=== PATIENT | female | born 1950 | race Caucasian/White ===

== ENCOUNTER → 2018-05-29 | Outpatient (CLI) | payer OTHER | LOC: M PAIN 10:00 | DX: M53.3 Sacrococcygeal disorders, not elsewhere classified (principal); M43.17 Spondylolisthesis, lumbosacral region; H40.9 Unspecified glaucoma; E78.5 Hyperlipidemia, unspecified; G25.81 Restless legs syndrome; Z79.82 Long term (current) use of aspirin; Z79.891 Long term (current) use of opiate analgesic; Z79.899 Other long term (current) drug therapy; Z88.0 Allergy status to penicillin; Z85.3 Personal history of malignant neoplasm of breast; Z90.49 Acquired absence of other specified parts of digestive tract | CPT/HCPCS: G0463 ==

== ENCOUNTER → 2018-06-18 | Outpatient (CLI) | payer OTHER ==
[~2018-06-18] MED LIST: BUPIVACAINE HCL 0.25% 30 ML VIAL As Ordered; ISOVUE-M 300 61% 15ML VIAL (Q9967) As Ordered; LIDOCAINE 1% SDV INJ 30 ML VIAL As Ordered; TRIAMCINOLONE ACETONIDE SUSP 40 MG/ML VIAL (J3301) As Ordered; diazePAM 5 MG TAB As Ordered
== END ==
LOC: M PAIN 08:30
DX: G89.29 Other chronic pain (principal); M46.1 Sacroiliitis, not elsewhere classified; M53.88 Other specified dorsopathies, sacral and sacrococcygeal region; E78.5 Hyperlipidemia, unspecified; G25.81 Restless legs syndrome; J30.9 Allergic rhinitis, unspecified; M85.80 Other specified disorders of bone density and structure, unspecified site; Z79.82 Long term (current) use of aspirin; Z79.899 Other long term (current) drug therapy; Z88.0 Allergy status to penicillin; Z85.3 Personal history of malignant neoplasm of breast; Z96.652 Presence of left artificial knee joint; Z90.13 Acquired absence of bilateral breasts and nipples; Z87.891 Personal history of nicotine dependence
CPT/HCPCS: J3301

== ENCOUNTER → 2018-07-02 | Outpatient (CLI) | payer OTHER | LOC: M PAIN 09:45 | DX: M53.3 Sacrococcygeal disorders, not elsewhere classified (principal); M43.17 Spondylolisthesis, lumbosacral region; H40.9 Unspecified glaucoma; J30.9 Allergic rhinitis, unspecified; E78.5 Hyperlipidemia, unspecified; M85.80 Other specified disorders of bone density and structure, unspecified site; K64.8 Other hemorrhoids; G25.81 Restless legs syndrome; Z85.3 Personal history of malignant neoplasm of breast; Z79.82 Long term (current) use of aspirin; Z79.899 Other long term (current) drug therapy; Z96.652 Presence of left artificial knee joint; Z90.13 Acquired absence of bilateral breasts and nipples; Z90.49 Acquired absence of other specified parts of digestive tract; Z87.891 Personal history of nicotine dependence; Z88.0 Allergy status to penicillin | CPT/HCPCS: G0463 ==

== ENCOUNTER → 2018-08-22 | Outpatient (CLI) | payer OTHER | LOC: M PAIN 09:30 | DX: M53.3 Sacrococcygeal disorders, not elsewhere classified (principal); M43.17 Spondylolisthesis, lumbosacral region; G89.29 Other chronic pain; E78.5 Hyperlipidemia, unspecified; M85.80 Other specified disorders of bone density and structure, unspecified site; G25.81 Restless legs syndrome; Z79.82 Long term (current) use of aspirin; Z79.899 Other long term (current) drug therapy; Z88.0 Allergy status to penicillin; Z85.3 Personal history of malignant neoplasm of breast | CPT/HCPCS: G0463 ==

== ENCOUNTER → 2018-09-19 | Outpatient (CLI) | payer OTHER | LOC: M PAIN 14:30 | DX: M46.1 Sacroiliitis, not elsewhere classified (principal); M53.88 Other specified dorsopathies, sacral and sacrococcygeal region; G89.29 Other chronic pain; J30.9 Allergic rhinitis, unspecified; E78.5 Hyperlipidemia, unspecified; M85.80 Other specified disorders of bone density and structure, unspecified site; G25.81 Restless legs syndrome; L40.9 Psoriasis, unspecified; Z79.82 Long term (current) use of aspirin; Z79.899 Other long term (current) drug therapy; Z88.0 Allergy status to penicillin; Z85.3 Personal history of malignant neoplasm of breast; Z87.891 Personal history of nicotine dependence; Z90.13 Acquired absence of bilateral breasts and nipples; Z96.652 Presence of left artificial knee joint | CPT/HCPCS: J3301 ==

== ENCOUNTER → 2018-10-14 | Outpatient (CLI) | payer OTHER | LOC: M PAIN 11:45 | DX: M53.3 Sacrococcygeal disorders, not elsewhere classified (principal); M43.17 Spondylolisthesis, lumbosacral region; J30.9 Allergic rhinitis, unspecified; E78.5 Hyperlipidemia, unspecified; G25.81 Restless legs syndrome; M85.80 Other specified disorders of bone density and structure, unspecified site; Z79.82 Long term (current) use of aspirin; Z79.899 Other long term (current) drug therapy; Z88.0 Allergy status to penicillin; Z85.3 Personal history of malignant neoplasm of breast; Z87.891 Personal history of nicotine dependence; Z96.652 Presence of left artificial knee joint; Z90.13 Acquired absence of bilateral breasts and nipples | CPT/HCPCS: G0463 ==

== ENCOUNTER → 2019-01-14 | Outpatient (CLI) | payer OTHER ==
--- NOTE | 2019-01-28 02:45 | ECWPNPC ---
PATIENT NAME: CYNTHIA LAROSE : 1950 GENDER: FEMALE VISIT DATE: 01/14/2019 DISCHARGE DATE: 01/14/19 1123 VISIT LOCKED DATE TIME: PHYSICIAN: SAHSHI NGUYEN RESOURCE: SHASHI NGUYEN DISCLAIMER : THIS IS A VISIT SUMMARY EXTRACTED FROM THE [facility] CHART. IT IS NOT A COPY OF THE [employer] [employer] PROGRESS NOTE. MTDD
== END ==
LOC: M PAIN 10:00
PROVIDERS: ATTEND Nurse Practitioner Family
DX: M53.3 Sacrococcygeal disorders, not elsewhere classified (principal); M43.17 Spondylolisthesis, lumbosacral region; G89.29 Other chronic pain; J30.9 Allergic rhinitis, unspecified; E78.5 Hyperlipidemia, unspecified; M85.80 Other specified disorders of bone density and structure, unspecified site; G25.81 Restless legs syndrome; Z79.82 Long term (current) use of aspirin; Z79.899 Other long term (current) drug therapy; Z88.0 Allergy status to penicillin; Z96.652 Presence of left artificial knee joint; Z87.891 Personal history of nicotine dependence; Z85.3 Personal history of malignant neoplasm of breast

== ENCOUNTER → 2019-01-23 | Outpatient (CLI) | payer OTHER ==
[~2019-01-23] MED LIST changes: -BUPIVACAINE HCL 0.25% 30 ML VIAL As Ordered; +BUPIVACAINE HCL 0.25% 30 ML VIAL As Ordered ONE; -ISOVUE-M 300 61% 15ML VIAL (Q9967) As Ordered; +ISOVUE-M 300 61% 15ML VIAL (Q9967) As Ordered ONE; -LIDOCAINE 1% SDV INJ 30 ML VIAL As Ordered; +LIDOCAINE 1% SDV INJ 30 ML VIAL As Ordered ONE; -TRIAMCINOLONE ACETONIDE SUSP 40 MG/ML VIAL (J3301) As Ordered; +TRIAMCINOLONE ACETONIDE SUSP 40 MG/ML VIAL (J3301) As Ordered ONE; -diazePAM 5 MG TAB As Ordered; +diazePAM 5 MG TAB As Ordered ONE
--- NOTE | 2019-01-23 13:40 | REP ---
Partial SI joint series: Bilateral seven views. History: SI joint injection procedure for pain. 18 seconds of fluoroscopy time is reported. Findings: A sequence of seven last image hold fluoroscopically obtained spot radiographs of the SI joints document various needle positions associated with bilateral SI joint injection procedure. Electronically Signed by Jasmeet Johnson MD 01/23/2019 01:46 P
--- NOTE | 2019-02-09 23:27 | ECWPNPC ---
PATIENT NAME: CYNTHIA LAROSE : 1950 GENDER: FEMALE VISIT DATE: 01/23/2019 DISCHARGE DATE: 01/23/19 1313 VISIT LOCKED DATE TIME: PHYSICIAN: DIANA BOOKER MD RESOURCE: DIANA BOOKER MD REASON FOR APPOINTMENT 1. BILAT. SIJ HISTORY OF PRESENT ILLNESS HISTORY OF PRESENT ILLNESS: PAIN THE PATIENT DESCRIBES THE PAIN... FALL RISK SCREENING: SCREENING : NO FALLS IN THE PAST YEAR. CURRENT MEDICATIONS TAKING LATANOPROST 0.005 % SOLUTION 1 DROP INTO AFFECTED EYE IN THE EVENING OPHTHALMIC ONCE A DAY, NOTES: 01/22/19 2100 TAKING CYCLOSPORINE 0.1 % EMULSION OPHTHALMIC , NOTES: 01/22/19 2100 TAKING TIMOLOL MALEATE 0.25 % SOLUTION 1 DROP INTO AFFECTED EYE OPHTHALMIC ONCE A DAY, NOTES: 01/23/19 0800 TAKING ROPINIROLE HCL 0.5 MG TABLET 1 TABLET 1 TO 3 HOURS BEFORE BEDTIME ORALLY ONCE A DAY, NOTES: 01/22/19 2100 TAKING TRAMADOL HCL 50 MG TABLET 1 TABLET NEEDED ORALLY EVERY 6 HRS, NOTES: 01/22/19 1400 TAKING OMEPRAZOLE 20 MG CAPSULE DELAYED RELEASE 1 CAPSULE ORALLY ONCE A DAY, NOTES: 01/23/19 0800 TAKING ATORVASTATIN CALCIUM 10 MG TABLET 1 TABLET ORALLY ONCE A DAY, NOTES: 01/23/19 2100 TAKING ASPIRIN 81 MG TABLET CHEWABLE 1 TABLET ORALLY ONCE A DAY, NOTES: 01/23/19 0800 TAKING MAY HAVE CBD OIL ORALLY BID, NOTES: 01/23/19 0800 NOT-TAKING CALTRATE 600+D 600-800 MG-UNIT TABLET 1 TABLET WITH A MEAL ORALLY ONCE A DAY MEDICATION LIST REVIEWED AND RECONCILED WITH THE PATIENT PAST MEDICAL HISTORY GLAUCOMA LOW BACK PAIN ALLERGIC RHINITIS HYPERLIPIDEMIA DYSPEPSIA, DYSPHAGIA OSTEOPENIA CHOLELITHIASIS HEMORRHOIDS RECTAL MASS RESTLESS LEGS BREAST CANCER ALLERGIES PENICILLIN (FOR ALLERGIES USE ONLY): JOINT PAIN SURGICAL HISTORY LEFT KNEE REPLACEMENT TONSILLECTOMY BILAT MASTECTOMY RIGHT SUBCLAVIAN PORT PLACED AND REMOVED CHOLECYSTECTOMY FAMILY HISTORY FATHER: MOTHER: 89 YRS 2 BROTHER(S) , 1 SISTER(S) - HEALTHY. FATHER-ALZHEIMERS AND PSYCHIATRICE PROBLEMS. SOCIAL HISTORY GENERAL: TOBACCO USE ARE YOU A:FORMER SMOKER LATEX QUESTIONNAIRE LATEX ALLERGY : HAVE YOU EVER DEVELOPED ANY TYPE OF REACTION AFTER HANDLING LATEX PRODUCTS SUCH RUBBER GLOVES, CONDOMS, DIAPHRAGMS, BALLOONS, SOCKS, OR UNDERWEAR?NO LATEX ALLERGY : HAVE YOU EVER DEVELOPED ANY TYPE OF REACTION DURING OR AFTER DENTAL APPOINTMENT, VAGINAL/RECTAL EXAMINATION, SURGICAL PROCEDURE, OR ANY OTHER EXPOSURE?NO LATEX RISK : HAVE YOU EVER HAD ANY DIFFICULTY BREATHING OR HIVES AFTER EATING OR HANDLING ANY FRUITS, OR VEGETABLES; SUCH KIWI, BANANAS, STONE FRUITS, OR CHESTNUTSNO LATEX RISK : DO YOU HAVE A PREVIOUS PERSONAL HISTORY OF MORE THAN NINE SURGERIES, SPINA BIFIDA, OR REPEATED CATHERTIZATIONS? NO LATEX RISK : ARE YOU FREQUENTLY EXPOSED TO LATEX PRODUCTS IN YOUR OCCUPATION?NO DATE ASKED : 01/23/2019 RESTORATION [id number] OTHER LANGUAGE LANGUAGES SPOKEN:QATARI EDUCATION LEVEL OF EDUCATION:FINISHED [employer] DEGREE LEARNING BARRIERS / SPECIAL NEEDS BARRIERS TO LEARNING?NO HEARING IMPAIRED?NO VISION IMPAIRED?YES :CORRECTIVE LENSES COGNITIVELY IMPAIRED?NO READINESS TO LEARN?YES LEARNING PREFERENCES?NO EMOTIONAL BARRIERS?NO SPECIAL DEVICES?YES :CANE OCCUPATION: RETIRED FROM [employer] WORKING WITH MENTALLY DISABLED. DIET: REGULAR. EXERCISE: NONE. MARITAL STATUS: SINGLE. OTHERS AT HOME: OTHER NON-RELATIVE. PAIN CLINIC PFS, CLERGY, PUBLIC HEALTH REFERRALS HAS THE PATIENT BEEN EDUCATED REGARDING HIS/HER PLAN OF CARE?YES HAS THE PATIENT BEEN EDUCATED REGARDING PAIN, THE RISK FOR PAIN, THE IMPORTANCE OF EFFECTIVE PAIN MANAGEMENT, AND THE PAIN ASSESSMENT PROCESS?YES ADVANCE DIRECTIVE ADVANCE DIRECTIVE DISCUSSED WITH PATIENT:YES ON FILE @[facility] NavneetDarryn MELENDEZ BRENDA [phone] HCP REVIEWED NL 10/14/18REVIEWED WITH PT 01/23/19 1115 LAS. HOSPITALIZATION/MAJOR DIAGNOSTIC PROCEDURE SURGERIES REVIEW OF SYSTEMS REVIEWED BY: PROVIDER: . CONSTITUTIONAL: ANY CHANGE IN YOUR MEDICAL CONDITION? NO . CHILLS NO . FEVER NO . INFECTION: DO YOU HAVE NEW INFECTIONS? NO . DO YOU HAVE HISTORY OF MRSA? NO . MUSCULOSKELETAL: ANY NEW PATTERNS OF PAIN OR NUMBNESS? NO . GASTROENTEROLOGY: ANY NEW CHANGE IN BOWEL CONTROL? NO . GENITOURINARY: ANY NEW CHANGE IN BLADDER CONTROL? NO . IS THERE A CHANCE YOU COULD BE ? NO . HEMATOLOGY/LYMPH: DO YOU TAKE ANY BLOOD THINNERS? (FOR EXAMPLE- COUMADIN, PLAVIX, AGGRENOX, PLATEL, PRADAXA, OR XARELTO) NO . WHEN WAS YOUR LAST DOSE? DATE: TIME: . NEUROLOGY: HAVE YOU FALLEN IN THE PAST 12 MONTHS? NO . ANY NEW EXTREMITY NUMBNESS OR WEAKNESS? NO . CARDIOLOGY: DO YOU HAVE A PACEMAKER OR DEFIBRILLATOR? NO . RESPIRATORY: HAVE YOU BEEN SICK IN THE PAST WEEK? NO . FEVER NO . FLU LIKE SYMPTOMS? NO . COUGH NO . INTEGUMENTARY: DO YOU HAVE ANY RASHES OR OPEN SORES? NO . ALLERGIC/IMMUNO: ARE YOU ALLERGIC TO IV DYE? NO . ANY NEW ALLERGIES? NO . PSYCHIATRIC: DO YOU HAVE THOUGHTS OF HURTING YOURSELF OR SOMEONE ELSE? NO . ARE YOU ABUSED, NEGLECTED, OR IN AN UNSAFE ENVIRONMENT? NO . ENDOCRINOLOGY: ARE YOU DIABETIC? NO . OTHER: DO YOU NEED ANY PRESCRIPTIONS? NO . IF YES, PLEASE LIST: ____ . ANY NEW PROBLEMS WITH YOUR MEDICATIONS? NO . WHEN DID YOU LAST EAT? ____01/22/191899 . WHEN DID YOU LAST DRINK? ____01/22/192114 . WHAT DID YOU LAST DRINK? ____TEA . NAME OF PERSON DRIVING YOU HOME? ____CHRIS . DO YOU HAVE ANY OTHER QUESTIONS OR CONCERNS NO . VITAL SIGNS WT 226.2 LBS, HT 69 IN, BMI 33.40 INDEX, BP 118/78 MM HG, HR 84 /MIN, RR 16 /MIN, TEMP 98.0 F, OXYGEN SAT % 95%, SAFE IN ENV? (Y/N) YES, NA INITIALS AR 11:03, REVIEWED BY: ASSESSMENTS SACROILIITIS, NOT ELSEWHERE CLASSIFIED - M46.1 (PRIMARY) PROCEDURES PN SI PRE PROCEDURE DIAGNOSIS SACROILIITIS, SACROILIAC JOINT DYSFUNCTION POST PROCEDURE DIAGNOSIS SACROILIITIS, SACROILIAC JOINT DYSFUNCTION PROCEDURE BILATERAL SACROILIAC JOINT BLOCK SURGEON DR. DIANA BOOKER JEWELRY ENGRAVER NONE ANESTHESIA LOCAL PRE PROCEDURE NOTE PATIENT WITH HISTORY OF CHRONIC LOW BACK PAIN. I EVALUATED THE PATIENT AND REVIEWED THE CHART. I WENT OVER THE RISKS, ALTERNATIVES, AND BENEFITS ASSOCIATED WITH THIS PROCEDURE. THE PATIENT WOULD LIKE TO PROCEED AND GAVE CONSENT TO PERFORM THE PROCEDURE. THE PATIENT DENIES UNEXPLAINABLE WEIGHT LOSS, FEVER, CHILLS, OR NEW CHANGES IN URINARY OR BOWEL CONTROL DESCRIPTION OF PROCEDURE THE PATIENT WAS BROUGHT TO THE PROCEDURE ROOM AND PLACED IN THE PRONE POSITION. THE LUMBOSACRAL AREA WAS CLEANED WITH CHLORAPREP SOLUTION AND DRAPED ASEPTICALLY. THE PROCEDURE WAS DONE UNDER STERILE CONDITIONS. I CHECKED LATERALITY AND THE LEVEL WHERE THE PROCEDURE WAS GOING TO BE PERFORMED WITH THE PATIENT AND THE SUPPORTING STAFF AT THE MOMENT OF THE TIME OUT IN THE PROCEDURE ROOM. UNDER FLUOROSCOPIC GUIDANCE, TARGET POINT WAS SELECTED AT THE LOWER BORDER OF THE RIGHT AND LEFT SACROILIAC JOINT. TARGET POINT WAS SELECTED AFTER MEDIAL ROTATION AND TILT OF THE MAGNIFIER OF THE C-ARM. LIDOCAINE WAS USED TO NUMB THE SKIN AND SUBCUTANEOUS TISSUE BELOW IT. A SPINAL NEEDLE, 22-GAUGE, WAS ADVANCED UNDER FLUOROSCOPIC GUIDANCE AND FOLLOWING PATIENT FEEDBACK UNTIL THE TARGET AREA WAS TOUCHED. THE POSITION OF THE NEEDLE WAS VERIFIED WITH AP AND LATERAL VIEWS. AFTER PROPER POSITION OF THE NEEDLE WAS ACHIEVED, ISOVUE M DYE 30%, 0.25 ML, WAS INJECTED SHOWING SPREAD OF THE DYE. THEN, A SOLUTION OF 20 MG OF KENALOG WAS INJECTED IN RIGHT AND LEFT JOINT WITH 3 ML OF BUPIVACAINE 0.125%. THERE WAS NO EVIDENCE OF BLOOD, PARESTHESIA OR CEREBROSPINAL FLUID DURING THE PROCEDURE. THE PATIENT WAS SENT TO THE RECOVERY ROOM. THE PATIENT WAS MOVING THE EXTREMITIES AND DOING WELL. THERE WAS NO COMPLICATION DURING THE PROCEDURE. FLUOROSCOPY TIME WAS 18 SECONDS POST PROCEDURE NOTE THE PATIENT WILL BE SEEN IN A FOLLOW UP IN THE NEXT FEW WEEKS. INSTRUCTIONS WERE GIVEN, QUESTIONS WERE ANSWERED, AND THE PATIENT EXPRESSED UNDERSTANDING AND AGREED WITH THE PLAN. I, KELLEY RAMOS, DOCUMENTED THE ABOVE INFORMATION ACTING A SCRIBE FOR DR. BOOKER. I HAVE REVIEWED THE ABOVE DOCUMENT, WRITTEN BY KELLEY KERNS AND I VERIFY THAT IT IS ACCURATE. DIAGNOSTIC IM[facility] FLUORO GUIDANCE (PAIN)[id number] PROCEDURE CODES 6045F RADXPS IN END [id number] PXD [id number] INJECT SACROILIAC JOINT, MODIFIERS: 50 DISPOSITION & COMMUNICATION FOLLOW UP 3 WEEKS ELECTRONICALLY SIGNED BY DIANA BOOKER MD, MD ON 02/09/2019 AT 07:38 PM EDT DISCLAIMER : THIS IS A VISIT SUMMARY EXTRACTED FROM THE [employer] CHART. IT IS NOT A COPY OF THE [employer] PROGRESS NOTE. MTDD
== END ==
LOC: M PAIN 11:00
PROVIDERS: ATTEND Anesthesiology
DX: G89.29 Other chronic pain (principal); M46.1 Sacroiliitis, not elsewhere classified; M53.88 Other specified dorsopathies, sacral and sacrococcygeal region; E78.5 Hyperlipidemia, unspecified; M85.00 Fibrous dysplasia (monostotic), unspecified site; G25.81 Restless legs syndrome; Z79.82 Long term (current) use of aspirin; Z79.899 Other long term (current) drug therapy; Z88.0 Allergy status to penicillin; Z90.13 Acquired absence of bilateral breasts and nipples; Z96.652 Presence of left artificial knee joint; Z85.3 Personal history of malignant neoplasm of breast
CPT/HCPCS: G0260; J3301; Q9967

== ENCOUNTER → 2019-03-05 | Outpatient (CLI) | payer OTHER ==
--- NOTE | 2019-03-21 01:51 | ECWPNPC ---
PATIENT NAME: CYNTHIA LAROSE : 1950 GENDER: FEMALE VISIT DATE: 03/05/2019 DISCHARGE DATE: 03/05/19 1225 VISIT LOCKED DATE TIME: PHYSICIAN: SHASHI NGUYEN RESOURCE: SHASHI NGUYEN REASON FOR APPOINTMENT 1. POST SIJ HISTORY OF PRESENT ILLNESS HISTORY OF PRESENT ILLNESS: HERE FOR POST PROCEDURE F/U.HAD BILATERAL SIJ ON 01-23-19.REPORTING >50% IMPROVEMENT IN PAIN THAT CONTINUES TODAY.REPORTING LESS NEED TO TAKE TRAMADOL.REPORTING IMPROVED ACTIVITY TOLERANCE. PAIN THE PATIENT DESCRIBES THE PAIN... THE PATIENT DESCRIBES THE PAIN... THE PATIENT DESCRIBES THE PAIN... FALL RISK SCREENING: SCREENING :NO FALLS REPORTED IN THE LAST YEAR CURRENT MEDICATIONS TAKING LATANOPROST 0.005 % SOLUTION 1 DROP INTO AFFECTED EYE IN THE EVENING OPHTHALMIC ONCE A DAY TAKING CYCLOSPORINE 0.1 % EMULSION 1 DROP INTO AFFECTED EYE OPHTHALMIC BEFORE BEDTIME TAKING TIMOLOL MALEATE 0.25 % SOLUTION 1 DROP INTO AFFECTED EYE OPHTHALMIC ONCE A DAY TAKING ROPINIROLE HCL 0.5 MG TABLET 1 TABLET 1 TO 3 HOURS BEFORE BEDTIME ORALLY ONCE A DAY TAKING TRAMADOL HCL 50 MG TABLET 1 TABLET NEEDED ORALLY EVERY 6 HRS TAKING OMEPRAZOLE 20 MG CAPSULE DELAYED RELEASE 1 CAPSULE ORALLY ONCE A DAY TAKING ATORVASTATIN CALCIUM 10 MG TABLET 1 TABLET ORALLY ONCE A DAY TAKING MAY HAVE CBD OIL ORALLY BID NOT-TAKING ASPIRIN 81 MG TABLET CHEWABLE 1 TABLET ORALLY ONCE A DAY NOT-TAKING CALTRATE 600+D 600-800 MG-UNIT TABLET 1 TABLET WITH A MEAL ORALLY ONCE A DAY MEDICATION LIST REVIEWED AND RECONCILED WITH THE PATIENT PAST MEDICAL HISTORY GLAUCOMA LOW BACK PAIN ALLERGIC RHINITIS HYPERLIPIDEMIA DYSPEPSIA, DYSPHAGIA OSTEOPENIA CHOLELITHIASIS HEMORRHOIDS RECTAL MASS RESTLESS LEGS BREAST CANCER ALLERGIES PENICILLIN (FOR ALLERGIES USE ONLY): JOINT PAIN - SIDE EFFECTS SURGICAL HISTORY LEFT KNEE REPLACEMENT TONSILLECTOMY BILAT MASTECTOMY RIGHT SUBCLAVIAN PORT PLACED AND REMOVED CHOLECYSTECTOMY FAMILY HISTORY FATHER: , NON KNOWN HISTORY MOTHER: 89 YRS 2 BROTHER(S) , 1 SISTER(S) - HEALTHY. MOTHER-ALZHEIMERS. SOCIAL HISTORY GENERAL: TOBACCO USE ARE YOU A:FORMER SMOKER LATEX QUESTIONNAIRE LATEX ALLERGY : HAVE YOU EVER DEVELOPED ANY TYPE OF REACTION AFTER HANDLING LATEX PRODUCTS SUCH RUBBER GLOVES, CONDOMS, DIAPHRAGMS, BALLOONS, SOCKS, OR UNDERWEAR?NO LATEX ALLERGY : HAVE YOU EVER DEVELOPED ANY TYPE OF REACTION DURING OR AFTER DENTAL APPOINTMENT, VAGINAL/RECTAL EXAMINATION, SURGICAL PROCEDURE, OR ANY OTHER EXPOSURE?NO LATEX RISK : HAVE YOU EVER HAD ANY DIFFICULTY BREATHING OR HIVES AFTER EATING OR HANDLING ANY FRUITS, OR VEGETABLES; SUCH KIWI, BANANAS, STONE FRUITS, OR CHESTNUTSNO LATEX RISK : DO YOU HAVE A PREVIOUS PERSONAL HISTORY OF MORE THAN NINE SURGERIES, SPINA BIFIDA, OR REPEATED CATHERTIZATIONS? NO LATEX RISK : ARE YOU FREQUENTLY EXPOSED TO LATEX PRODUCTS IN YOUR OCCUPATION?NO DATE ASKED : 03/05/2019 ALCOHOL SCREENING DID YOU HAVE A DRINK CONTAINING ALCOHOL IN THE PAST YEAR?NO POINTS0 INTERPRETATIONNEGATIVE RECREATIONAL DRUG USE DRUG USE?NO MU-ISM [id number] OTHER LANGUAGE LANGUAGES SPOKEN:PORTUGUESE EDUCATION LEVEL OF EDUCATION:FINISHED [employer] DEGREE LEARNING BARRIERS / SPECIAL NEEDS BARRIERS TO LEARNING?NO HEARING IMPAIRED?NO VISION IMPAIRED?YES :CORRECTIVE LENSES COGNITIVELY IMPAIRED?NO READINESS TO LEARN?YES LEARNING PREFERENCES?NO LEARNING CAPABILITIES PRESENT?YES EMOTIONAL BARRIERS?NO SPECIAL DEVICES?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 DIET: REGULAR. EXERCISE: NONE. MARITAL STATUS: SINGLE. OTHERS AT HOME: OTHER NON-RELATIVE. PAIN CLINIC PFS, CLERGY, PUBLIC HEALTH REFERRALS HAS THE PATIENT BEEN EDUCATED REGARDING HIS/HER PLAN OF CARE?YES HAS THE PATIENT BEEN EDUCATED REGARDING PAIN, THE RISK FOR PAIN, THE IMPORTANCE OF EFFECTIVE PAIN MANAGEMENT, AND THE PAIN ASSESSMENT PROCESS?YES ADVANCE DIRECTIVE ADVANCE DIRECTIVE DISCUSSED WITH PATIENT:YES ON FILE @[facility] Celeste GUTIERREZ [phone] HCP REVIEWED 10/14/18REVIEWED WITH PT 01/23/19 1115 [id number] REVIEWED WITH PT. AD. HOSPITALIZATION/MAJOR DIAGNOSTIC PROCEDURE SURGERIES REVIEW OF SYSTEMS REVIEWED BY: PROVIDER: SHASHI ALEJANDRA . CONSTITUTIONAL: ANY CHANGE IN YOUR MEDICAL CONDITION? NO . CHILLS NO . FEVER NO . INFECTION: DO YOU HAVE NEW INFECTIONS? NO . DO YOU HAVE HISTORY OF MRSA? NO . MUSCULOSKELETAL: ANY NEW PATTERNS OF PAIN OR NUMBNESS? NO . GASTROENTEROLOGY: ANY NEW CHANGE IN BOWEL CONTROL? NO . GENITOURINARY: ANY NEW CHANGE IN BLADDER CONTROL? NO . IS THERE A CHANCE YOU COULD BE ? NO . HEMATOLOGY/LYMPH: DO YOU TAKE ANY BLOOD THINNERS? (FOR EXAMPLE- COUMADIN, PLAVIX, AGGRENOX, PLATEL, PRADAXA, OR XARELTO) NO . WHEN WAS YOUR LAST DOSE? DATE: TIME: . NEUROLOGY: HAVE YOU FALLEN IN THE PAST 12 MONTHS? NO . ANY NEW EXTREMITY NUMBNESS OR WEAKNESS? NO . CARDIOLOGY: DO YOU HAVE A PACEMAKER OR DEFIBRILLATOR? NO . RESPIRATORY: HAVE YOU BEEN SICK IN THE PAST WEEK? NO . FEVER NO . FLU LIKE SYMPTOMS? NO . COUGH NO . INTEGUMENTARY: DO YOU HAVE ANY RASHES OR OPEN SORES? NO . ALLERGIC/IMMUNO: ARE YOU ALLERGIC TO IV DYE? NO . ANY NEW ALLERGIES? NO . PSYCHIATRIC: DO YOU HAVE THOUGHTS OF HURTING YOURSELF OR SOMEONE ELSE? NO . ARE YOU ABUSED, NEGLECTED, OR IN AN UNSAFE ENVIRONMENT? NO . ENDOCRINOLOGY: ARE YOU DIABETIC? NO . OTHER: DO YOU NEED ANY PRESCRIPTIONS? NO . IF YES, PLEASE LIST: ____ . ANY NEW PROBLEMS WITH YOUR MEDICATIONS? NO . WHEN DID YOU LAST EAT? ____ . WHEN DID YOU LAST DRINK? ____ . WHAT DID YOU LAST DRINK? ____ . NAME OF PERSON DRIVING YOU HOME? ____ . DO YOU HAVE ANY OTHER QUESTIONS OR CONCERNS NO . VITAL SIGNS WT 226.2 LBS, HT 69 IN, BMI 33.40 INDEX, BP 126/80 MM HG, HR 77 /MIN, RR 16 /MIN, TEMP 97.1 F, OXYGEN SAT % 92%, SAFE IN ENV? (Y/N) Y, NA INITIALS MD 11:50, REVIEWED BY: CEDRIC. EXAMINATION GENERAL EXAMINATION: GENERAL APPEARANCE:AWAKE,ALERT ,PLEAASANT . PSYCHAFFECT NORMAL . LUNGS:LUNG NAIR ARE CLEAR TO AUSCULTATION BILATERALLY. GOOD MOVEMENT OF AIR . HEART:S1, S2 IN A REGULAR RATE AND RHYTHM. NO SIGNIFICANT MURMURS, RUBS OR GALLOPS NOTED . ASSESSMENTS SACROILIITIS, NOT ELSEWHERE CLASSIFIED - M46.1 (PRIMARY) TREATMENT SACROILIITIS, NOT ELSEWHERE CLASSIFIED NOTES: CONTINUE HOME EXCERSISE. PROCEDURE CODES FA211 ESTABILISHED PATIENT [facility] CHARGE DISPOSITION & COMMUNICATION FOLLOW UP 2 MONTHS ELECTRONICALLY SIGNED BY JUSTYN BOTELLO ON 03/20/2019 AT 04:21 PM EDT DISCLAIMER : THIS IS A VISIT SUMMARY EXTRACTED FROM THE [employer] CHART. IT IS NOT A COPY OF THE [employer] PROGRESS NOTE. MTDD
== END ==
LOC: M PAIN 10:30
PROVIDERS: ATTEND Nurse Practitioner Family
DX: M46.1 Sacroiliitis, not elsewhere classified (principal); E78.5 Hyperlipidemia, unspecified; M85.88 Other specified disorders of bone density and structure, other site; G25.81 Restless legs syndrome; Z85.3 Personal history of malignant neoplasm of breast; Z90.13 Acquired absence of bilateral breasts and nipples; Z87.891 Personal history of nicotine dependence; Z88.0 Allergy status to penicillin; Z79.899 Other long term (current) drug therapy

== ENCOUNTER → 2019-05-06 | Outpatient (CLI) | payer OTHER ==
--- NOTE | 2019-05-15 01:11 | ECWPNPC ---
PATIENT NAME: CYNTHIA LAROSE : 1950 GENDER: FEMALE VISIT DATE: 05/06/2019 DISCHARGE DATE: 05/06/19 1157 VISIT LOCKED DATE TIME: PHYSICIAN: SHASHI NGUYEN RESOURCE: SHASHI NGUYEN REASON FOR APPOINTMENT 1. BACK HISTORY OF PRESENT ILLNESS HISTORY OF PRESENT ILLNESS: HERE FOR F/U OF CHRONIC LBP.PAIN HAS ESCALATED OVER THE PAST MONTH.HAS RESPONDED WELL TO BILAT. SIJ IN PAST.RATING PAIN VAS 3/10. PAIN THE PATIENT DESCRIBES THE PAIN... FALL RISK SCREENING: SCREENING :NO FALLS REPORTED IN THE LAST YEAR CURRENT MEDICATIONS TAKING LATANOPROST 0.005 % SOLUTION 1 DROP INTO AFFECTED EYE IN THE EVENING OPHTHALMIC ONCE A DAY TAKING CYCLOSPORINE 0.1 % EMULSION 1 DROP INTO AFFECTED EYE OPHTHALMIC BEFORE BEDTIME TAKING TIMOLOL MALEATE 0.25 % SOLUTION 1 DROP INTO AFFECTED EYE OPHTHALMIC ONCE A DAY TAKING ROPINIROLE HCL 0.5 MG TABLET 1 TABLET 1 TO 3 HOURS BEFORE BEDTIME ORALLY ONCE A DAY TAKING TRAMADOL HCL 50 MG TABLET 1 TABLET NEEDED ORALLY EVERY 6 HRS TAKING OMEPRAZOLE 20 MG CAPSULE DELAYED RELEASE 1 CAPSULE ORALLY ONCE A DAY TAKING MAY HAVE CBD OIL ORALLY BID TAKING ALBUTEROL SULFATE HFA 108 (90 BASE) MCG/ACT AEROSOL SOLUTION 2 PUFFS NEEDED INHALATION EVERY 6 HRS NOT-TAKING ATORVASTATIN CALCIUM 10 MG TABLET 1 TABLET ORALLY ONCE A DAY NOT-TAKING ASPIRIN 81 MG TABLET CHEWABLE 1 TABLET ORALLY ONCE A DAY NOT-TAKING CALTRATE 600+D 600-800 MG-UNIT TABLET 1 TABLET WITH A MEAL ORALLY ONCE A DAY MEDICATION LIST REVIEWED AND RECONCILED WITH THE PATIENT PAST MEDICAL HISTORY GLAUCOMA LOW BACK PAIN ALLERGIC RHINITIS HYPERLIPIDEMIA DYSPEPSIA, DYSPHAGIA OSTEOPENIA CHOLELITHIASIS HEMORRHOIDS RECTAL MASS RESTLESS LEGS BREAST CANCER ALLERGIES PENICILLIN (FOR ALLERGIES USE ONLY): JOINT PAIN - SIDE EFFECTS SURGICAL HISTORY LEFT KNEE REPLACEMENT TONSILLECTOMY BILAT MASTECTOMY RIGHT SUBCLAVIAN PORT PLACED AND REMOVED CHOLECYSTECTOMY FAMILY HISTORY FATHER: , NON KNOWN HISTORY MOTHER: 89 YRS 2 BROTHER(S) , 1 SISTER(S) - HEALTHY. MOTHER-ALZHEIMERS. SOCIAL HISTORY GENERAL: TOBACCO USE ARE YOU A:FORMER SMOKER OTHERS AT HOME: OTHER NON-RELATIVE. EDUCATION LEVEL OF EDUCATION:FINISHED [employer] DEGREE DIET: REGULAR. LANGUAGE LANGUAGES SPOKEN:MONEGASQUE DOMESTIC VIOLENCE DO YOU FEEL SAFE IN YOUR ENVIRONMENT?YES RECREATIONAL DRUG USE DRUG USE?NO EXERCISE: NONE. 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 NEEDED?NO PAIN CLINIC PFS, CLERGY, PUBLIC HEALTH REFERRALS HAS THE PATIENT BEEN EDUCATED REGARDING HIS/HER PLAN OF CARE?YES HAS THE PATIENT BEEN EDUCATED REGARDING PAIN, THE RISK FOR PAIN, THE IMPORTANCE OF EFFECTIVE PAIN MANAGEMENT, AND THE PAIN ASSESSMENT PROCESS?YES LATEX QUESTIONNAIRE LATEX ALLERGY : HAVE YOU EVER DEVELOPED ANY TYPE OF REACTION AFTER HANDLING LATEX PRODUCTS SUCH RUBBER GLOVES, CONDOMS, DIAPHRAGMS, BALLOONS, SOCKS, OR UNDERWEAR?NO LATEX ALLERGY : HAVE YOU EVER DEVELOPED ANY TYPE OF REACTION DURING OR AFTER DENTAL APPOINTMENT, VAGINAL/RECTAL EXAMINATION, SURGICAL PROCEDURE, OR ANY OTHER EXPOSURE?NO LATEX RISK : HAVE YOU EVER HAD ANY DIFFICULTY BREATHING OR HIVES AFTER EATING OR HANDLING ANY FRUITS, OR VEGETABLES; SUCH KIWI, BANANAS, STONE FRUITS, OR CHESTNUTSNO LATEX RISK : DO YOU HAVE A PREVIOUS PERSONAL HISTORY OF MORE THAN NINE SURGERIES, SPINA BIFIDA, OR REPEATED CATHERTIZATIONS? NO LATEX RISK : ARE YOU FREQUENTLY EXPOSED TO LATEX PRODUCTS IN YOUR OCCUPATION?NO DATE ASKED : 03/05/2019 ADVANCE DIRECTIVE ADVANCE DIRECTIVE DISCUSSED WITH PATIENT:YES HCP ON FILE [facility] GUTIERRE[facility] [phone] & ELBA LAROSE (SISTER) [phone] (HOME), (CELL) SIKH [id number] OTHER MARITAL STATUS: SINGLE. ALCOHOL SCREENING DID YOU HAVE A DRINK CONTAINING ALCOHOL IN THE PAST YEAR?NO POINTS0 INTERPRETATIONNEGATIVE OCCUPATION: RETIRED FROM [employer] WORKING WITH MENTALLY DISABLED. REVIEWED NL 10/14/18REVIEWED WITH PT 01/23/19 1115 [id number] REVIEWED WITH PT. ADREVIEWED WITH PATIENT 05/06/19 1128 JS. HOSPITALIZATION/MAJOR DIAGNOSTIC PROCEDURE SURGERIES REVIEW OF SYSTEMS REVIEWED BY: PROVIDER: SHASHI ALEJANDRA . CONSTITUTIONAL: ANY CHANGE IN YOUR MEDICAL CONDITION? NO . CHILLS NO . FEVER NO . INFECTION: DO YOU HAVE NEW INFECTIONS? NO . DO YOU HAVE HISTORY OF MRSA? NO . MUSCULOSKELETAL: ANY NEW PATTERNS OF PAIN OR NUMBNESS? NO . GASTROENTEROLOGY: ANY NEW CHANGE IN BOWEL CONTROL? NO . GENITOURINARY: ANY NEW CHANGE IN BLADDER CONTROL? NO . IS THERE A CHANCE YOU COULD BE ? NO . HEMATOLOGY/LYMPH: DO YOU TAKE ANY BLOOD THINNERS? (FOR EXAMPLE- COUMADIN, PLAVIX, AGGRENOX, PLATEL, PRADAXA, OR XARELTO) NO . WHEN WAS YOUR LAST DOSE? DATE: TIME: . NEUROLOGY: HAVE YOU FALLEN IN THE PAST 12 MONTHS? NO . ANY NEW EXTREMITY NUMBNESS OR WEAKNESS? NO . CARDIOLOGY: DO YOU HAVE A PACEMAKER OR DEFIBRILLATOR? NO . RESPIRATORY: HAVE YOU BEEN SICK IN THE PAST WEEK? NO . FEVER NO . FLU LIKE SYMPTOMS? NO . COUGH NO . INTEGUMENTARY: DO YOU HAVE ANY RASHES OR OPEN SORES? NO . ALLERGIC/IMMUNO: ARE YOU ALLERGIC TO IV DYE? NO . ANY NEW ALLERGIES? NO . PSYCHIATRIC: DO YOU HAVE THOUGHTS OF HURTING YOURSELF OR SOMEONE ELSE? NO . ARE YOU ABUSED, NEGLECTED, OR IN AN UNSAFE ENVIRONMENT? NO . ENDOCRINOLOGY: ARE YOU DIABETIC? NO . OTHER: DO YOU NEED ANY PRESCRIPTIONS? NO . IF YES, PLEASE LIST: ____ . ANY NEW PROBLEMS WITH YOUR MEDICATIONS? NO . WHEN DID YOU LAST EAT? ____ . WHEN DID YOU LAST DRINK? ____ . WHAT DID YOU LAST DRINK? ____ . NAME OF PERSON DRIVING YOU HOME? ____ . DO YOU HAVE ANY OTHER QUESTIONS OR CONCERNS NO . VITAL SIGNS WT 227.4 LBS, HT 69 IN, BMI 33.58 INDEX, BP 139/76 MM HG, HR 93 /MIN, RR 16 /MIN, TEMP 97.2 F, OXYGEN SAT % 92%, SAFE IN ENV? (Y/N) YES, NA INITIALS WV 11:04, REVIEWED BY: DARVIN. EXAMINATION GENERAL EXAMINATION: GENERAL APPEARANCE: AWAKE,ALERT ,PLEAASANT . PSYCH AFFECT NORMAL . NECK:TRACHEA MIDLINE. NO CERVICAL OR SUPRACLAVICULAR LYMPHADENOPATHY NOTED. LUNGS: LUNG NAIR ARE CLEAR TO AUSCULTATION BILATERALLY. GOOD MOVEMENT OF AIR . HEART: S1, S2 IN A REGULAR RATE AND RHYTHM. NO SIGNIFICANT MURMURS, RUBS OR GALLOPS NOTED . MUSCULOSKELETAL:MUSCLE STRENGTH TESTING 5/5 BILATERAL LOWER EXTREMITIES , PALPATION: POSITIVE FOR PAIN OVER L/S SPINE. POSITIVE FOR PAIN OVER L/S PARSPINALS SPECIFIC POINT TENDERNESS OVER BILATERAL SIJ. NEUROLOGIC EXAM:NORMAL SENSATION TO LIGHT TOUCH LOWER EXTREMITIES. DIAGNOSTIC:MRI L/S 02-28-18-REVIEWED. ASSESSMENTS SACROILIITIS, NOT ELSEWHERE CLASSIFIED - M46.1 (PRIMARY) TREATMENT SACROILIITIS, NOT ELSEWHERE CLASSIFIED NOTES: BILABHISHEK. SIJ. PREVENTIVE MEDICINE PAIN CLINIC TEACHING: PROCEDURE TEACHING REVIEWED INFORMATION ON SACROILIAC JOINT INJECTION WITH PATIENT. ALSO REVIEWED PRE-PROCEDURE INSTRUCTIONS. PATIENT VERBALIZED AN UNDERSTANDING.. PROCEDURE CODES FA211 ESTABILISHED PATIENT [facility] CHARGE DISPOSITION & COMMUNICATION FOLLOW UP POST (REASON: BILAT. SIJ) ELECTRONICALLY SIGNED BY JUSTYN BOTELLO ON 05/14/2019 AT 10:28 AM EDT DISCLAIMER : THIS IS A VISIT SUMMARY EXTRACTED FROM THE [employer] CHART. IT IS NOT A COPY OF THE [employer] PROGRESS NOTE. JORDYN
== END ==
LOC: M PAIN 10:45
PROVIDERS: ATTEND Nurse Practitioner Family
DX: M46.1 Sacroiliitis, not elsewhere classified (principal); G89.29 Other chronic pain; E78.5 Hyperlipidemia, unspecified; M85.88 Other specified disorders of bone density and structure, other site; G25.81 Restless legs syndrome; Z96.652 Presence of left artificial knee joint; Z87.891 Personal history of nicotine dependence; Z88.0 Allergy status to penicillin; Z79.899 Other long term (current) drug therapy

== ENCOUNTER → 2019-06-11 | Outpatient (CLI) | payer OTHER | LOC: M PAIN 11:45 | PROVIDERS: ATTEND Anesthesiology | DX: M46.1 Sacroiliitis, not elsewhere classified (principal); Z53.8 Procedure and treatment not carried out for other reasons ==

== ENCOUNTER → 2019-06-26 | Outpatient (CLI) | payer OTHER ==
[~2019-06-26] MED LIST changes: +ISOVUE-M 200 41% 20ML VIAL (Q9966) As Ordered ONE; -ISOVUE-M 300 61% 15ML VIAL (Q9967) As Ordered ONE
--- NOTE | 2019-06-26 21:40 | REP ---
C-ARM VIEWS SACROILIAC JOINTS: Clinical history: Pain. Three C-Arm views sacroiliac joints performed during sacroiliac joint injection performed by Dr. Dash. A needle is seen along each sacroiliac joint. 14 seconds fluoroscopy time utilized. Electronically Signed by Roby Isbell MD 06/27/2019 10:06 A
--- NOTE | 2019-07-09 00:14 | ECWPNPC ---
PATIENT NAME: CYNTHIA LAROSE : 1950 GENDER: FEMALE VISIT DATE: 06/26/2019 DISCHARGE DATE: 06/26/19 1358 VISIT LOCKED DATE TIME: PHYSICIAN: DIANA BOOKER MD RESOURCE: DIANA BOOKER MD REASON FOR APPOINTMENT 1. BILABHISHEK. CAPO PER DR Thorpe HISTORY OF PRESENT ILLNESS HISTORY OF PRESENT ILLNESS: PAIN THE PATIENT DESCRIBES THE PAIN... FALL RISK SCREENING: SCREENING :NO FALLS REPORTED IN THE LAST YEAR CURRENT MEDICATIONS TAKING LATANOPROST 0.005 % SOLUTION 1 DROP INTO AFFECTED EYE IN THE EVENING OPHTHALMIC ONCE A DAY, NOTES: 06/25 2130 TAKING CYCLOSPORINE 0.1 % EMULSION 1 DROP INTO AFFECTED EYE OPHTHALMIC BEFORE BEDTIME, NOTES: 06/25 1500 TAKING TIMOLOL MALEATE 0.25 % SOLUTION 1 DROP INTO AFFECTED EYE OPHTHALMIC ONCE A DAY, NOTES: 06/26 700 TAKING ROPINIROLE HCL 0.5 MG TABLET 1 TABLET 1 TO 3 HOURS BEFORE BEDTIME ORALLY ONCE A DAY, NOTES: 06/25 2130 TAKING TRAMADOL HCL 50 MG TABLET 1 TABLET NEEDED ORALLY EVERY 6 HRS, NOTES: 06/25 2130 TAKING OMEPRAZOLE 20 MG CAPSULE DELAYED RELEASE 1 CAPSULE ORALLY ONCE A DAY, NOTES: 06/26 700 TAKING MAY HAVE CBD OIL ORALLY BID, NOTES: 06/26 700 TAKING OLODATEROL HCL 2.5 MCG/ACT AEROSOL SOLUTION 2 PUFFS INHALATION ONCE A DAY, NOTES: 06/25 1600 TAKING EZETIMIBE 10 MG TABLET 1 TABLET ORALLY ONCE A DAY, NOTES: 06/25 2130 NOT-TAKING ALBUTEROL SULFATE HFA 108 (90 BASE) MCG/ACT AEROSOL SOLUTION 2 PUFFS NEEDED INHALATION EVERY 6 HRS NOT-TAKING ATORVASTATIN CALCIUM 10 MG TABLET 1 TABLET ORALLY ONCE A DAY NOT-TAKING ASPIRIN 81 MG TABLET CHEWABLE 1 TABLET ORALLY ONCE A DAY NOT-TAKING CALTRATE 600+D 600-800 MG-UNIT TABLET 1 TABLET WITH A MEAL ORALLY ONCE A DAY MEDICATION LIST REVIEWED AND RECONCILED WITH THE PATIENT PAST MEDICAL HISTORY GLAUCOMA LOW BACK PAIN ALLERGIC RHINITIS HYPERLIPIDEMIA DYSPEPSIA, DYSPHAGIA OSTEOPENIA CHOLELITHIASIS HEMORRHOIDS RECTAL MASS RESTLESS LEGS BREAST CANCER COPD ALLERGIES PENICILLIN (FOR ALLERGIES USE ONLY): JOINT PAIN - SIDE EFFECTS SURGICAL HISTORY LEFT KNEE REPLACEMENT TONSILLECTOMY BILAT MASTECTOMY RIGHT SUBCLAVIAN PORT PLACED AND REMOVED CHOLECYSTECTOMY FAMILY HISTORY FATHER: , NON KNOWN HISTORY MOTHER: 89 YRS 2 BROTHER(S) , 1 SISTER(S) - HEALTHY. MOTHER-ALZHEIMERS. SOCIAL HISTORY GENERAL: TOBACCO USE ARE YOU A:FORMER SMOKER OTHERS AT HOME: OTHER NON-RELATIVE. EDUCATION LEVEL OF EDUCATION:FINISHED [employer] DEGREE DIET: REGULAR. LANGUAGE LANGUAGES SPOKEN:WELSH DOMESTIC VIOLENCE DO YOU FEEL SAFE IN YOUR ENVIRONMENT?YES RECREATIONAL DRUG USE DRUG USE?NO EXERCISE: NONE. 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 CLINIC PFS, CLERGY, PUBLIC HEALTH REFERRALS HAS THE PATIENT BEEN EDUCATED REGARDING HIS/HER PLAN OF CARE?YES HAS THE PATIENT BEEN EDUCATED REGARDING PAIN, THE RISK FOR PAIN, THE IMPORTANCE OF EFFECTIVE PAIN MANAGEMENT, AND THE PAIN ASSESSMENT PROCESS?YES LATEX QUESTIONNAIRE LATEX ALLERGY : HAVE YOU EVER DEVELOPED ANY TYPE OF REACTION AFTER HANDLING LATEX PRODUCTS SUCH RUBBER GLOVES, CONDOMS, DIAPHRAGMS, BALLOONS, SOCKS, OR UNDERWEAR?NO LATEX ALLERGY : HAVE YOU EVER DEVELOPED ANY TYPE OF REACTION DURING OR AFTER DENTAL APPOINTMENT, VAGINAL/RECTAL EXAMINATION, SURGICAL PROCEDURE, OR ANY OTHER EXPOSURE?NO LATEX RISK : HAVE YOU EVER HAD ANY DIFFICULTY BREATHING OR HIVES AFTER EATING OR HANDLING ANY FRUITS, OR VEGETABLES; SUCH KIWI, BANANAS, STONE FRUITS, OR CHESTNUTSNO LATEX RISK : DO YOU HAVE A PREVIOUS PERSONAL HISTORY OF MORE THAN NINE SURGERIES, SPINA BIFIDA, OR REPEATED CATHERIZATIONS? NO LATEX RISK : ARE YOU FREQUENTLY EXPOSED TO LATEX PRODUCTS IN YOUR OCCUPATION?NO DATE ASKED : 06/26/2019 ADVANCE DIRECTIVE ADVANCE DIRECTIVE DISCUSSED WITH PATIENT:YES HCP ON FILE @[facility] Celeste GUTIERREZ [phone] & ELBA LAROSE (SISTER) [phone] (HOME), (CELL) LATTER DAY [id number] OTHER MARITAL STATUS: SINGLE. ALCOHOL SCREENING DID YOU HAVE A DRINK CONTAINING ALCOHOL IN THE PAST YEAR?NO POINTS0 INTERPRETATIONNEGATIVE OCCUPATION: RETIRED FROM [employer] WORKING WITH MENTALLY DISABLED. REVIEWED NL 10/14/18REVIEWED WITH PT 01/23/19 1115 [id number] REVIEWED WITH PT. ADREVIEWED WITH PATIENT 05/06/19 1128 JS06/26/19 REVIEWED WITH PT. AD. HOSPITALIZATION/MAJOR DIAGNOSTIC PROCEDURE SURGERIES REVIEW OF SYSTEMS REVIEWED BY: PROVIDER: . CONSTITUTIONAL: ANY CHANGE IN YOUR MEDICAL CONDITION? YES, ANAL FISSURE . CHILLS NO . FEVER NO . INFECTION: DO YOU HAVE NEW INFECTIONS? YES, OPEN SORE LEFT BUTTOCKS THAT IS STILL DRAINING CLEAR LIQ. HAS BEEN OFF ANTIBIOTIC FOR APPROX. [address] BOOKER AWARE . DO YOU HAVE HISTORY OF MRSA? NO . MUSCULOSKELETAL: ANY NEW PATTERNS OF PAIN OR NUMBNESS? NO . GASTROENTEROLOGY: ANY NEW CHANGE IN BOWEL CONTROL? NO . GENITOURINARY: ANY NEW CHANGE IN BLADDER CONTROL? NO . IS THERE A CHANCE YOU COULD BE ? NO . HEMATOLOGY/LYMPH: DO YOU TAKE ANY BLOOD THINNERS? (FOR EXAMPLE- COUMADIN, PLAVIX, AGGRENOX, PLATEL, PRADAXA, OR XARELTO) NO . WHEN WAS YOUR LAST DOSE? DATE: TIME: . NEUROLOGY: HAVE YOU FALLEN IN THE PAST 12 MONTHS? NO . ANY NEW EXTREMITY NUMBNESS OR WEAKNESS? NO . CARDIOLOGY: DO YOU HAVE A PACEMAKER OR DEFIBRILLATOR? NO . RESPIRATORY: HAVE YOU BEEN SICK IN THE PAST WEEK? NO . FEVER NO . FLU LIKE SYMPTOMS? NO . COUGH NO . INTEGUMENTARY: DO YOU HAVE ANY RASHES OR OPEN SORES? YES, LEFT BUTTOCKS-SEE ABOVE . ALLERGIC/IMMUNO: ARE YOU ALLERGIC TO IV DYE? NO . ANY NEW ALLERGIES? NO . PSYCHIATRIC: DO YOU HAVE THOUGHTS OF HURTING YOURSELF OR SOMEONE ELSE? NO . ARE YOU ABUSED, NEGLECTED, OR IN AN UNSAFE ENVIRONMENT? NO . ENDOCRINOLOGY: ARE YOU DIABETIC? NO . OTHER: DO YOU NEED ANY PRESCRIPTIONS? NO . IF YES, PLEASE LIST: ____ . ANY NEW PROBLEMS WITH YOUR MEDICATIONS? NO . WHEN DID YOU LAST EAT? 06/25 1800 . WHEN DID YOU LAST DRINK? 06/26 0700 . WHAT DID YOU LAST DRINK? BLACK COFFEE . NAME OF PERSON DRIVING YOU HOME? ABRAHAN GUTIERREZ . DO YOU HAVE ANY OTHER QUESTIONS OR CONCERNS NO PT HAS NOT HAD ANY VACCINES IN THE PAST 30 DAYS . VITAL SIGNS WT 227.4 LBS, HT 69 IN, BMI 33.58 INDEX, BP 105/71 MM HG, HR 71 /MIN, RR 16 /MIN, TEMP 97.5 F, OXYGEN SAT % 94%, NA INITIALS SC 10:46, REVIEWED BY: AD. ASSESSMENTS SACROILIITIS, NOT ELSEWHERE CLASSIFIED - M46.1 (PRIMARY) TREATMENT SACROILIITIS, NOT ELSEWHERE CLASSIFIED [facility] FLUORO GUIDANCE (PAIN)[id number] PROCEDURES PN SI PRE PROCEDURE DIAGNOSIS SACROILIITIS, SACROILIAC JOINT DYSFUNCTION POST PROCEDURE DIAGNOSIS SACROILIITIS, SACROILIAC JOINT DYSFUNCTION PROCEDURE BILATERAL SACROILIAC JOINT BLOCK SURGEON DR. DIANA BOOKER WEAVER TIRE CORD NONE ANESTHESIA LOCAL PRE PROCEDURE NOTE PATIENT WITH HISTORY OF CHRONIC LOW BACK PAIN. I EVALUATED THE PATIENT AND REVIEWED THE CHART. I WENT OVER THE RISKS, ALTERNATIVES, AND BENEFITS ASSOCIATED WITH THIS PROCEDURE. THE PATIENT WOULD LIKE TO PROCEED AND GAVE CONSENT TO PERFORM THE PROCEDURE. THE PATIENT DENIES UNEXPLAINABLE WEIGHT LOSS, FEVER, CHILLS, OR NEW CHANGES IN URINARY OR BOWEL CONTROL DESCRIPTION OF PROCEDURE THE PATIENT WAS BROUGHT TO THE PROCEDURE ROOM AND PLACED IN THE PRONE POSITION. THE LUMBOSACRAL AREA WAS CLEANED WITH CHLORAPREP SOLUTION AND DRAPED ASEPTICALLY. THE PROCEDURE WAS DONE UNDER STERILE CONDITIONS. I CHECKED LATERALITY AND THE LEVEL WHERE THE PROCEDURE WAS GOING TO BE PERFORMED WITH THE PATIENT AND THE SUPPORTING STAFF AT THE MOMENT OF THE TIME OUT IN THE PROCEDURE ROOM. UNDER FLUOROSCOPIC GUIDANCE, TARGET POINT WAS SELECTED AT THE LOWER BORDER OF THE RIGHT AND LEFT SACROILIAC JOINT. TARGET POINT WAS SELECTED AFTER MEDIAL ROTATION AND TILT OF THE MAGNIFIER OF THE C-ARM. LIDOCAINE WAS USED TO NUMB THE SKIN AND SUBCUTANEOUS TISSUE BELOW IT. A SPINAL NEEDLE, 22-GAUGE, WAS ADVANCED UNDER FLUOROSCOPIC GUIDANCE AND FOLLOWING PATIENT FEEDBACK UNTIL THE TARGET AREA WAS TOUCHED. THE POSITION OF THE NEEDLE WAS VERIFIED WITH AP AND LATERAL VIEWS. AFTER PROPER POSITION OF THE NEEDLE WAS ACHIEVED, ISOVUE M-200 CONTRAST WAS INJECTED SHOWING SPREAD OF THE DYE. THEN, A SOLUTION OF 30 MG OF KENALOG WAS INJECTED IN THE RIGHT AND LEFT JOINT WITH 3 ML OF BUPIVACAINE 0.125%. THERE WAS NO EVIDENCE OF BLOOD, PARESTHESIA OR CEREBROSPINAL FLUID DURING THE PROCEDURE. THE PATIENT WAS SENT TO THE RECOVERY ROOM. THE PATIENT WAS MOVING THE EXTREMITIES AND DOING WELL. THERE WAS NO COMPLICATION DURING THE PROCEDURE. FLUOROSCOPY TIME WAS 14 SECONDS POST PROCEDURE NOTE THE PATIENT WILL BE SEEN IN A FOLLOW UP IN THE NEXT FEW WEEKS. INSTRUCTIONS WERE GIVEN, QUESTIONS WERE ANSWERED, AND THE PATIENT EXPRESSED UNDERSTANDING AND AGREED WITH THE PLAN. I, ANNETTE ROBERTS, DOCUMENTED THE ABOVE INFORMATION ACTING A SCRIBE FOR DR. BOOKER. I HAVE REVIEWED THE ABOVE DOCUMENT, WRITTEN BY ANNETTE KERNS AND I VERIFY THAT IT IS ACCURATE. PROCEDURE CODES 27776 INJECT SACROILIAC JOINT, MODIFIERS: 50 [id number] RADXPS IN END [id number] PXD DISPOSITION & COMMUNICATION FOLLOW UP 3 WEEKS ELECTRONICALLY SIGNED BY DIANA BOOKER MD, MD ON 07/08/2019 AT 12:11 PM EDT DISCLAIMER : THIS IS A VISIT SUMMARY EXTRACTED FROM THE [employer] CHART. IT IS NOT A COPY OF THE [employer] PROGRESS NOTE. MTDD
== END ==
LOC: M PAIN 10:45
PROVIDERS: ATTEND Anesthesiology
DX: G89.29 Other chronic pain (principal); M46.1 Sacroiliitis, not elsewhere classified; Z79.891 Long term (current) use of opiate analgesic; Z79.899 Other long term (current) drug therapy; Z88.0 Allergy status to penicillin; Z87.891 Personal history of nicotine dependence
CPT/HCPCS: G0260; J3301; Q9966

== ENCOUNTER → 2019-08-11 | Outpatient (CLI) | payer OTHER ==
--- NOTE | 2019-08-12 01:10 | ECWPNPC ---
PATIENT NAME: CYNTHIA LAROSE : 1950 GENDER: FEMALE VISIT DATE: 08/11/2019 DISCHARGE DATE: 08/11/19 1116 VISIT LOCKED DATE TIME: PHYSICIAN: SHASHI NGUYEN RESOURCE: SHASHI NGUYEN REASON FOR APPOINTMENT 1. POST SIJ HISTORY OF PRESENT ILLNESS HISTORY OF PRESENT ILLNESS: HERE FOR F/U OF CHRONIC LBP.HAD BILAT SIJ 06/26/19.REPORTING >80% REDUCTION IN PAIN THAT CONTINUES TODAY.RATING PAIN VAS 0-3/10.DOING WELL. PAIN THE PATIENT DESCRIBES THE PAIN... FALL RISK SCREENING: SCREENING :NO FALLS REPORTED IN THE LAST YEAR CURRENT MEDICATIONS TAKING LATANOPROST 0.005 % SOLUTION 1 DROP INTO AFFECTED EYE IN THE EVENING OPHTHALMIC ONCE A DAY TAKING CYCLOSPORINE 0.1 % EMULSION 1 DROP INTO AFFECTED EYE OPHTHALMIC BEFORE BEDTIME TAKING TIMOLOL MALEATE 0.25 % SOLUTION 1 DROP INTO AFFECTED EYE OPHTHALMIC ONCE A DAY TAKING ROPINIROLE HCL 0.5 MG TABLET 1 TABLET 1 TO 3 HOURS BEFORE BEDTIME ORALLY ONCE A DAY TAKING TRAMADOL HCL 50 MG TABLET 1 TABLET NEEDED ORALLY EVERY 6 HRS TAKING OMEPRAZOLE 20 MG CAPSULE DELAYED RELEASE 1 CAPSULE ORALLY ONCE A DAY TAKING OLODATEROL HCL 2.5 MCG/ACT AEROSOL SOLUTION 2 PUFFS INHALATION ONCE A DAY TAKING EZETIMIBE 10 MG TABLET 1 TABLET ORALLY ONCE A DAY NOT-TAKING MAY HAVE CBD OIL ORALLY BID NOT-TAKING ALBUTEROL SULFATE HFA 108 (90 BASE) MCG/ACT AEROSOL SOLUTION 2 PUFFS NEEDED INHALATION EVERY 6 HRS NOT-TAKING ATORVASTATIN CALCIUM 10 MG TABLET 1 TABLET ORALLY ONCE A DAY NOT-TAKING ASPIRIN 81 MG TABLET CHEWABLE 1 TABLET ORALLY ONCE A DAY NOT-TAKING CALTRATE 600+D 600-800 MG-UNIT TABLET 1 TABLET WITH A MEAL ORALLY ONCE A DAY MEDICATION LIST REVIEWED AND RECONCILED WITH THE PATIENT PAST MEDICAL HISTORY GLAUCOMA LOW BACK PAIN ALLERGIC RHINITIS HYPERLIPIDEMIA DYSPEPSIA, DYSPHAGIA OSTEOPENIA CHOLELITHIASIS HEMORRHOIDS RECTAL MASS RESTLESS LEGS BREAST CANCER COPD ALLERGIES PENICILLIN (FOR ALLERGIES USE ONLY): JOINT PAIN - SIDE EFFECTS SURGICAL HISTORY LEFT KNEE REPLACEMENT TONSILLECTOMY BILAT MASTECTOMY RIGHT SUBCLAVIAN PORT PLACED AND REMOVED CHOLECYSTECTOMY REPAIR OF FISSURE 07/2019 FAMILY HISTORY FATHER: , NON KNOWN HISTORY MOTHER: 89 YRS 2 BROTHER(S) , 1 SISTER(S) - HEALTHY. MOTHER-ALZHEIMERS NEPHEW DIAGNOSED WITH THROAT CANCER. SOCIAL HISTORY GENERAL: TOBACCO USE ARE YOU A:FORMER SMOKER OTHERS AT HOME: OTHER NON-RELATIVE. EDUCATION LEVEL OF EDUCATION:FINISHED [employer] DEGREE DIET: REGULAR. LANGUAGE LANGUAGES SPOKEN:MACEDONIAN DOMESTIC VIOLENCE DO YOU FEEL SAFE IN YOUR ENVIRONMENT?YES RECREATIONAL DRUG USE DRUG USE?NO EXERCISE: NONE. 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 NEEDED?NO PAIN CLINIC PFS, CLERGY, PUBLIC HEALTH REFERRALS HAS THE PATIENT BEEN EDUCATED REGARDING HIS/HER PLAN OF CARE?YES HAS THE PATIENT BEEN EDUCATED REGARDING PAIN, THE RISK FOR PAIN, THE IMPORTANCE OF EFFECTIVE PAIN MANAGEMENT, AND THE PAIN ASSESSMENT PROCESS?YES LATEX QUESTIONNAIRE LATEX ALLERGY : HAVE YOU EVER DEVELOPED ANY TYPE OF REACTION AFTER HANDLING LATEX PRODUCTS SUCH RUBBER GLOVES, CONDOMS, DIAPHRAGMS, BALLOONS, SOCKS, OR UNDERWEAR?NO LATEX ALLERGY : HAVE YOU EVER DEVELOPED ANY TYPE OF REACTION DURING OR AFTER DENTAL APPOINTMENT, VAGINAL/RECTAL EXAMINATION, SURGICAL PROCEDURE, OR ANY OTHER EXPOSURE?NO DATE ASKED : 06/26/2019 LATEX RISK : HAVE YOU EVER HAD ANY DIFFICULTY BREATHING OR HIVES AFTER EATING OR HANDLING ANY FRUITS, OR VEGETABLES; SUCH KIWI, BANANAS, STONE FRUITS, OR CHESTNUTSNO LATEX RISK : DO YOU HAVE A PREVIOUS PERSONAL HISTORY OF MORE THAN NINE SURGERIES, SPINA BIFIDA, OR REPEATED CATHERIZATIONS? NO LATEX RISK : ARE YOU FREQUENTLY EXPOSED TO LATEX PRODUCTS IN YOUR OCCUPATION?NO ADVANCE DIRECTIVE ADVANCE DIRECTIVE DISCUSSED WITH PATIENT:YES HCP ON FILE @[facility] EDarryn GUTIERREZ [phone] & ELBA LAROSE (SISTER) [phone] (HOME), (CELL) JEW [id number] OTHER MARITAL STATUS: SINGLE. ALCOHOL SCREENING DID YOU HAVE A DRINK CONTAINING ALCOHOL IN THE PAST YEAR?NO POINTS0 INTERPRETATIONNEGATIVE OCCUPATION: RETIRED FROM [employer] WORKING WITH MENTALLY DISABLED. REVIEWED NL 10/14/18REVIEWED WITH PT 01/23/19 1115 [id number] REVIEWED WITH PT. MARIOIEWED WITH PATIENT 05/06/19 1128 JS06/26/19 REVIEWED WITH PT. MARYWED WITH PT 08/11/19 1053 NLJ. HOSPITALIZATION/MAJOR DIAGNOSTIC PROCEDURE SURGERIES REVIEW OF SYSTEMS REVIEWED BY: PROVIDER: SHASHI ALEJANDRA . CONSTITUTIONAL: ANY CHANGE IN YOUR MEDICAL CONDITION? NO . CHILLS NO . FEVER NO . INFECTION: DO YOU HAVE NEW INFECTIONS? NO . DO YOU HAVE HISTORY OF MRSA? NO . MUSCULOSKELETAL: ANY NEW PATTERNS OF PAIN OR NUMBNESS? NO- STATES BILATERAL SIJ- STATES THAT SHE HAS A LEVEL 0/10 PAIN, STATES IF SHE HAS ANY PAIN IT IS AT NIGHT BUT IT IS VERY MINIMAL . GASTROENTEROLOGY: ANY NEW CHANGE IN BOWEL CONTROL? NO . GENITOURINARY: ANY NEW CHANGE IN BLADDER CONTROL? NO . IS THERE A CHANCE YOU COULD BE ? NO . HEMATOLOGY/LYMPH: DO YOU TAKE ANY BLOOD THINNERS? (FOR EXAMPLE- COUMADIN, PLAVIX, AGGRENOX, PLATEL, PRADAXA, OR XARELTO) NO . WHEN WAS YOUR LAST DOSE? DATE: TIME: . NEUROLOGY: HAVE YOU FALLEN IN THE PAST 12 MONTHS? NO . ANY NEW EXTREMITY NUMBNESS OR WEAKNESS? NO . CARDIOLOGY: DO YOU HAVE A PACEMAKER OR DEFIBRILLATOR? NO . RESPIRATORY: HAVE YOU BEEN SICK IN THE PAST WEEK? YES- STATES SHE HAS A COLD RECENTLY . FEVER NO . FLU LIKE SYMPTOMS? NO . COUGH NO . INTEGUMENTARY: DO YOU HAVE ANY RASHES OR OPEN SORES? NO . ALLERGIC/IMMUNO: ARE YOU ALLERGIC TO IV DYE? NO . ANY NEW ALLERGIES? NO . PSYCHIATRIC: DO YOU HAVE THOUGHTS OF HURTING YOURSELF OR SOMEONE ELSE? NO . ARE YOU ABUSED, NEGLECTED, OR IN AN UNSAFE ENVIRONMENT? NO . ENDOCRINOLOGY: ARE YOU DIABETIC? NO . OTHER: DO YOU NEED ANY PRESCRIPTIONS? NO . IF YES, PLEASE LIST: ____ . ANY NEW PROBLEMS WITH YOUR MEDICATIONS? NO . WHEN DID YOU LAST EAT? ____ . WHEN DID YOU LAST DRINK? ____ . WHAT DID YOU LAST DRINK? ____ . NAME OF PERSON DRIVING YOU HOME? ____ . DO YOU HAVE ANY OTHER QUESTIONS OR CONCERNS NO- STATES THE SIJ WORKED GREAT AND SHE HAS A LEVEL 0/10 PAIN . VITAL SIGNS WT 219.8 LBS, HT 69 IN, BMI 32.46 INDEX, BP 117/70 MM HG, HR 75 /MIN, RR 18 /MIN, TEMP 96.1 F, OXYGEN SAT % 96%, SAFE IN ENV? (Y/N) YES, NA INITIALS SC 10:56, REVIEWED BY: GABRIELA. EXAMINATION GENERAL EXAMINATION: GENERALAWAKE,ALERT ,PLEAASANT . PSYCHAFFECT NORMAL . LUNGS:LUNG NAIR ARE CLEAR TO AUSCULTATION BILATERALLY. GOOD MOVEMENT OF AIR . HEART:S1, S2 IN A REGULAR RATE AND RHYTHM. NO SIGNIFICANT MURMURS, RUBS OR GALLOPS NOTED . ASSESSMENTS SACROILIITIS, NOT ELSEWHERE CLASSIFIED - M46.1 (PRIMARY) TREATMENT SACROILIITIS, NOT ELSEWHERE CLASSIFIED NOTES: CONTINUE HOME EXCERSISE. PROCEDURE CODES FA211 ESTABILISHED PATIENT [facility] CHARGE DISPOSITION & COMMUNICATION FOLLOW UP 2 MONTHS ELECTRONICALLY SIGNED BY JUSTYN BOTELLO ON 08/11/2019 AT 01:50 PM EDT DISCLAIMER : THIS IS A VISIT SUMMARY EXTRACTED FROM THE [employer] CHART. IT IS NOT A COPY OF THE [employer] PROGRESS NOTE. JORDYN
== END ==
LOC: M PAIN 10:15
PROVIDERS: ATTEND Nurse Practitioner Family
DX: M46.1 Sacroiliitis, not elsewhere classified (principal); G89.29 Other chronic pain; E78.5 Hyperlipidemia, unspecified; M81.0 Age-related osteoporosis without current pathological fracture; G25.81 Restless legs syndrome; J44.9 Chronic obstructive pulmonary disease, unspecified; Z96.652 Presence of left artificial knee joint; Z87.891 Personal history of nicotine dependence; Z88.0 Allergy status to penicillin; Z79.899 Other long term (current) drug therapy

== ENCOUNTER → 2019-10-10 | Outpatient (CLI) | payer OTHER ==
--- NOTE | 2019-10-11 06:21 | ECWPNPC ---
PATIENT NAME: CYNTHIA LAROSE : 1950 GENDER: FEMALE VISIT DATE: 10/10/2019 DISCHARGE DATE: 10/10/19 1134 VISIT LOCKED DATE TIME: PHYSICIAN: SHASHI NGUYEN RESOURCE: SHASHI NGUYEN REASON FOR APPOINTMENT 1. [facility]-LOW BACK HISTORY OF PRESENT ILLNESS HISTORY OF PRESENT ILLNESS: HERE FOR F/U OF CHRONIC LBP.PAIN HAS ESCALATED OVER THE PAST MONTH.HAS RESPONDED WELL TO BILAT. SIJ IN PAST.RATING PAIN VAS 4-7/10. PAIN THE PATIENT DESCRIBES THE PAIN... THE PATIENT DESCRIBES THE PAIN... FALL RISK SCREENING: SCREENING :NO FALLS REPORTED IN THE LAST YEAR CURRENT MEDICATIONS TAKING LATANOPROST 0.005 % SOLUTION 1 DROP INTO AFFECTED EYE IN THE EVENING OPHTHALMIC ONCE A DAY TAKING CYCLOSPORINE 0.1 % EMULSION 1 DROP INTO AFFECTED EYE OPHTHALMIC BEFORE BEDTIME TAKING TIMOLOL MALEATE 0.25 % SOLUTION 1 DROP INTO AFFECTED EYE OPHTHALMIC ONCE A DAY TAKING ROPINIROLE HCL 0.5 MG TABLET 1 TABLET 1 TO 3 HOURS BEFORE BEDTIME ORALLY ONCE A DAY TAKING TRAMADOL HCL 50 MG TABLET 1 TABLET NEEDED ORALLY EVERY 6 HRS TAKING OMEPRAZOLE 20 MG CAPSULE DELAYED RELEASE 1 CAPSULE ORALLY ONCE A DAY TAKING OLODATEROL HCL 2.5 MCG/ACT AEROSOL SOLUTION 2 PUFFS INHALATION ONCE A DAY TAKING EZETIMIBE 10 MG TABLET 1 TABLET ORALLY ONCE A DAY NOT-TAKING MAY HAVE CBD OIL ORALLY BID NOT-TAKING ALBUTEROL SULFATE HFA 108 (90 BASE) MCG/ACT AEROSOL SOLUTION 2 PUFFS NEEDED INHALATION EVERY 6 HRS NOT-TAKING ATORVASTATIN CALCIUM 10 MG TABLET 1 TABLET ORALLY ONCE A DAY NOT-TAKING ASPIRIN 81 MG TABLET CHEWABLE 1 TABLET ORALLY ONCE A DAY NOT-TAKING CALTRATE 600+D 600-800 MG-UNIT TABLET 1 TABLET WITH A MEAL ORALLY ONCE A DAY MEDICATION LIST REVIEWED AND RECONCILED WITH THE PATIENT PAST MEDICAL HISTORY GLAUCOMA LOW BACK PAIN ALLERGIC RHINITIS HYPERLIPIDEMIA DYSPEPSIA, DYSPHAGIA OSTEOPENIA CHOLELITHIASIS HEMORRHOIDS RECTAL MASS RESTLESS LEGS BREAST CANCER COPD ALLERGIES PENICILLIN (FOR ALLERGIES USE ONLY): JOINT PAIN - SIDE EFFECTS SURGICAL HISTORY LEFT KNEE REPLACEMENT TONSILLECTOMY BILAT MASTECTOMY RIGHT SUBCLAVIAN PORT PLACED AND REMOVED CHOLECYSTECTOMY REPAIR OF FISSURE 07/2019 FISTULA REPAIR 08/2019 FAMILY HISTORY FATHER: , NON KNOWN HISTORY MOTHER: 89 YRS 2 BROTHER(S) , 1 SISTER(S) - HEALTHY. MOTHER-ALZHEIMERS NEPHEW DIAGNOSED WITH THROAT CANCER. SOCIAL HISTORY GENERAL: TOBACCO USE ARE YOU A:FORMER SMOKER OTHERS AT HOME: OTHER NON-RELATIVE. EDUCATION LEVEL OF EDUCATION:FINISHED [employer] DEGREE DIET: REGULAR. LANGUAGE LANGUAGES SPOKEN:SAMI DOMESTIC VIOLENCE DO YOU FEEL SAFE IN YOUR ENVIRONMENT?YES RECREATIONAL DRUG USE DRUG USE?NO EXERCISE: NONE. 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 NEEDED?NO PAIN CLINIC PFS, CLERGY, PUBLIC HEALTH REFERRALS HAS THE PATIENT BEEN EDUCATED REGARDING HIS/HER PLAN OF CARE?YES HAS THE PATIENT BEEN EDUCATED REGARDING PAIN, THE RISK FOR PAIN, THE IMPORTANCE OF EFFECTIVE PAIN MANAGEMENT, AND THE PAIN ASSESSMENT PROCESS?YES LATEX QUESTIONNAIRE LATEX ALLERGY : HAVE YOU EVER DEVELOPED ANY TYPE OF REACTION AFTER HANDLING LATEX PRODUCTS SUCH RUBBER GLOVES, CONDOMS, DIAPHRAGMS, BALLOONS, SOCKS, OR UNDERWEAR?NO LATEX ALLERGY : HAVE YOU EVER DEVELOPED ANY TYPE OF REACTION DURING OR AFTER DENTAL APPOINTMENT, VAGINAL/RECTAL EXAMINATION, SURGICAL PROCEDURE, OR ANY OTHER EXPOSURE?NO LATEX RISK : HAVE YOU EVER HAD ANY DIFFICULTY BREATHING OR HIVES AFTER EATING OR HANDLING ANY FRUITS, OR VEGETABLES; SUCH KIWI, BANANAS, STONE FRUITS, OR CHESTNUTSNO LATEX RISK : DO YOU HAVE A PREVIOUS PERSONAL HISTORY OF MORE THAN NINE SURGERIES, SPINA BIFIDA, OR REPEATED CATHERIZATIONS? NO LATEX RISK : ARE YOU FREQUENTLY EXPOSED TO LATEX PRODUCTS IN YOUR OCCUPATION?NO DATE ASKED : 06/26/2019 ADVANCE DIRECTIVE ADVANCE DIRECTIVE DISCUSSED WITH PATIENT:YES HCP ON FILE @[facility] EDarryn AL GUTIERREZ [phone] & ELBA LAROSE (SISTER) [phone] (HOME), (CELL) CONGREGATIONAL [id number] OTHER MARITAL STATUS: SINGLE. ALCOHOL SCREENING DID YOU HAVE A DRINK CONTAINING ALCOHOL IN THE PAST YEAR?NO POINTS0 INTERPRETATIONNEGATIVE OCCUPATION: RETIRED FROM [employer] WORKING WITH MENTALLY DISABLED. REVIEWED NL 10/14/18REVIEWED WITH PT 01/23/19 1115 [id number] REVIEWED WITH PT. ADREVIEWED WITH PATIENT 05/06/19 1128 JS06/26/19 REVIEWED WITH PT. ADREVIEWED WITH PT 08/11/19 1053 NLJREVIEWED WITH PATIENT 10/10/19 1100 JS. HOSPITALIZATION/MAJOR DIAGNOSTIC PROCEDURE SURGERIES REVIEW OF SYSTEMS REVIEWED BY: PROVIDER: SHASHI ALJEANDRA . CONSTITUTIONAL: ANY CHANGE IN YOUR MEDICAL CONDITION? NO . CHILLS NO . FEVER NO . INFECTION: DO YOU HAVE NEW INFECTIONS? NO . DO YOU HAVE HISTORY OF MRSA? NO . MUSCULOSKELETAL: ANY NEW PATTERNS OF PAIN OR NUMBNESS? YES, STATES PAIN HAS INCREASED AND IS GOING DOWN THE FRONT OF BILATERAL LEGS, RIGHT>LEFT - STATES BEEN GOING ON FOR AT LEAST A MONTH . GASTROENTEROLOGY: ANY NEW CHANGE IN BOWEL CONTROL? NO . GENITOURINARY: ANY NEW CHANGE IN BLADDER CONTROL? NO . IS THERE A CHANCE YOU COULD BE ? NO . HEMATOLOGY/LYMPH: DO YOU TAKE ANY BLOOD THINNERS? (FOR EXAMPLE- COUMADIN, PLAVIX, AGGRENOX, PLATEL, PRADAXA, OR XARELTO) NO . WHEN WAS YOUR LAST DOSE? DATE: TIME: . NEUROLOGY: HAVE YOU FALLEN IN THE PAST 12 MONTHS? NO . ANY NEW EXTREMITY NUMBNESS OR WEAKNESS? YES, STATES NUMBNESS AND WEAKNESS TO BILATERAL LEGS - MAKES HER LEGS VERY WOBBLY, ESPECIALLY AT NIGHT TIME . CARDIOLOGY: DO YOU HAVE A PACEMAKER OR DEFIBRILLATOR? NO . RESPIRATORY: HAVE YOU BEEN SICK IN THE PAST WEEK? NO . FEVER NO . FLU LIKE SYMPTOMS? NO . COUGH NO . INTEGUMENTARY: DO YOU HAVE ANY RASHES OR OPEN SORES? NO . ALLERGIC/IMMUNO: ARE YOU ALLERGIC TO IV DYE? NO . ANY NEW ALLERGIES? NO . PSYCHIATRIC: DO YOU HAVE THOUGHTS OF HURTING YOURSELF OR SOMEONE ELSE? NO . ARE YOU ABUSED, NEGLECTED, OR IN AN UNSAFE ENVIRONMENT? NO . ENDOCRINOLOGY: ARE YOU DIABETIC? NO . OTHER: DO YOU NEED ANY PRESCRIPTIONS? NO . IF YES, PLEASE LIST: ____ . ANY NEW PROBLEMS WITH YOUR MEDICATIONS? NO . WHEN DID YOU LAST EAT? ____ . WHEN DID YOU LAST DRINK? ____ . WHAT DID YOU LAST DRINK? ____ . NAME OF PERSON DRIVING YOU HOME? ____ . DO YOU HAVE ANY OTHER QUESTIONS OR CONCERNS FLU VACCINE END OF , SHINGLES VACCINE IN AUGUST . VITAL SIGNS WT 222.2 LBS, HT 69 IN, BMI 32.81 INDEX, BP 138/80 MM HG, HR 79 /MIN, RR 18 /MIN, TEMP 96.0 F, OXYGEN SAT % 95%, SAFE IN ENV? (Y/N) YES, NA INITIALS SC 10:56, REVIEWED BY: DARVIN. EXAMINATION GENERAL EXAMINATION: GENERAL AWAKE,ALERT ,PLEAASANT . PSYCH AFFECT NORMAL . NECK:TRACHEA MIDLINE. NO CERVICAL OR SUPRACLAVICULAR LYMPHADENOPATHY NOTED. LUNGS: LUNG NAIR ARE CLEAR TO AUSCULTATION BILATERALLY. GOOD MOVEMENT OF AIR . HEART: S1, S2 IN A REGULAR RATE AND RHYTHM. NO SIGNIFICANT MURMURS, RUBS OR GALLOPS NOTED . MUSCULOSKELETAL:MUSCLE STRENGTH TESTING 5/5 BILATERAL LOWER EXTREMITIES , PALPATION: POSITIVE FOR PAIN OVER L/S SPINE. POSITIVE FOR PAIN OVER L/S PARSPINALS SPECIFIC POINT TENDERNESS OVER BILATERAL SIJ. NEUROLOGIC EXAM:NORMAL SENSATION TO LIGHT TOUCH LOWER EXTREMITIES. DIAGNOSTIC:MRI L/S 02-28-18-REVIEWED. ASSESSMENTS SACROILIITIS, NOT ELSEWHERE CLASSIFIED - M46.1 (PRIMARY) TREATMENT SACROILIITIS, NOT ELSEWHERE CLASSIFIED NOTES: BILAT SIJ. PREVENTIVE MEDICINE PAIN CLINIC TEACHING: PROCEDURE TEACHING REVIEWED INFORMATION ON SACROILIAC JOINT INJECTION PROCEDURE WITH PATIENT. ALSO REVIEWED PRE-PROCEDURE INSTRUCTIONS. PATIENT VERBALIZED AN UNDERSTANDING. FABIEN ROSENBERG 10/10/2019 11:32:43 AM > . PROCEDURE CODES FA211 ESTABILISHED PATIENT [facility] FACILITY CHARGE DISPOSITION & COMMUNICATION FOLLOW UP POST (REASON: BILAT SIJ) ELECTRONICALLY SIGNED BY JUSTYN BOTELLO ON 10/10/2019 AT 12:30 PM EST DISCLAIMER : THIS IS A VISIT SUMMARY EXTRACTED FROM THE [employer] CHART. IT IS NOT A COPY OF THE [employer] PROGRESS NOTE. JORDYN
== END ==
LOC: M PAIN 10:30
PROVIDERS: ATTEND Nurse Practitioner Family
DX: M46.1 Sacroiliitis, not elsewhere classified (principal)

== ENCOUNTER → 2019-12-02 | Outpatient (CLI) | payer OTHER ==
[~2019-12-02] MED LIST changes: -ISOVUE-M 200 41% 20ML VIAL (Q9966) As Ordered ONE; +ISOVUE-M 300 61% 15ML VIAL (Q9967) As Ordered ONE; -diazePAM 5 MG TAB As Ordered ONE
--- NOTE | 2019-12-02 17:36 | REP ---
SI joint series: Five views. History: Bilateral SI joint injection for pain. Findings: A sequence of five last image hold fluoroscopically obtained spot radiographs of the SI joints document various needle positions associated with injection procedure. 30 seconds of fluoroscopy time is reported. Electronically Signed by Jasmeet Johnson MD 12/02/2019 05:28 P
--- NOTE | 2019-12-12 04:02 | ECWPNPC ---
PATIENT NAME: CYNTHIA LAROSE : 1950 GENDER: FEMALE VISIT DATE: 12/02/2019 DISCHARGE DATE: 12/02/19 1110 VISIT LOCKED DATE TIME: PHYSICIAN: DIANA BOOKER MD RESOURCE: DIANA BOOKER MD REASON FOR APPOINTMENT 1. CHAD SCANLON HISTORY OF PRESENT ILLNESS HISTORY OF PRESENT ILLNESS: PAIN THE PATIENT DESCRIBES THE PAIN... FALL RISK SCREENING: SCREENING :NO FALLS REPORTED IN THE LAST YEAR CURRENT MEDICATIONS TAKING LATANOPROST 0.005 % SOLUTION 1 DROP INTO AFFECTED EYE IN THE EVENING OPHTHALMIC ONCE A DAY, NOTES: 12/01/19 PM TAKING CYCLOSPORINE 0.1 % EMULSION 1 DROP INTO AFFECTED EYE OPHTHALMIC BEFORE BEDTIME, NOTES: 12/01/19 PM TAKING TIMOLOL MALEATE 0.25 % SOLUTION 1 DROP INTO AFFECTED EYE OPHTHALMIC ONCE A DAY, NOTES: 12/02/19 AM TAKING ROPINIROLE HCL 0.5 MG TABLET 1 TABLET 1 TO 3 HOURS BEFORE BEDTIME ORALLY ONCE A DAY, NOTES: 12/01/19 2000 TAKING TRAMADOL HCL 50 MG TABLET 1 TABLET NEEDED ORALLY EVERY 6 HRS, NOTES: 12/02/19 0700 TAKING OMEPRAZOLE 20 MG CAPSULE DELAYED RELEASE 1 CAPSULE ORALLY ONCE A DAY, NOTES: 12/02/19 0700 TAKING OLODATEROL HCL 2.5 MCG/ACT AEROSOL SOLUTION 2 PUFFS INHALATION ONCE A DAY, NOTES: 12/01/19 TAKING EZETIMIBE 10 MG TABLET 1 TABLET ORALLY ONCE A DAY, NOTES: 12/01/19 PM TAKING ACETAMINOPHEN 500 MG TABLET 2 TABLETS ORALLY EVERY 6 HOURS NEEDED (MDD 3000 MG), NOTES: 12/02/19 0700 TAKING CALTRATE 600 1500 (600 CA) MG TABLET DIRECTED ORALLY , NOTES: 12/02/19 0700 NOT-TAKING MAY HAVE CBD OIL ORALLY BID NOT-TAKING ALBUTEROL SULFATE HFA 108 (90 BASE) MCG/ACT AEROSOL SOLUTION 2 PUFFS NEEDED INHALATION EVERY 6 HRS NOT-TAKING ATORVASTATIN CALCIUM 10 MG TABLET 1 TABLET ORALLY ONCE A DAY NOT-TAKING ASPIRIN 81 MG TABLET CHEWABLE 1 TABLET ORALLY ONCE A DAY NOT-TAKING CALTRATE 600+D 600-800 MG-UNIT TABLET 1 TABLET WITH A MEAL ORALLY ONCE A DAY MEDICATION LIST REVIEWED AND RECONCILED WITH THE PATIENT PAST MEDICAL HISTORY GLAUCOMA LOW BACK PAIN ALLERGIC RHINITIS HYPERLIPIDEMIA DYSPEPSIA, DYSPHAGIA OSTEOPENIA CHOLELITHIASIS HEMORRHOIDS RECTAL MASS RESTLESS LEGS BREAST CANCER COPD ALLERGIES PENICILLIN (FOR ALLERGIES USE ONLY): JOINT PAIN - SIDE EFFECTS SURGICAL HISTORY LEFT KNEE REPLACEMENT TONSILLECTOMY BILAT MASTECTOMY RIGHT SUBCLAVIAN PORT PLACED AND REMOVED CHOLECYSTECTOMY REPAIR OF FISSURE 07/2019 FISTULA REPAIR 08/2019 FAMILY HISTORY FATHER: , NON KNOWN HISTORY MOTHER: 89 YRS 2 BROTHER(S) , 1 SISTER(S) - HEALTHY. MOTHER-ALZHEIMERS NEPHEW DIAGNOSED WITH THROAT CANCER. SOCIAL HISTORY GENERAL: TOBACCO USE ARE YOU A:FORMER SMOKER OTHERS AT HOME: OTHER NON-RELATIVE. EDUCATION LEVEL OF EDUCATION:FINISHED [employer] DEGREE DIET: REGULAR. LANGUAGE LANGUAGES SPOKEN:KENYAN DOMESTIC VIOLENCE DO YOU FEEL SAFE IN YOUR ENVIRONMENT?YES RECREATIONAL DRUG USE DRUG USE?NO EXERCISE: NONE. 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 PAIN CLINIC PFS, CLERGY, PUBLIC HEALTH REFERRALS HAS THE PATIENT BEEN EDUCATED REGARDING HIS/HER PLAN OF CARE?YES HAS THE PATIENT BEEN EDUCATED REGARDING PAIN, THE RISK FOR PAIN, THE IMPORTANCE OF EFFECTIVE PAIN MANAGEMENT, AND THE PAIN ASSESSMENT PROCESS?YES LATEX QUESTIONNAIRE LATEX ALLERGY : HAVE YOU EVER DEVELOPED ANY TYPE OF REACTION AFTER HANDLING LATEX PRODUCTS SUCH RUBBER GLOVES, CONDOMS, DIAPHRAGMS, BALLOONS, SOCKS, OR UNDERWEAR?NO LATEX ALLERGY : HAVE YOU EVER DEVELOPED ANY TYPE OF REACTION DURING OR AFTER DENTAL APPOINTMENT, VAGINAL/RECTAL EXAMINATION, SURGICAL PROCEDURE, OR ANY OTHER EXPOSURE?NO DATE ASKED : 06/26/2019 LATEX RISK : HAVE YOU EVER HAD ANY DIFFICULTY BREATHING OR HIVES AFTER EATING OR HANDLING ANY FRUITS, OR VEGETABLES; SUCH KIWI, BANANAS, STONE FRUITS, OR CHESTNUTSNO LATEX RISK : DO YOU HAVE A PREVIOUS PERSONAL HISTORY OF MORE THAN NINE SURGERIES, SPINA BIFIDA, OR REPEATED CATHERIZATIONS? NO LATEX RISK : ARE YOU FREQUENTLY EXPOSED TO LATEX PRODUCTS IN YOUR OCCUPATION?NO ADVANCE DIRECTIVE ADVANCE DIRECTIVE DISCUSSED WITH PATIENT:YES HCP ON FILE @[facility] EDarryn GUTIERREZ [phone] & ELBA LAROSE (SISTER) [phone] (HOME), (CELL) SCIENTOLOGY [id number] OTHER MARITAL STATUS: SINGLE. ALCOHOL SCREENING DID YOU HAVE A DRINK CONTAINING ALCOHOL IN THE PAST YEAR?NO POINTS0 INTERPRETATIONNEGATIVE OCCUPATION: RETIRED FROM [employer] WORKING WITH MENTALLY DISABLED. REVIEWED NL 10/14/18REVIEWED WITH PT 01/23/19 1115 [id number] REVIEWED WITH PT. ADREVIEWED WITH PATIENT 05/06/19 1128 JS06/26/19 REVIEWED WITH PT. ADPRE PROCEDURE REVIEW FOR 12-02-19 KEG REVIEWED WITH PT 08/11/19 1053 NLJREVIEWED WITH PATIENT 10/10/19 1100 JSREVIEWED WITH PATIENT 12/02/19 0930 BV. HOSPITALIZATION/MAJOR DIAGNOSTIC PROCEDURE SURGERIES REVIEW OF SYSTEMS REVIEWED BY: PROVIDER: . CONSTITUTIONAL: ANY CHANGE IN YOUR MEDICAL CONDITION? NO . CHILLS NO . FEVER NO . INFECTION: DO YOU HAVE NEW INFECTIONS? NO . DO YOU HAVE HISTORY OF MRSA? NO . MUSCULOSKELETAL: ANY NEW PATTERNS OF PAIN OR NUMBNESS? NO . GASTROENTEROLOGY: ANY NEW CHANGE IN BOWEL CONTROL? NO . GENITOURINARY: ANY NEW CHANGE IN BLADDER CONTROL? NO . IS THERE A CHANCE YOU COULD BE ? NO . HEMATOLOGY/LYMPH: DO YOU TAKE ANY BLOOD THINNERS? (FOR EXAMPLE- COUMADIN, PLAVIX, AGGRENOX, PLATEL, PRADAXA, OR XARELTO) NO . WHEN WAS YOUR LAST DOSE? DATE: TIME: . NEUROLOGY: HAVE YOU FALLEN IN THE PAST 12 MONTHS? YES, PT REPORTS A FEW FALLS IN THE PAST YEAR, STATES HER LAST FALL WAS ABOUT 3 WEEKS AGO WHEN SHE SLIPPED ON ICE. DENIES ANY INJURIES OR ED VISITS WITH ANY OF THE FALLS. . ANY NEW EXTREMITY NUMBNESS OR WEAKNESS? YES, PT REPORTS INCREASING WEAKNESS IN RIGHT KNEE. STATES SHE IS HAVING THIS LOOKED AT BY HER ORTHO DOCTOR. . CARDIOLOGY: DO YOU HAVE A PACEMAKER OR DEFIBRILLATOR? NO . RESPIRATORY: HAVE YOU BEEN SICK IN THE PAST WEEK? NO . FEVER NO . FLU LIKE SYMPTOMS? NO . COUGH NO . INTEGUMENTARY: DO YOU HAVE ANY RASHES OR OPEN SORES? NO . ALLERGIC/IMMUNO: ARE YOU ALLERGIC TO IV DYE? NO . ANY NEW ALLERGIES? NO . PSYCHIATRIC: DO YOU HAVE THOUGHTS OF HURTING YOURSELF OR SOMEONE ELSE? NO . ARE YOU ABUSED, NEGLECTED, OR IN AN UNSAFE ENVIRONMENT? NO . ENDOCRINOLOGY: ARE YOU DIABETIC? NO . OTHER: DO YOU NEED ANY PRESCRIPTIONS? NO . IF YES, PLEASE LIST: ____ . ANY NEW PROBLEMS WITH YOUR MEDICATIONS? NO . WHEN DID YOU LAST EAT? 12/01/191999 . WHEN DID YOU LAST DRINK? 12/02/19 0700 . WHAT DID YOU LAST DRINK? WATER . NAME OF PERSON DRIVING YOU HOME? JESSICA PARR . DO YOU HAVE ANY OTHER QUESTIONS OR CONCERNS NO . VITAL SIGNS WT 220.2 LBS, HT 69 IN, BMI 32.51 INDEX, BP 120/68 MM HG, HR 77 /MIN, RR 18 /MIN, TEMP 97.6 F, OXYGEN SAT % 94%, NA INITIALS AW 0923, REVIEWED BY: BV. ASSESSMENTS SACROILIITIS, NOT ELSEWHERE CLASSIFIED - M46.1 (PRIMARY) TREATMENT SACROILIITIS, NOT ELSEWHERE CLASSIFIED [facility] FLUORO GUIDANCE (PAIN)[id number] PROCEDURES PN SI PRE PROCEDURE DIAGNOSIS SACROILIITIS, SACROILIAC JOINT DYSFUNCTION POST PROCEDURE DIAGNOSIS SACROILIITIS, SACROILIAC JOINT DYSFUNCTION PROCEDURE BILATERAL SACROILIAC JOINT BLOCK SURGEON DR. DIANA BOOKER TYPEWRITER MECHANIC NONE ANESTHESIA LOCAL PRE PROCEDURE NOTE PATIENT WITH HISTORY OF CHRONIC LOW BACK PAIN. I EVALUATED THE PATIENT AND REVIEWED THE CHART. I WENT OVER THE RISKS, ALTERNATIVES, AND BENEFITS ASSOCIATED WITH THIS PROCEDURE. THE PATIENT WOULD LIKE TO PROCEED AND GAVE CONSENT TO PERFORM THE PROCEDURE. THE PATIENT DENIES UNEXPLAINABLE WEIGHT LOSS, FEVER, CHILLS, OR NEW CHANGES IN URINARY OR BOWEL CONTROL DESCRIPTION OF PROCEDURE THE PATIENT WAS BROUGHT TO THE PROCEDURE ROOM AND PLACED IN THE PRONE POSITION. THE LUMBOSACRAL AREA WAS CLEANED WITH CHLORAPREP SOLUTION AND DRAPED ASEPTICALLY. THE PROCEDURE WAS DONE UNDER STERILE CONDITIONS. I CHECKED LATERALITY AND THE LEVEL WHERE THE PROCEDURE WAS GOING TO BE PERFORMED WITH THE PATIENT AND THE SUPPORTING STAFF AT THE MOMENT OF THE TIME OUT IN THE PROCEDURE ROOM. UNDER FLUOROSCOPIC GUIDANCE, TARGET POINT WAS SELECTED AT THE LOWER BORDER OF THE RIGHT AND LEFT SACROILIAC JOINTS. TARGET POINT WAS SELECTED AFTER MEDIAL ROTATION AND TILT OF THE MAGNIFIER OF THE C-ARM. LIDOCAINE WAS USED TO NUMB THE SKIN AND SUBCUTANEOUS TISSUE BELOW IT. A SPINAL NEEDLE, 22-GAUGE, WAS ADVANCED UNDER FLUOROSCOPIC GUIDANCE AND FOLLOWING PATIENT FEEDBACK UNTIL THE TARGET AREA WAS TOUCHED. THE POSITION OF THE NEEDLE WAS VERIFIED WITH AP AND LATERAL VIEWS. AFTER PROPER POSITION OF THE NEEDLE WAS ACHIEVED, ISOVUE M DYE 30%, 0.25 ML, WAS INJECTED SHOWING SPREAD OF THE DYE. THEN, A SOLUTION OF 30 MG OF KENALOG WAS INJECTED IN RIGHT AND LEFT JOINTS WITH 3 ML OF BUPIVACAINE 0.125%. THERE WAS NO EVIDENCE OF BLOOD, PARESTHESIA OR CEREBROSPINAL FLUID DURING THE PROCEDURE. THE PATIENT WAS SENT TO THE RECOVERY ROOM. THE PATIENT WAS MOVING THE EXTREMITIES AND DOING WELL. THERE WAS NO COMPLICATION DURING THE PROCEDURE. FLUOROSCOPY TIME WAS 30 SECONDS POST PROCEDURE NOTE THE PATIENT WILL BE SEEN IN A FOLLOWUP IN THE NEXT FEW WEEKS. I AM LOOKING FOR LONG-LASTING PAIN RELIEF WITH THIS INTERVENTION. INSTRUCTIONS WERE GIVEN, QUESTIONS WERE ANSWERED, AND THE PATIENT EXPRESSED UNDERSTANDING AND AGREED WITH THE PLAN. I, MIRACLE BRITT, DOCUMENTED THE ABOVE INFORMATION ACTING A SCRIBE FOR DR. BOOKER. I HAVE REVIEWED THE ABOVE DOCUMENT, WRITTEN BY SAUMYA SPANN, AND I VERIFY THAT IT IS ACCURATE PROCEDURE CODES 07306 INJECT SACROILIAC JOINT, MODIFIERS: 50 [id number] RADXPS IN END [id number] PXD DISPOSITION & COMMUNICATION FOLLOW UP 3 WEEKS ELECTRONICALLY SIGNED BY DIANA BOOKER MD, MD ON 12/11/2019 AT 10:40 AM EST DISCLAIMER : THIS IS A VISIT SUMMARY EXTRACTED FROM THE [employer] CHART. IT IS NOT A COPY OF THE [employer] PROGRESS NOTE. MTDRickey
== END ==
LOC: M PAIN 09:15
PROVIDERS: ATTEND Anesthesiology
DX: M46.1 Sacroiliitis, not elsewhere classified (principal); E78.5 Hyperlipidemia, unspecified; G25.81 Restless legs syndrome; J44.9 Chronic obstructive pulmonary disease, unspecified; Z96.652 Presence of left artificial knee joint; Z87.891 Personal history of nicotine dependence; Z88.0 Allergy status to penicillin; Z79.899 Other long term (current) drug therapy
CPT/HCPCS: G0260; J3301; Q9967

== ENCOUNTER → 2019-12-18 | Outpatient (CLI) | payer OTHER ==
--- NOTE | 2020-01-06 05:00 | ECWPNPC ---
PATIENT NAME: CYNTHIA LAROSE : 1950 GENDER: FEMALE VISIT DATE: 12/18/2019 DISCHARGE DATE: 12/18/19 1042 VISIT LOCKED DATE TIME: PHYSICIAN: SHASHI NGUYEN RESOURCE: SHASHI NGUYEN REASON FOR APPOINTMENT 1. POST SIJ HISTORY OF PRESENT ILLNESS HISTORY OF PRESENT ILLNESS: HERE FOR F/U OF CHRONIC LBP.HAD BILAT SIJ 12/02/2019 .REPORTING >80% REDUCTION IN PAIN THAT CONTINUES TODAY.RATING PAIN VAS 0-3/10.DOING WELL. PAIN THE PATIENT DESCRIBES THE PAIN... FALL RISK SCREENING: SCREENING :NO FALLS REPORTED IN THE LAST YEAR CURRENT MEDICATIONS TAKING LATANOPROST 0.005 % SOLUTION 1 DROP INTO AFFECTED EYE IN THE EVENING OPHTHALMIC ONCE A DAY TAKING CYCLOSPORINE 0.1 % EMULSION 1 DROP INTO AFFECTED EYE OPHTHALMIC BEFORE BEDTIME TAKING TIMOLOL MALEATE 0.25 % SOLUTION 1 DROP INTO AFFECTED EYE OPHTHALMIC ONCE A DAY TAKING ROPINIROLE HCL 0.5 MG TABLET 1 TABLET 1 TO 3 HOURS BEFORE BEDTIME ORALLY ONCE A DAY TAKING TRAMADOL HCL 50 MG TABLET 1 TABLET NEEDED ORALLY EVERY 6 HRS TAKING OMEPRAZOLE 20 MG CAPSULE DELAYED RELEASE 1 CAPSULE ORALLY ONCE A DAY TAKING OLODATEROL HCL 2.5 MCG/ACT AEROSOL SOLUTION 2 PUFFS INHALATION ONCE A DAY TAKING EZETIMIBE 10 MG TABLET 1 TABLET ORALLY ONCE A DAY TAKING ACETAMINOPHEN 500 MG TABLET 2 TABLETS ORALLY EVERY 6 HOURS NEEDED (MDD 3000 MG) TAKING CALTRATE 600 1500 (600 CA) MG TABLET DIRECTED ORALLY NOT-TAKING MAY HAVE CBD OIL ORALLY BID NOT-TAKING ALBUTEROL SULFATE HFA 108 (90 BASE) MCG/ACT AEROSOL SOLUTION 2 PUFFS NEEDED INHALATION EVERY 6 HRS NOT-TAKING ATORVASTATIN CALCIUM 10 MG TABLET 1 TABLET ORALLY ONCE A DAY NOT-TAKING ASPIRIN 81 MG TABLET CHEWABLE 1 TABLET ORALLY ONCE A DAY NOT-TAKING CALTRATE 600+D 600-800 MG-UNIT TABLET 1 TABLET WITH A MEAL ORALLY ONCE A DAY MEDICATION LIST REVIEWED AND RECONCILED WITH THE PATIENT PAST MEDICAL HISTORY GLAUCOMA LOW BACK PAIN ALLERGIC RHINITIS HYPERLIPIDEMIA DYSPEPSIA, DYSPHAGIA OSTEOPENIA CHOLELITHIASIS HEMORRHOIDS RECTAL MASS RESTLESS LEGS BREAST CANCER COPD ALLERGIES PENICILLIN (FOR ALLERGIES USE ONLY): JOINT PAIN - SIDE EFFECTS SURGICAL HISTORY LEFT KNEE REPLACEMENT TONSILLECTOMY BILAT MASTECTOMY RIGHT SUBCLAVIAN PORT PLACED AND REMOVED CHOLECYSTECTOMY REPAIR OF FISSURE 07/2019 FISTULA REPAIR 08/2019 FAMILY HISTORY FATHER: , NON KNOWN HISTORY MOTHER: 89 YRS 2 BROTHER(S) , 1 SISTER(S) - HEALTHY. MOTHER-ALZHEIMERS NEPHEW DIAGNOSED WITH THROAT CANCER. SOCIAL HISTORY GENERAL: TOBACCO USE ARE YOU A:FORMER SMOKER OTHERS AT HOME: OTHER NON-RELATIVE. EDUCATION LEVEL OF EDUCATION:FINISHED [employer] DEGREE DIET: REGULAR. LANGUAGE LANGUAGES SPOKEN:[place]WE[place] DOMESTIC VIOLENCE DO YOU FEEL SAFE IN YOUR ENVIRONMENT?YES RECREATIONAL DRUG USE DRUG USE?NO EXERCISE: NONE. LEARNING BARRIERS / SPECIAL NEEDS BARRIERS TO LEARNING?NO HEARING IMPAIRED?NO VISION IMPAIRED?YES COGNITIVELY IMPAIRED?NO :CORRECTIVE LENSES READINESS TO LEARN?YES LEARNING PREFERENCES?NO LEARNING CAPABILITIES PRESENT?YES EMOTIONAL BARRIERS?NO SPECIAL DEVICES?YES :CANE RETAIL PRICING COORDINATOR NEEDED?NO PAIN CLINIC PFS, CLERGY, PUBLIC HEALTH REFERRALS HAS THE PATIENT BEEN EDUCATED REGARDING HIS/HER PLAN OF CARE?YES HAS THE PATIENT BEEN EDUCATED REGARDING PAIN, THE RISK FOR PAIN, THE IMPORTANCE OF EFFECTIVE PAIN MANAGEMENT, AND THE PAIN ASSESSMENT PROCESS?YES LATEX QUESTIONNAIRE LATEX ALLERGY : HAVE YOU EVER DEVELOPED ANY TYPE OF REACTION AFTER HANDLING LATEX PRODUCTS SUCH RUBBER GLOVES, CONDOMS, DIAPHRAGMS, BALLOONS, SOCKS, OR UNDERWEAR?NO LATEX ALLERGY : HAVE YOU EVER DEVELOPED ANY TYPE OF REACTION DURING OR AFTER DENTAL APPOINTMENT, VAGINAL/RECTAL EXAMINATION, SURGICAL PROCEDURE, OR ANY OTHER EXPOSURE?NO DATE ASKED : 06/26/2019 LATEX RISK : HAVE YOU EVER HAD ANY DIFFICULTY BREATHING OR HIVES AFTER EATING OR HANDLING ANY FRUITS, OR VEGETABLES; SUCH KIWI, BANANAS, STONE FRUITS, OR CHESTNUTSNO LATEX RISK : DO YOU HAVE A PREVIOUS PERSONAL HISTORY OF MORE THAN NINE SURGERIES, SPINA BIFIDA, OR REPEATED CATHERIZATIONS? NO LATEX RISK : ARE YOU FREQUENTLY EXPOSED TO LATEX PRODUCTS IN YOUR OCCUPATION?NO ADVANCE DIRECTIVE ADVANCE DIRECTIVE DISCUSSED WITH PATIENT:YES HCP [facility] FILE @[facility] ED[facility]ryn GUTIERREZ [phone] & ELBA LAROSE (SISTER) [phone] (HOME), (CELL) ORTHODOX [id number] OTHER MARITAL STATUS: SINGLE. ALCOHOL SCREENING DID YOU HAVE A DRINK CONTAINING ALCOHOL IN THE PAST YEAR?NO POINTS0 INTERPRETATIONNEGATIVE OCCUPATION: RETIRED FROM [employer] WORKING WITH MENTALLY DISABLED. REVIEWED NL 10/14/18REVIEWED WITH PT 01/23/19 1115 [id number] REVIEWED WITH PT. ADREVIEWED WITH PATIENT 05/06/19 1128 JS06/26/19 REVIEWED WITH PT. ADPRE PROCEDURE REVIEW FOR 12-02-19 BRADY REVIEWED WITH PT 08/11/19 1053 NLJREVIEWED WITH PATIENT 10/10/19 1100 JSREVIEWED WITH PATIENT 12/02/19 0930 BV. HOSPITALIZATION/MAJOR DIAGNOSTIC PROCEDURE SURGERIES REVIEW OF SYSTEMS REVIEWED BY: PROVIDER: SHASHI ALEJANDRA . CONSTITUTIONAL: ANY CHANGE IN YOUR MEDICAL CONDITION? NO . CHILLS NO . FEVER NO . INFECTION: DO YOU HAVE NEW INFECTIONS? NO . DO YOU HAVE HISTORY OF MRSA? NO . MUSCULOSKELETAL: ANY NEW PATTERNS OF PAIN OR NUMBNESS? NO . GASTROENTEROLOGY: ANY NEW CHANGE IN BOWEL CONTROL? NO . GENITOURINARY: ANY NEW CHANGE IN BLADDER CONTROL? NO . IS THERE A CHANCE YOU COULD BE ? NO . HEMATOLOGY/LYMPH: DO YOU TAKE ANY BLOOD THINNERS? (FOR EXAMPLE- COUMADIN, PLAVIX, AGGRENOX, PLATEL, PRADAXA, OR XARELTO) NO . WHEN WAS YOUR LAST DOSE? DATE: TIME: . NEUROLOGY: HAVE YOU FALLEN IN THE PAST 12 MONTHS? YES, PRIOR TO LAST VISIT . ANY NEW EXTREMITY NUMBNESS OR WEAKNESS? NO . CARDIOLOGY: DO YOU HAVE A PACEMAKER OR DEFIBRILLATOR? NO . RESPIRATORY: HAVE YOU BEEN SICK IN THE PAST WEEK? NO . FEVER NO . FLU LIKE SYMPTOMS? NO . COUGH NO . INTEGUMENTARY: DO YOU HAVE ANY RASHES OR OPEN SORES? NO . ALLERGIC/IMMUNO: ARE YOU ALLERGIC TO IV DYE? NO . ANY NEW ALLERGIES? NO . PSYCHIATRIC: DO YOU HAVE THOUGHTS OF HURTING YOURSELF OR SOMEONE ELSE? NO . ARE YOU ABUSED, NEGLECTED, OR IN AN UNSAFE ENVIRONMENT? NO . ENDOCRINOLOGY: ARE YOU DIABETIC? NO . OTHER: DO YOU NEED ANY PRESCRIPTIONS? NO . IF YES, PLEASE LIST: ____ . ANY NEW PROBLEMS WITH YOUR MEDICATIONS? NO . WHEN DID YOU LAST EAT? ____ . WHEN DID YOU LAST DRINK? ____ . WHAT DID YOU LAST DRINK? ____ . NAME OF PERSON DRIVING YOU HOME? ____ . DO YOU HAVE ANY OTHER QUESTIONS OR CONCERNS NO . VITAL SIGNS WT 218 LBS, HT 69 IN, BMI 32.19 INDEX, BP 139/72 MM HG, HR 68 /MIN, RR 16 /MIN, TEMP 97.0 F, OXYGEN SAT % 96, REVIEWED BY: EM. EXAMINATION GENERAL EXAMINATION: GENERALAWAKE,ALERT. PSYCHAFFECT NORMAL . LUNGS:LUNG NAIR ARE CLEAR TO AUSCULTATION BILATERALLY. GOOD MOVEMENT OF AIR . HEART:S1, S2 IN A REGULAR RATE AND RHYTHM. NO SIGNIFICANT MURMURS, RUBS OR GALLOPS NOTED . ASSESSMENTS SACROILIITIS, NOT ELSEWHERE CLASSIFIED - M46.1 (PRIMARY) TREATMENT SACROILIITIS, NOT ELSEWHERE CLASSIFIED NOTES: CONTINUE CONSERVATIVE CARE AND STRETCHING. PROCEDURE CODES FA211 ESTABILISHED PATIENT [facility] CHARGE DISPOSITION & COMMUNICATION FOLLOW UP 3 MONTHS (REASON: SACROILLITIS) ELECTRONICALLY SIGNED BY JUSTYN BOTELLO ON 01/05/2020 AT 10:48 AM EST DISCLAIMER : THIS IS A VISIT SUMMARY EXTRACTED FROM THE [employer] CHART. IT IS NOT A COPY OF THE [employer] PROGRESS NOTE. JORDYN
== END ==
LOC: M PAIN 10:30
PROVIDERS: ATTEND Nurse Practitioner Family
DX: M46.1 Sacroiliitis, not elsewhere classified (principal)

== ENCOUNTER → 2020-03-17 | Outpatient (CLI) | payer OTHER ==
--- NOTE | 2020-03-19 04:26 | ECWPNPC ---
PATIENT NAME: CYNTHIA LAROSE : 1950 GENDER: FEMALE VISIT DATE: 03/17/2020 DISCHARGE DATE: 03/17/20 0954 VISIT LOCKED DATE TIME: PHYSICIAN: SHASHI NGUYEN RESOURCE: SHASHI NGUYEN REASON FOR APPOINTMENT 1. LOW BACK [email or web address] HISTORY OF PRESENT ILLNESS HISTORY OF PRESENT ILLNESS: PATIENT IS AGREEABLE TO TELEPHONE VISIT TODAY. STATES LOW BACK PAIN HAS INCREASED OVER THE PAST MONTH. DESCRIBES PAIN ACHING AND STABBING ACROSS THE LOWER BACK AREA. PAIN IS AGGRAVATED BY GOING UP AND DOWN STAIRS. PAIN IS RELIEVED SOMEWHAT WITH HEAT AND REST. HAS RESPONDED WELL TO BILATERAL SACROILIAC JOINT BLOCKS IN THE PAST. RATING PAIN LEVEL 6/10 VAS. PAIN THE PATIENT DESCRIBES THE PAIN... FALL RISK SCREENING: SCREENING :NO FALLS REPORTED IN THE LAST YEAR CURRENT MEDICATIONS TAKING LATANOPROST 0.005 % SOLUTION 1 DROP INTO AFFECTED EYE IN THE EVENING OPHTHALMIC ONCE A DAY TAKING CYCLOSPORINE 0.1 % EMULSION 1 DROP INTO AFFECTED EYE OPHTHALMIC BEFORE BEDTIME TAKING TIMOLOL MALEATE 0.25 % SOLUTION 1 DROP INTO AFFECTED EYE OPHTHALMIC ONCE A DAY TAKING ROPINIROLE HCL 0.5 MG TABLET 1 TABLET 1 TO 3 HOURS BEFORE BEDTIME ORALLY ONCE A DAY TAKING TRAMADOL HCL 50 MG TABLET 1 TABLET NEEDED ORALLY EVERY 6 HRS TAKING OMEPRAZOLE 20 MG CAPSULE DELAYED RELEASE 1 CAPSULE ORALLY ONCE A DAY TAKING OLODATEROL HCL 2.5 MCG/ACT AEROSOL SOLUTION 2 PUFFS INHALATION ONCE A DAY, NOTES: DOSES 1 PUFF DAILY TAKING EZETIMIBE 10 MG TABLET 1 TABLET ORALLY ONCE A DAY TAKING ACETAMINOPHEN 500 MG TABLET 2 TABLETS ORALLY EVERY 6 HOURS NEEDED (MDD 3000 MG) TAKING CALTRATE 600 1500 (600 CA) MG TABLET 1 CAP ORALLY BID TAKING ASPIRIN 81 MG TABLET CHEWABLE 1 TABLET ORALLY ONCE A DAY NOT-TAKING MAY HAVE CBD OIL ORALLY BID NOT-TAKING ALBUTEROL SULFATE HFA 108 (90 BASE) MCG/ACT AEROSOL SOLUTION 2 PUFFS NEEDED INHALATION EVERY 6 HRS NOT-TAKING ATORVASTATIN CALCIUM 10 MG TABLET 1 TABLET ORALLY ONCE A DAY MEDICATION LIST REVIEWED AND RECONCILED WITH THE PATIENT PAST MEDICAL HISTORY GLAUCOMA LOW BACK PAIN ALLERGIC RHINITIS HYPERLIPIDEMIA DYSPEPSIA, DYSPHAGIA OSTEOPENIA CHOLELITHIASIS HEMORRHOIDS RECTAL MASS RESTLESS LEGS BREAST CANCER COPD ALLERGIES PENICILLIN (FOR ALLERGIES USE ONLY): JOINT PAIN - SIDE EFFECTS SURGICAL HISTORY LEFT KNEE REPLACEMENT TONSILLECTOMY BILAT MASTECTOMY RIGHT SUBCLAVIAN PORT PLACED AND REMOVED CHOLECYSTECTOMY REPAIR OF FISSURE 07/2019 FISTULA REPAIR 08/2019 FAMILY HISTORY FATHER: , NON KNOWN HISTORY MOTHER: 89 YRS 2 BROTHER(S) , 1 SISTER(S) - HEALTHY. MOTHER-ALZHEIMERS NEPHEW DIAGNOSED WITH THROAT CANCER. SOCIAL HISTORY GENERAL: TOBACCO USE ARE YOU A:FORMER SMOKER LATEX QUESTIONNAIRE LATEX ALLERGY : HAVE YOU EVER DEVELOPED ANY TYPE OF REACTION AFTER HANDLING LATEX PRODUCTS SUCH RUBBER GLOVES, CONDOMS, DIAPHRAGMS, BALLOONS, SOCKS, OR UNDERWEAR?NO LATEX ALLERGY : HAVE YOU EVER DEVELOPED ANY TYPE OF REACTION DURING OR AFTER DENTAL APPOINTMENT, VAGINAL/RECTAL EXAMINATION, SURGICAL PROCEDURE, OR ANY OTHER EXPOSURE?NO LATEX RISK : HAVE YOU EVER HAD ANY DIFFICULTY BREATHING OR HIVES AFTER EATING OR HANDLING ANY FRUITS, OR VEGETABLES; SUCH KIWI, BANANAS, STONE FRUITS, OR CHESTNUTSNO LATEX RISK : DO YOU HAVE A PREVIOUS PERSONAL HISTORY OF MORE THAN NINE SURGERIES, SPINA BIFIDA, OR REPEATED CATHERIZATIONS? NO LATEX RISK : ARE YOU FREQUENTLY EXPOSED TO LATEX PRODUCTS IN YOUR OCCUPATION?NO DATE ASKED : 03/16/2020 ALCOHOL SCREENING DID YOU HAVE A DRINK CONTAINING ALCOHOL IN THE PAST YEAR?NO POINTS0 INTERPRETATIONNEGATIVE RECREATIONAL DRUG USE DRUG USE?NO ALEVISM [id number] OTHER LANGUAGE LANGUAGES SPOKEN:SAL[place]OREAN EDUCATION LEVEL OF EDUCATION:[employer]ISHED [employer] DEGREE LEARNING BARRIERS / SPECIAL NEEDS BARRIERS TO LEARNING?NO HEARING IMPAIRED?NO VISION IMPAIRED?YES :CORRECTIVE LENSES COGNITIVELY IMPAIRED?NO READINESS TO LEARN?YES LEARNING PREFERENCES?NO LEARNING CAPABILITIES PRESENT?YES EMOTIONAL BARRIERS?NO SPECIAL DEVICES?YES :CANE ANIMAL EVISCERATOR 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 DIET: REGULAR. EXERCISE: NONE. MARITAL STATUS: SINGLE. OTHERS AT HOME: OTHER NON-RELATIVE. NEW PATIENT PAIN DIARY TODAY'S VISIT 03/16/20 PATIENT DESCRIBES PAIN :ACHING, HAVE IT ALL THE TIME, STABBING, TENDER, SORE, SHOOTING FROM 0-10, WHAT LEVEL IS YOUR PAIN TODAY?6 PRECIPITATING FACTORS WALKING ALOT. GOING UP AND DOWN STAIRS, LIFTING AND HELPING HER HOUSE MATE, DAMP WEATHER ALLEVIATING FACTORS HEAT, REST IMPACT ON FUNCTION LIMITS HER ON WHAT SHE IS ABLE TO DO PAIN CLINIC PFS, CLERGY, PUBLIC HEALTH REFERRALS HAS THE PATIENT BEEN EDUCATED REGARDING HIS/HER PLAN OF CARE?YES HAS THE PATIENT BEEN EDUCATED REGARDING PAIN, THE RISK FOR PAIN, THE IMPORTANCE OF EFFECTIVE PAIN MANAGEMENT, AND THE PAIN ASSESSMENT PROCESS?YES ADVANCE DIRECTIVE ADVANCE DIRECTIVE DISCUSSED WITH PATIENT:YES HCP ON FILE @[facility] Celeste GUTIERREZ [phone] & ELBA LAROSE (SISTER) [phone] (HOME), (CELL) 03/16/2020 PRE-APPROINTMENT CALL COMPLETED. HOSPITALIZATION/MAJOR DIAGNOSTIC PROCEDURE SURGERIES REVIEW OF SYSTEMS REVIEWED BY: PROVIDER: SHASHI ALEJANDRA . CONSTITUTIONAL: ANY CHANGE IN YOUR MEDICAL CONDITION? NO . CHILLS NO . FEVER NO . INFECTION: DO YOU HAVE NEW INFECTIONS? NO . DO YOU HAVE HISTORY OF MRSA? NO . MUSCULOSKELETAL: ANY NEW PATTERNS OF PAIN OR NUMBNESS? NO . GASTROENTEROLOGY: ANY NEW CHANGE IN BOWEL CONTROL? NO . GENITOURINARY: ANY NEW CHANGE IN BLADDER CONTROL? NO . IS THERE A CHANCE YOU COULD BE ? NO . HEMATOLOGY/LYMPH: DO YOU TAKE ANY BLOOD THINNERS? (FOR EXAMPLE- COUMADIN, PLAVIX, AGGRENOX, PLATEL, PRADAXA, OR XARELTO) NO . WHEN WAS YOUR LAST DOSE? DATE: TIME: . NEUROLOGY: HAVE YOU FALLEN IN THE PAST 12 MONTHS? YES, A COUPLE OF TIMES-WAS TRIPPED UP BY THE DOG-NO INJURY-NOT EVALUATED AFTER . ANY NEW EXTREMITY NUMBNESS OR WEAKNESS? NO . CARDIOLOGY: DO YOU HAVE A PACEMAKER OR DEFIBRILLATOR? NO . RESPIRATORY: HAVE YOU BEEN SICK IN THE PAST WEEK? NO . FEVER NO . FLU LIKE SYMPTOMS? NO . COUGH NO . INTEGUMENTARY: DO YOU HAVE ANY RASHES OR OPEN SORES? NO . ALLERGIC/IMMUNO: ARE YOU ALLERGIC TO IV DYE? NO . ANY NEW ALLERGIES? NO . PSYCHIATRIC: DO YOU HAVE THOUGHTS OF HURTING YOURSELF OR SOMEONE ELSE? NO . ARE YOU ABUSED, NEGLECTED, OR IN AN UNSAFE ENVIRONMENT? NO . ENDOCRINOLOGY: ARE YOU DIABETIC? NO . OTHER: DO YOU NEED ANY PRESCRIPTIONS? NO . IF YES, PLEASE LIST: ____ . ANY NEW PROBLEMS WITH YOUR MEDICATIONS? NO . WHEN DID YOU LAST EAT? ____ . WHEN DID YOU LAST DRINK? ____ . WHAT DID YOU LAST DRINK? ____ . NAME OF PERSON DRIVING YOU HOME? ____ . DO YOU HAVE ANY OTHER QUESTIONS OR CONCERNS NO . ASSESSMENTS SACROILIITIS, NOT ELSEWHERE CLASSIFIED - M46.1 (PRIMARY) TREATMENT SACROILIITIS, NOT ELSEWHERE CLASSIFIED NOTES: BILATERAL SIJ CONTINUE MEDICATION MANAGEMENT FOR PAIN WITH VA. BILATERAL SACROILIAC JOINT PLANNED SHE HAS RESPONDED WELL TO THIS PROCEDURE IN THE PAST. SHE USUALLY GETS SEVERAL MONTHS OF IMPROVEMENT IN PAIN POST PROCEDURE. TOTAL TIME SPENT DURING TELEPHONE VISIT WAS APPROXIMATELY 12 MINUTES. OTHERS NOTES: V/S NOT DONE DUE TO TELEPHONE VISIT. PREVENTIVE MEDICINE PAIN CLINIC TEACHING: PROCEDURE TEACHING CALLED PATIENT AT THIS TIME, PATIENT WAS NOT AVAILABLE TO TALK. INFORMED PATIENT'S HCP WHO ANSWERED THE PHONE THAT I WOULD BE MAILING PRE-PROCEDURE INSTRUCTIONS AND THAT IF THE PATIENT HAD ANY QUESTIONS TO GIVE US A CALL. MAILED PRE-PROCEDURE INSTRUCTIONS TO PATIENT AT THIS TIME. FABIEN ROSENBERG 03/17/2020 11:35:47 AM > . DISPOSITION & COMMUNICATION FOLLOW UP POST (REASON: BILATERAL SIJ) ELECTRONICALLY SIGNED BY JUSTYN BOTELLO ON 03/18/2020 AT 01:54 PM EDT DISCLAIMER : THIS IS A VISIT SUMMARY EXTRACTED FROM THE [employer] CHART. IT IS NOT A COPY OF THE [employer] PROGRESS NOTE. JORDYN
== END ==
LOC: M PAIN 09:30
PROVIDERS: ATTEND Nurse Practitioner Family
DX: M46.1 Sacroiliitis, not elsewhere classified (principal); G25.81 Restless legs syndrome; J44.9 Chronic obstructive pulmonary disease, unspecified; Z96.651 Presence of right artificial knee joint; Z87.891 Personal history of nicotine dependence; Z88.0 Allergy status to penicillin; Z79.82 Long term (current) use of aspirin; Z79.899 Other long term (current) drug therapy

== ENCOUNTER → 2020-04-16 | Outpatient (CLI) | payer OTHER | LOC: M LABSMTC 10:04 | PROVIDERS: ATTEND Anesthesiology | DX: Z03.818 Encounter for observation for suspected exposure to other biological agents ruled out (principal) | CPT/HCPCS: C9803; U0003 ==

== ENCOUNTER → 2020-04-19 | Outpatient (CLI) | payer OTHER ==
[~2020-04-19] MED LIST changes: -BUPIVACAINE HCL 0.25% 30 ML VIAL As Ordered ONE; +BUPIVACAINE HCL 0.25% 30ML VIAL As Ordered ONE; -ISOVUE-M 300 61% 15ML VIAL (Q9967) As Ordered ONE; +ISOVUE-M 300 61% 15ML VIAL As Ordered ONE; +LIDOCAINE 1% SDV 30ML VIAL As Ordered ONE; -LIDOCAINE 1% SDV INJ 30 ML VIAL As Ordered ONE; -TRIAMCINOLONE ACETONIDE SUSP 40 MG/ML VIAL (J3301) As Ordered ONE; +dexameTHASONE 10MG/1ML VIAL PRES.FREE (J1100 PER 1MG) As Ordered ONE
--- NOTE | 2020-04-19 14:14 | REP ---
C-ARM VIEWS SACROILIAC JOINTS: CLINICAL HISTORY: Pain. Four C-arm views of bilateral sacroiliac joints performed during injection by Dr. Dash. A needle is seen overlying the both sacroiliac joints. 13 seconds of fluoroscopy time utilized. Electronically Signed by Roby Isbell MD 04/20/2020 01:07 P
--- NOTE | 2020-04-21 02:00 | ECWPNPC ---
PATIENT NAME: CYNTHIA LAROSE : 1950 GENDER: FEMALE VISIT DATE: 04/19/2020 DISCHARGE DATE: 04/19/20 1012 VISIT LOCKED DATE TIME: PHYSICIAN: DIANA BOOKER MD RESOURCE: DIANA BOOKER MD REASON FOR APPOINTMENT 1. BILATERAL SIJ- PAT COMPLETED HISTORY OF PRESENT ILLNESS PAIN CENTER INTAKE QUESTIONS: DO YOU HAVE A HISTORY OF MRSA? :NO DO YOU TAKE A BLOOD THINNERS? :NO DO YOU HAVE ANY BLEEDING DISORDERS? :NO ANY NEW NUMBNESS OR WEAKNESS IN YOUR LEGS OR ARMS? :YES STATES NUMBNESS HAS INCREASED IN BILATERAL LEGS GREATER IN RIGHT ANY PACEMAKER,DEFIBRILLATOR, OR DORSAL COLUMN STIMULATOR? :NO DO YOU HAVE ANY RASHES OR OPEN SORES? :NO ARE YOU ALLERGIC TO IV DYE? :NO ARE YOU DIABETIC? :NO ANY NEW PROBLEMS WITH YOUR MEDICATIONS? :NO HAVE YOU RECEIVED A VACCINE IN THE PAST 30 DAYS? :NO DO YOU PLAN TO RECEIVE A VACCINE IN THE NEXT 21 DAYS? :NO ANY HISTORY OF SEIZURES? :NO ANY HISTORY OF CARDIAC ISSUES OR EVENTS? :NO DO YOU HAVE SLEEP APNEA? :NO ANY RECENT HEAD INJURY? :NO DO YOU HAVE ANY NEW INFECTIONS? :NO WHEN DID YOU LAST EAT? : -04/18 2000 WHEN DID YOU LAST DRINK? : -04/19 600 WHAT DID YOU LAST DRINK? : -WATER NAME OF PERSON DRIVING YOU HOME? : JESSICA DO YOU HAVE ANY OTHER QUESTIONS OR CONCERNS? : - GENERAL: -. FALL RISK SCREENING: SCREENING :NO FALLS REPORTED IN THE LAST YEAR PAIN SCREENING: PATIENT HAS A COMPLAINT OF ACUTE OR CHRONIC PAIN :YES LOCATION OF PAIN:LOW BACK, LEG(S) INTENSITY OF PAIN (SCALE OF 1 TO 10):5 1-10 AVERAGE PAIN LEVELS WHAT DOES YOUR PAIN FEEL LIKE:CONTINOUS, SHARP, STABBING, THROBBING DURATION:AWAKENS FROM SLEEP PAIN IS INCREASED BY:ACTIVITIES PAIN IS DECREASED BY:USE OF PAIN MEDICATIONS, OTHERS LYING DOWN AND GABAPENTIN ARE HELPING NURSING NOTE: -. CURRENT MEDICATIONS TAKING LATANOPROST 0.005 % SOLUTION 1 DROP INTO AFFECTED EYE IN THE EVENING OPHTHALMIC ONCE A DAY, NOTES: 04/18 2100 TAKING CYCLOSPORINE 0.1 % EMULSION 1 DROP INTO AFFECTED EYE OPHTHALMIC BEFORE BEDTIME, NOTES: 04/18 2100 TAKING TIMOLOL MALEATE 0.25 % SOLUTION 1 DROP INTO AFFECTED EYE OPHTHALMIC ONCE A DAY, NOTES: 04/19 600 TAKING ROPINIROLE HCL 0.5 MG TABLET 1 TABLET 1 TO 3 HOURS BEFORE BEDTIME ORALLY ONCE A DAY, NOTES: 04/18 2100 TAKING TRAMADOL HCL 50 MG TABLET 1 TABLET NEEDED ORALLY EVERY 6 HRS, NOTES: 04/18 2100 TAKING OMEPRAZOLE 20 MG CAPSULE DELAYED RELEASE 1 CAPSULE ORALLY ONCE A DAY, NOTES: 04/19 600 TAKING OLODATEROL HCL 2.5 MCG/ACT AEROSOL SOLUTION 2 PUFFS INHALATION ONCE A DAY, NOTES: 04/18 1400 TAKING EZETIMIBE 10 MG TABLET 1 TABLET ORALLY ONCE A DAY, NOTES: 04/18 2100 TAKING ACETAMINOPHEN 500 MG TABLET 2 TABLETS ORALLY EVERY 6 HOURS NEEDED (MDD 3000 MG), NOTES: 04/19 600 TAKING CALTRATE 600 1500 (600 CA) MG TABLET 1 CAP ORALLY BID, NOTES: 04/19 600 TAKING ASPIRIN 81 MG TABLET CHEWABLE 1 TABLET ORALLY ONCE A DAY, NOTES: 04/19 600 TAKING GABAPENTIN 300 MG CAPSULE 1 CAPSULE ORALLY BEFORE BEDTIME, NOTES: 04/18 2100 NOT-TAKING MAY HAVE CBD OIL ORALLY BID NOT-TAKING ALBUTEROL SULFATE HFA 108 (90 BASE) MCG/ACT AEROSOL SOLUTION 2 PUFFS NEEDED INHALATION EVERY 6 HRS NOT-TAKING ATORVASTATIN CALCIUM 10 MG TABLET 1 TABLET ORALLY ONCE A DAY MEDICATION LIST REVIEWED AND RECONCILED WITH THE PATIENT PAST MEDICAL HISTORY GLAUCOMA LOW BACK PAIN ALLERGIC RHINITIS HYPERLIPIDEMIA DYSPEPSIA, DYSPHAGIA OSTEOPENIA CHOLELITHIASIS HEMORRHOIDS RECTAL MASS RESTLESS LEGS BREAST CANCER COPD ALLERGIES PENICILLIN (FOR ALLERGIES USE ONLY): JOINT PAIN - SIDE EFFECTS SURGICAL HISTORY LEFT KNEE REPLACEMENT TONSILLECTOMY BILAT MASTECTOMY RIGHT SUBCLAVIAN PORT PLACED AND REMOVED CHOLECYSTECTOMY REPAIR OF FISSURE 07/2019 FISTULA REPAIR 08/2019 FAMILY HISTORY FATHER: , NON KNOWN HISTORY MOTHER: 89 YRS 2 BROTHER(S) , 1 SISTER(S) - HEALTHY. MOTHER-ALZHEIMERS NEPHEW DIAGNOSED WITH THROAT CANCER. SOCIAL HISTORY GENERAL: TOBACCO USE ARE YOU A:FORMER SMOKER LATEX QUESTIONNAIRE LATEX ALLERGY : HAVE YOU EVER DEVELOPED ANY TYPE OF REACTION AFTER HANDLING LATEX PRODUCTS SUCH RUBBER GLOVES, CONDOMS, DIAPHRAGMS, BALLOONS, SOCKS, OR UNDERWEAR?NO LATEX ALLERGY : HAVE YOU EVER DEVELOPED ANY TYPE OF REACTION DURING OR AFTER DENTAL APPOINTMENT, VAGINAL/RECTAL EXAMINATION, SURGICAL PROCEDURE, OR ANY OTHER EXPOSURE?NO LATEX RISK : HAVE YOU EVER HAD ANY DIFFICULTY BREATHING OR HIVES AFTER EATING OR HANDLING ANY FRUITS, OR VEGETABLES; SUCH KIWI, BANANAS, STONE FRUITS, OR CHESTNUTSNO LATEX RISK : DO YOU HAVE A PREVIOUS PERSONAL HISTORY OF MORE THAN NINE SURGERIES, SPINA BIFIDA, OR REPEATED CATHERIZATIONS? NO LATEX RISK : ARE YOU FREQUENTLY EXPOSED TO LATEX PRODUCTS IN YOUR OCCUPATION?NO DATE ASKED : 04/16/2020 ALCOHOL SCREENING DID YOU HAVE A DRINK CONTAINING ALCOHOL IN THE PAST YEAR?NO POINTS0 INTERPRETATIONNEGATIVE RECREATIONAL DRUG USE DRUG USE?NO ORIENTAL ORTHODOX [id number] OTHER LANGUAGE LANGUAGES SPOKEN:[place] EDUCATION LEVEL OF EDUCATION:FINISHED COLLEGE ASSOCIATES DEGREE LEARNING BARRIERS / SPECIAL NEEDS BARRIERS TO LEARNING?NO HEARING IMPAIRED?NO VISION IMPAIRED?YES COGNITIVELY IMPAIRED?NO :CORRECTIVE LENSES READINESS TO LEARN?YES LEARNING PREFERENCES?NO LEARNING CAPABILITIES PRESENT?YES EMOTIONAL BARRIERS?NO SPECIAL DEVICES?YES :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 DIET: REGULAR. EXERCISE: NONE. MARITAL STATUS: SINGLE. OTHERS AT HOME: OTHER NON-RELATIVE. NEW PATIENT PAIN DIARY TODAY'S VISIT 03/16/20 PATIENT DESCRIBES PAIN :ACHING, HAVE IT ALL THE TIME, STABBING, TENDER, SORE, SHOOTING FROM 0-10, WHAT LEVEL IS YOUR PAIN TODAY?6 PRECIPITATING FACTORS WALKING ALOT. GOING UP AND DOWN STAIRS, LIFTING AND HELPING HER HOUSE MATE, DAMP WEATHER ALLEVIATING FACTORS HEAT, REST IMPACT ON FUNCTION LIMITS HER ON WHAT SHE IS ABLE TO DO PAIN CLINIC PFS, CLERGY, PUBLIC HEALTH REFERRALS HAS THE PATIENT BEEN EDUCATED REGARDING HIS/HER PLAN OF CARE?YES HAS THE PATIENT BEEN EDUCATED REGARDING PAIN, THE RISK FOR PAIN, THE IMPORTANCE OF EFFECTIVE PAIN MANAGEMENT, AND THE PAIN ASSESSMENT PROCESS?YES ADVANCE DIRECTIVE ADVANCE DIRECTIVE DISCUSSED WITH PATIENT:YES HCP ON FILE @[facility] Celeste GUTIERREZ [phone] & ELBA LAROSE (SISTER) [phone] (HOME), (CELL) 03/16/2020 PRE-APPROINTMENT CALL COMPLETED. HOSPITALIZATION/MAJOR DIAGNOSTIC PROCEDURE SURGERIES VITAL SIGNS WT 223.6 LBS, HT 69 IN, BMI 33.02 INDEX, BP 107/60 MM HG, HR 82 /MIN, RR 18 /MIN, TEMP 97.3 F, OXYGEN SAT % 97%, SAFE IN ENV? (Y/N) YES, NA INITIALS AW 0828, REVIEWED BY: GAVIN. EXAMINATION GENERAL EXAMINATION: THE PATIENT IS ALERT, ORIENTED TIMES THREE AND COOPERATIVE. HEART SHOWS REGULAR RHYTHM, NO MURMURS AND NO GALLOPS. LUNGS ARE CLEAR TO AUSCULTATION. ASSESSMENTS SACROILIITIS, NOT ELSEWHERE CLASSIFIED - M46.1 SACROILIAC JOINT DYSFUNCTION - M53.3 TREATMENT SACROILIITIS, NOT ELSEWHERE CLASSIFIED [facility] FLUORO GUIDANCE (PAIN)[id number] OTHERS NOTES: PRE PROCEDURE PHONE CALL COMPLETED. PROCEDURES PAIN NURSING RECORD PRE-PROCEDURE IV SITE N/A : HEART SOUNDS REGULAR S1S2, LUNGS CLEAR BILATERALLY PROCEDURE IN ROOM 0920, PHYSICIAN IN ROOM 0942, START 0944, FINISH 0948, PHYSICIAN OUT OF ROOM 0950, OUT OF ROOM 0958 VIA STRETCHER, STEROID DEXAMETHASONE, O2 RA, ECG NORMAL SINUS, PATIENT SHIELDED YES, SAFETY STRAP YES, PREP CHLOROPREP Raquel PARSON RN, IV INFUSED N/A, DRESSING TEGADERM LOC: 1. ALERT, ORIENTED RESP: 1. REGULAR, NO DYSPNEA COLOR: 1. PINK SKIN: 1. WARM, DRY POSITION: 1. PRONE VITALS: PT AMBULATED TO PROCEDURE ROOM, GAIT STEADY. 0925 120/71 83-18 94% 0930 124/62 81-18 95% 0945 107/72 72-18 94% 0955 PT TO RECOVERY AREA POST PROCEDURE VIA STRETCHER. 1005 144/78 86-18 96% PAIN LEVEL 0 PT ABLE TO STAND AND AMBULATE, GAIT STEADY. DENIES NUMBNESS OR WEAKNESS IN LEGS. DISCHARGE: POST PAIN 0, DRESSING SITE DRY AND INTACT, IV N/A, GAIT STEADY, TEACHING COMPLETED, PATIENT ACKNOWLEDGES UNDERSTANDING YES, PATIENT DISCHARGED AT 1011 PN SI PRE PROCEDURE DIAGNOSIS SACROILIITIS, SACROILIAC JOINT DYSFUNCTION POST PROCEDURE DIAGNOSIS SACROILIITIS, SACROILIAC JOINT DYSFUNCTION PROCEDURE BILATERAL SACROILIAC JOINT BLOCK SURGEON DR. DIANA BOOKER LOTTERY MANAGER NONE ANESTHESIA LOCAL PRE PROCEDURE NOTE THE PATIENT WITH HISTORY OF CHRONIC LOW BACK PAIN. I EVALUATED THE PATIENT AND REVIEWED THE CHART. I WENT OVER THE RISKS, ALTERNATIVES, AND BENEFITS ASSOCIATED WITH THIS PROCEDURE. I DISCUSSED THAT THE USE OF STEROIDS MAY CONTRIBUTE TO IMMUNOSUPPRESSION OF THE PATIENT'S BODY AGAINST INFECTIONS SUCH THE SWANSON VIRUS, COVID-19. THE PATIENT IS AWARE OF THE POTENTIAL COMPLICATIONS ASSOCIATED WITH AN INFECTION OF THIS VIRUS INCLUDING . THE PATIENT WOULD LIKE TO PROCEED AND GAVE CONSENT TO PERFORM THE PROCEDURE. THE PATIENT DENIES UNEXPLAINABLE WEIGHT LOSS, FEVER, CHILLS, OR NEW CHANGES IN URINARY OR BOWEL CONTROL. THE PATIENT IS COVID-19 NEGATIVE DESCRIPTION OF PROCEDURE THE PATIENT WAS BROUGHT TO THE PROCEDURE ROOM AND PLACED IN THE PRONE POSITION. THE LUMBOSACRAL AREA WAS CLEANED WITH CHLORAPREP SOLUTION AND DRAPED ASEPTICALLY. THE PROCEDURE WAS DONE UNDER STERILE CONDITIONS. I CHECKED LATERALITY AND THE LEVEL WHERE THE PROCEDURE WAS GOING TO BE PERFORMED WITH THE PATIENT AND THE SUPPORTING STAFF AT THE MOMENT OF THE TIME OUT IN THE PROCEDURE ROOM. UNDER FLUOROSCOPIC GUIDANCE, TARGET POINT WAS SELECTED AT THE LOWER BORDER OF THE LEFT AND RIGHT SACROILIAC JOINTS. TARGET POINT WAS SELECTED AFTER MEDIAL ROTATION AND TILT OF THE MAGNIFIER OF THE C-ARM. LIDOCAINE WAS USED TO NUMB THE SKIN AND SUBCUTANEOUS TISSUE BELOW IT. A SPINAL NEEDLE, 22-GAUGE, WAS ADVANCED UNDER FLUOROSCOPIC GUIDANCE AND FOLLOWING PATIENT FEEDBACK UNTIL THE TARGET AREA WAS TOUCHED. THE POSITION OF THE NEEDLE WAS VERIFIED WITH AP AND LATERAL VIEWS. AFTER PROPER POSITION OF THE NEEDLE WAS ACHIEVED, ISOVUE M DYE 30%, 0.25 ML, WAS INJECTED SHOWING SPREAD OF THE DYE. THEN, A SOLUTION OF 10 MG OF DEXAMETHASONE WAS INJECTED IN EACH JOINT WITH 3 ML OF BUPIVACAINE 0.125%. THERE WAS NO EVIDENCE OF BLOOD, PARESTHESIA OR CEREBROSPINAL FLUID DURING THE PROCEDURE. THE PATIENT WAS SENT TO THE RECOVERY ROOM. THE PATIENT WAS MOVING THE EXTREMITIES AND DOING WELL. THERE WAS NO COMPLICATION DURING THE PROCEDURE. FLUOROSCOPY TIME WAS 13 SECONDS POST PROCEDURE NOTE THE PROCEDURE DONE WAS DISCUSSED WITH THE PATIENT. THE PATIENT WILL BE SEEN IN A FOLLOW UP IN THE NEXT FEW WEEKS. I AM LOOKING FOR LONG LASTING PAIN RELIEF FOR THE PATIENT WITH THIS INTERVENTION. INSTRUCTIONS WERE GIVEN, QUESTIONS WERE ANSWERED, AND THE PATIENT EXPRESSED UNDERSTANDING AND AGREES WITH THE PLAN. THE PATIENT IS AWARE TO STAY HOME FOR THE NEXT WEEK, IF POSSIBLE, DUE TO COVID-19. I, EVERARDO ROMO, DOCUMENTED THE ABOVE INFORMATION ACTING A SCRIBE FOR DR. BOOKER. I HAVE REVIEWED THE ABOVE DOCUMENT, WRITTEN BY EVERARDO FISHER, GANG MOWER OPERATOR, AND I VERIFY THAT IT IS ACCURATE PROCEDURE CODES 00905 INJECT SACROILIAC JOINT, MODIFIERS: 50 DISPOSITION & COMMUNICATION FOLLOW UP F/UP WITH PHOTOGRAPHY PROFESSOR (REASON: POST ZURDO SIJ) ELECTRONICALLY SIGNED BY DIANA BOOKER MD, MD ON 04/20/2020 AT 09:56 AM EDT DISCLAIMER : THIS IS A VISIT SUMMARY EXTRACTED FROM THE [employer] CHART. IT IS NOT A COPY OF THE [employer] PROGRESS NOTE. JORDYN
--- NOTE | 2020-04-21 02:02 | ECWPNPC ---
PATIENT NAME: CYNTHIA LAROSE : 1950 GENDER: FEMALE VISIT DATE: 04/19/2020 DISCHARGE DATE: 04/19/20 1012 VISIT LOCKED DATE TIME: PHYSICIAN: DIANA BOOKER MD RESOURCE: DIANA BOOKER MD REASON FOR APPOINTMENT 1. BILATERAL SIJ- PAT COMPLETED HISTORY OF PRESENT ILLNESS PAIN CENTER INTAKE QUESTIONS: DO YOU HAVE A HISTORY OF MRSA? :NO DO YOU TAKE A BLOOD THINNERS? :NO DO YOU HAVE ANY BLEEDING DISORDERS? :NO ANY NEW NUMBNESS OR WEAKNESS IN YOUR LEGS OR ARMS? :YES STATES NUMBNESS HAS INCREASED IN BILATERAL LEGS GREATER IN RIGHT ANY PACEMAKER,DEFIBRILLATOR, OR DORSAL COLUMN STIMULATOR? :NO DO YOU HAVE ANY RASHES OR OPEN SORES? :NO ARE YOU ALLERGIC TO IV DYE? :NO ARE YOU DIABETIC? :NO ANY NEW PROBLEMS WITH YOUR MEDICATIONS? :NO HAVE YOU RECEIVED A VACCINE IN THE PAST 30 DAYS? :NO DO YOU PLAN TO RECEIVE A VACCINE IN THE NEXT 21 DAYS? :NO ANY HISTORY OF SEIZURES? :NO ANY HISTORY OF CARDIAC ISSUES OR EVENTS? :NO DO YOU HAVE SLEEP APNEA? :NO ANY RECENT HEAD INJURY? :NO DO YOU HAVE ANY NEW INFECTIONS? :NO WHEN DID YOU LAST EAT? : -04/18 2000 WHEN DID YOU LAST DRINK? : -04/19 600 WHAT DID YOU LAST DRINK? : -WATER NAME OF PERSON DRIVING YOU HOME? : JESSICA DO YOU HAVE ANY OTHER QUESTIONS OR CONCERNS? : - GENERAL: -. FALL RISK SCREENING: SCREENING :NO FALLS REPORTED IN THE LAST YEAR PAIN SCREENING: PATIENT HAS A COMPLAINT OF ACUTE OR CHRONIC PAIN :YES LOCATION OF PAIN:LOW BACK, LEG(S) INTENSITY OF PAIN (SCALE OF 1 TO 10):5 1-10 AVERAGE PAIN LEVELS WHAT DOES YOUR PAIN FEEL LIKE:CONTINOUS, SHARP, STABBING, THROBBING DURATION:AWAKENS FROM SLEEP PAIN IS INCREASED BY:ACTIVITIES PAIN IS DECREASED BY:USE OF PAIN MEDICATIONS, OTHERS LYING DOWN AND GABAPENTIN ARE HELPING NURSING NOTE: -. CURRENT MEDICATIONS TAKING LATANOPROST 0.005 % SOLUTION 1 DROP INTO AFFECTED EYE IN THE EVENING OPHTHALMIC ONCE A DAY, NOTES: 04/18 2100 TAKING CYCLOSPORINE 0.1 % EMULSION 1 DROP INTO AFFECTED EYE OPHTHALMIC BEFORE BEDTIME, NOTES: 04/18 2100 TAKING TIMOLOL MALEATE 0.25 % SOLUTION 1 DROP INTO AFFECTED EYE OPHTHALMIC ONCE A DAY, NOTES: 04/19 600 TAKING ROPINIROLE HCL 0.5 MG TABLET 1 TABLET 1 TO 3 HOURS BEFORE BEDTIME ORALLY ONCE A DAY, NOTES: 04/18 2100 TAKING TRAMADOL HCL 50 MG TABLET 1 TABLET NEEDED ORALLY EVERY 6 HRS, NOTES: 04/18 2100 TAKING OMEPRAZOLE 20 MG CAPSULE DELAYED RELEASE 1 CAPSULE ORALLY ONCE A DAY, NOTES: 04/19 600 TAKING OLODATEROL HCL 2.5 MCG/ACT AEROSOL SOLUTION 2 PUFFS INHALATION ONCE A DAY, NOTES: 04/18 1400 TAKING EZETIMIBE 10 MG TABLET 1 TABLET ORALLY ONCE A DAY, NOTES: 04/18 2100 TAKING ACETAMINOPHEN 500 MG TABLET 2 TABLETS ORALLY EVERY 6 HOURS NEEDED (MDD 3000 MG), NOTES: 04/19 600 TAKING CALTRATE 600 1500 (600 CA) MG TABLET 1 CAP ORALLY BID, NOTES: 04/19 600 TAKING ASPIRIN 81 MG TABLET CHEWABLE 1 TABLET ORALLY ONCE A DAY, NOTES: 04/19 600 TAKING GABAPENTIN 300 MG CAPSULE 1 CAPSULE ORALLY BEFORE BEDTIME, NOTES: 04/18 2100 NOT-TAKING MAY HAVE CBD OIL ORALLY BID NOT-TAKING ALBUTEROL SULFATE HFA 108 (90 BASE) MCG/ACT AEROSOL SOLUTION 2 PUFFS NEEDED INHALATION EVERY 6 HRS NOT-TAKING ATORVASTATIN CALCIUM 10 MG TABLET 1 TABLET ORALLY ONCE A DAY MEDICATION LIST REVIEWED AND RECONCILED WITH THE PATIENT PAST MEDICAL HISTORY GLAUCOMA LOW BACK PAIN ALLERGIC RHINITIS HYPERLIPIDEMIA DYSPEPSIA, DYSPHAGIA OSTEOPENIA CHOLELITHIASIS HEMORRHOIDS RECTAL MASS RESTLESS LEGS BREAST CANCER COPD ALLERGIES PENICILLIN (FOR ALLERGIES USE ONLY): JOINT PAIN - SIDE EFFECTS SURGICAL HISTORY LEFT KNEE REPLACEMENT TONSILLECTOMY BILAT MASTECTOMY RIGHT SUBCLAVIAN PORT PLACED AND REMOVED CHOLECYSTECTOMY REPAIR OF FISSURE 07/2019 FISTULA REPAIR 08/2019 FAMILY HISTORY FATHER: , NON KNOWN HISTORY MOTHER: 89 YRS 2 BROTHER(S) , 1 SISTER(S) - HEALTHY. MOTHER-ALZHEIMERS NEPHEW DIAGNOSED WITH THROAT CANCER. SOCIAL HISTORY GENERAL: TOBACCO USE ARE YOU A:FORMER SMOKER LATEX QUESTIONNAIRE LATEX ALLERGY : HAVE YOU EVER DEVELOPED ANY TYPE OF REACTION AFTER HANDLING LATEX PRODUCTS SUCH RUBBER GLOVES, CONDOMS, DIAPHRAGMS, BALLOONS, SOCKS, OR UNDERWEAR?NO LATEX ALLERGY : HAVE YOU EVER DEVELOPED ANY TYPE OF REACTION DURING OR AFTER DENTAL APPOINTMENT, VAGINAL/RECTAL EXAMINATION, SURGICAL PROCEDURE, OR ANY OTHER EXPOSURE?NO LATEX RISK : HAVE YOU EVER HAD ANY DIFFICULTY BREATHING OR HIVES AFTER EATING OR HANDLING ANY FRUITS, OR VEGETABLES; SUCH KIWI, BANANAS, STONE FRUITS, OR CHESTNUTSNO LATEX RISK : DO YOU HAVE A PREVIOUS PERSONAL HISTORY OF MORE THAN NINE SURGERIES, SPINA BIFIDA, OR REPEATED CATHERIZATIONS? NO LATEX RISK : ARE YOU FREQUENTLY EXPOSED TO LATEX PRODUCTS IN YOUR OCCUPATION?NO DATE ASKED : 04/16/2020 ALCOHOL SCREENING DID YOU HAVE A DRINK CONTAINING ALCOHOL IN THE PAST YEAR?NO POINTS0 INTERPRETATIONNEGATIVE RECREATIONAL DRUG USE DRUG USE?NO MU-ISM [id number] OTHER LANGUAGE LANGUAGES SPOKEN:SYRIAC EDUCATION LEVEL OF EDUCATION:FINISHED COLLEGE ASSOCIATES DEGREE LEARNING BARRIERS / SPECIAL NEEDS BARRIERS TO LEARNING?NO HEARING IMPAIRED?NO VISION IMPAIRED?YES COGNITIVELY IMPAIRED?NO :CORRECTIVE LENSES READINESS TO LEARN?YES LEARNING PREFERENCES?NO LEARNING CAPABILITIES PRESENT?YES EMOTIONAL BARRIERS?NO SPECIAL DEVICES?YES :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 DIET: REGULAR. EXERCISE: NONE. MARITAL STATUS: SINGLE. OTHERS AT HOME: OTHER NON-RELATIVE. NEW PATIENT PAIN DIARY TODAY'S VISIT 03/16/20 PATIENT DESCRIBES PAIN :ACHING, HAVE IT ALL THE TIME, STABBING, TENDER, SORE, SHOOTING FROM 0-10, WHAT LEVEL IS YOUR PAIN TODAY?6 PRECIPITATING FACTORS WALKING ALOT. GOING UP AND DOWN STAIRS, LIFTING AND HELPING HER HOUSE MATE, DAMP WEATHER ALLEVIATING FACTORS HEAT, REST IMPACT ON FUNCTION LIMITS HER ON WHAT SHE IS ABLE TO DO PAIN CLINIC PFS, CLERGY, PUBLIC HEALTH REFERRALS HAS THE PATIENT BEEN EDUCATED REGARDING HIS/HER PLAN OF CARE?YES HAS THE PATIENT BEEN EDUCATED REGARDING PAIN, THE RISK FOR PAIN, THE IMPORTANCE OF EFFECTIVE PAIN MANAGEMENT, AND THE PAIN ASSESSMENT PROCESS?YES ADVANCE DIRECTIVE ADVANCE DIRECTIVE DISCUSSED WITH PATIENT:YES HCP ON FILE @[facility] Celeste GUTIERREZ [phone] & ELBA LAROSE (SISTER) [phone] (HOME), (CELL) 03/16/2020 PRE-APPROINTMENT CALL COMPLETED. HOSPITALIZATION/MAJOR DIAGNOSTIC PROCEDURE SURGERIES VITAL SIGNS WT 223.6 LBS, HT 69 IN, BMI 33.02 INDEX, BP 107/60 MM HG, HR 82 /MIN, RR 18 /MIN, TEMP 97.3 F, OXYGEN SAT % 97%, SAFE IN ENV? (Y/N) YES, NA INITIALS AW 0828, REVIEWED BY: GAVIN. EXAMINATION GENERAL EXAMINATION: THE PATIENT IS ALERT, ORIENTED TIMES THREE AND COOPERATIVE. HEART SHOWS REGULAR RHYTHM, NO MURMURS AND NO GALLOPS. LUNGS ARE CLEAR TO AUSCULTATION. ASSESSMENTS SACROILIITIS, NOT ELSEWHERE CLASSIFIED - M46.1 SACROILIAC JOINT DYSFUNCTION - M53.3 TREATMENT SACROILIITIS, NOT ELSEWHERE CLASSIFIED [facility] FLUORO GUIDANCE (PAIN)[id number] OTHERS NOTES: PRE PROCEDURE PHONE CALL COMPLETED. PROCEDURES PAIN NURSING RECORD PRE-PROCEDURE IV SITE N/A : HEART SOUNDS REGULAR S1S2, LUNGS CLEAR BILATERALLY PROCEDURE IN ROOM 0920, PHYSICIAN IN ROOM 0942, START 0944, FINISH 0948, PHYSICIAN OUT OF ROOM 0950, OUT OF ROOM 0958 VIA STRETCHER, STEROID DEXAMETHASONE, O2 RA, ECG NORMAL SINUS, PATIENT SHIELDED YES, SAFETY STRAP YES, PREP CHLOROPREP Raquel PARSON RN, IV INFUSED N/A, DRESSING TEGADERM LOC: 1. ALERT, ORIENTED RESP: 1. REGULAR, NO DYSPNEA COLOR: 1. PINK SKIN: 1. WARM, DRY POSITION: 1. PRONE VITALS: PT AMBULATED TO PROCEDURE ROOM, GAIT STEADY. 0925 120/71 83-18 94% 0930 124/62 81-18 95% 0945 107/72 72-18 94% 0955 PT TO RECOVERY AREA POST PROCEDURE VIA STRETCHER. 1005 144/78 86-18 96% PAIN LEVEL 0 PT ABLE TO STAND AND AMBULATE, GAIT STEADY. DENIES NUMBNESS OR WEAKNESS IN LEGS. DISCHARGE: POST PAIN 0, DRESSING SITE DRY AND INTACT, IV N/A, GAIT STEADY, TEACHING COMPLETED, PATIENT ACKNOWLEDGES UNDERSTANDING YES, PATIENT DISCHARGED AT 1011 PN SI PRE PROCEDURE DIAGNOSIS SACROILIITIS, SACROILIAC JOINT DYSFUNCTION POST PROCEDURE DIAGNOSIS SACROILIITIS, SACROILIAC JOINT DYSFUNCTION PROCEDURE BILATERAL SACROILIAC JOINT BLOCK SURGEON DR. DIANA BOOKER SCRAP METAL COLLECTOR NONE ANESTHESIA LOCAL PRE PROCEDURE NOTE THE PATIENT WITH HISTORY OF CHRONIC LOW BACK PAIN. I EVALUATED THE PATIENT AND REVIEWED THE CHART. I WENT OVER THE RISKS, ALTERNATIVES, AND BENEFITS ASSOCIATED WITH THIS PROCEDURE. I DISCUSSED THAT THE USE OF STEROIDS MAY CONTRIBUTE TO IMMUNOSUPPRESSION OF THE PATIENT'S BODY AGAINST INFECTIONS SUCH THE SWANSON VIRUS, COVID-19. THE PATIENT IS AWARE OF THE POTENTIAL COMPLICATIONS ASSOCIATED WITH AN INFECTION OF THIS VIRUS INCLUDING . THE PATIENT WOULD LIKE TO PROCEED AND GAVE CONSENT TO PERFORM THE PROCEDURE. THE PATIENT DENIES UNEXPLAINABLE WEIGHT LOSS, FEVER, CHILLS, OR NEW CHANGES IN URINARY OR BOWEL CONTROL. THE PATIENT IS COVID-19 NEGATIVE DESCRIPTION OF PROCEDURE THE PATIENT WAS BROUGHT TO THE PROCEDURE ROOM AND PLACED IN THE PRONE POSITION. THE LUMBOSACRAL AREA WAS CLEANED WITH CHLORAPREP SOLUTION AND DRAPED ASEPTICALLY. THE PROCEDURE WAS DONE UNDER STERILE CONDITIONS. I CHECKED LATERALITY AND THE LEVEL WHERE THE PROCEDURE WAS GOING TO BE PERFORMED WITH THE PATIENT AND THE SUPPORTING STAFF AT THE MOMENT OF THE TIME OUT IN THE PROCEDURE ROOM. UNDER FLUOROSCOPIC GUIDANCE, TARGET POINT WAS SELECTED AT THE LOWER BORDER OF THE LEFT AND RIGHT SACROILIAC JOINTS. TARGET POINT WAS SELECTED AFTER MEDIAL ROTATION AND TILT OF THE MAGNIFIER OF THE C-ARM. LIDOCAINE WAS USED TO NUMB THE SKIN AND SUBCUTANEOUS TISSUE BELOW IT. A SPINAL NEEDLE, 22-GAUGE, WAS ADVANCED UNDER FLUOROSCOPIC GUIDANCE AND FOLLOWING PATIENT FEEDBACK UNTIL THE TARGET AREA WAS TOUCHED. THE POSITION OF THE NEEDLE WAS VERIFIED WITH AP AND LATERAL VIEWS. AFTER PROPER POSITION OF THE NEEDLE WAS ACHIEVED, ISOVUE M DYE 30%, 0.25 ML, WAS INJECTED SHOWING SPREAD OF THE DYE. THEN, A SOLUTION OF 10 MG OF DEXAMETHASONE WAS INJECTED IN EACH JOINT WITH 3 ML OF BUPIVACAINE 0.125%. THERE WAS NO EVIDENCE OF BLOOD, PARESTHESIA OR CEREBROSPINAL FLUID DURING THE PROCEDURE. THE PATIENT WAS SENT TO THE RECOVERY ROOM. THE PATIENT WAS MOVING THE EXTREMITIES AND DOING WELL. THERE WAS NO COMPLICATION DURING THE PROCEDURE. FLUOROSCOPY TIME WAS 13 SECONDS POST PROCEDURE NOTE THE PROCEDURE DONE WAS DISCUSSED WITH THE PATIENT. THE PATIENT WILL BE SEEN IN A FOLLOW UP IN THE NEXT FEW WEEKS. I AM LOOKING FOR LONG LASTING PAIN RELIEF FOR THE PATIENT WITH THIS INTERVENTION. INSTRUCTIONS WERE GIVEN, QUESTIONS WERE ANSWERED, AND THE PATIENT EXPRESSED UNDERSTANDING AND AGREES WITH THE PLAN. THE PATIENT IS AWARE TO STAY HOME FOR THE NEXT WEEK, IF POSSIBLE, DUE TO COVID-19. I, EVERARDO ROMO, DOCUMENTED THE ABOVE INFORMATION ACTING A SCRIBE FOR DR. BOOKER. I HAVE REVIEWED THE ABOVE DOCUMENT, WRITTEN BY EVERARDO FISHER, SPOT MAN, AND I VERIFY THAT IT IS ACCURATE PROCEDURE CODES 80176 INJECT SACROILIAC JOINT, MODIFIERS: 50 DISPOSITION & COMMUNICATION FOLLOW UP F/UP WITH YARD HOSTLER (REASON: POST ZURDO SIJ) ELECTRONICALLY SIGNED BY DIANA BOOKER MD, MD ON 04/20/2020 AT 09:56 AM EDT DISCLAIMER : THIS IS A VISIT SUMMARY EXTRACTED FROM THE [facility] CHART. IT IS NOT A COPY OF THE [facility] PROGRESS NOTE. JORDYN
== END ==
LOC: M PAIN 08:30
PROVIDERS: ATTEND Anesthesiology
DX: M46.1 Sacroiliitis, not elsewhere classified (principal); M53.3 Sacrococcygeal disorders, not elsewhere classified; Z79.82 Long term (current) use of aspirin; Z79.891 Long term (current) use of opiate analgesic; Z79.899 Other long term (current) drug therapy; Z87.891 Personal history of nicotine dependence; Z88.0 Allergy status to penicillin
CPT/HCPCS: G0260; J1100; Q9967

== ENCOUNTER → 2020-08-30 | Outpatient (CLI) | payer OTHER ==
--- NOTE | 2020-09-02 23:37 | ECWPNPC ---
PATIENT NAME: CYNTHIA LAROSE : 1950 GENDER: FEMALE VISIT DATE: 08/30/2020 DISCHARGE DATE: 08/30/20 1213 VISIT LOCKED DATE TIME: PHYSICIAN: SHASHI NGUYEN RESOURCE: SHASHI NGUYEN REASON FOR APPOINTMENT 1. LOW BACK HISTORY OF PRESENT ILLNESS GENERAL: HERE FOR FOLLOW-UP OF CHRONIC LOW BACK PAIN. PAIN HAS BEGUN TO RETURN. PAIN IS AGGRAVATED BY WALKING OR STANDING. HAS BENEFITED FROM SACROILIAC JOINT BLOCKS IN THE PAST. RELIEF FROM THESE INJECTIONS LAST SEVERAL MONTHS. -. FALL RISK SCREENING: SCREENING :TWO OR MORE FALLS WITHOUT INJURY IN THE PAST YEAR PAIN SCREENING: PATIENT HAS A COMPLAINT OF ACUTE OR CHRONIC PAIN :YES LOCATION OF PAIN:LOW BACK, LEG(S) INTENSITY OF PAIN (SCALE OF 1 TO 10):3 WHAT DOES YOUR PAIN FEEL LIKE:ACHING DURATION:CONTINOUS NURSING NOTE: -. PAIN CENTER INTAKE QUESTIONS: DO YOU HAVE A HISTORY OF MRSA? :NO DO YOU TAKE A BLOOD THINNERS? :NO DO YOU HAVE ANY BLEEDING DISORDERS? :NO ANY NEW NUMBNESS OR WEAKNESS IN YOUR LEGS OR ARMS? :NO ANY PACEMAKER,DEFIBRILLATOR, OR DORSAL COLUMN STIMULATOR? :NO DO YOU HAVE ANY RASHES OR OPEN SORES? :NO ARE YOU ALLERGIC TO IV DYE? :NO ARE YOU DIABETIC? :NO ANY NEW PROBLEMS WITH YOUR MEDICATIONS? :NO HAVE YOU RECEIVED A VACCINE IN THE PAST 30 DAYS? :NO DO YOU PLAN TO RECEIVE A VACCINE IN THE NEXT 21 DAYS? :NO DO YOU NEED ANY PRESCRIPTION? :NO DO YOU TAKE ANY IMMUNOSUPPRESSIVE MEDICATIONS? :NO IS THERE A CHANCE YOU COULD BE ? :NO ARE YOU BREAST FEEDING? :NO CURRENT MEDICATIONS TAKING CYCLOSPORINE 0.1 % EMULSION 1 DROP INTO AFFECTED EYE OPHTHALMIC BEFORE BEDTIME, NOTES: 04/18 2100 TAKING TIMOLOL MALEATE 0.25 % SOLUTION 1 DROP INTO AFFECTED EYE OPHTHALMIC ONCE A DAY, NOTES: 04/19 600 TAKING ROPINIROLE HCL 0.5 MG TABLET 3 TABLETS 1 TO 3 HOURS BEFORE BEDTIME ORALLY ONCE A DAY, NOTES: 04/18 2100 TAKING TRAMADOL HCL 50 MG TABLET 1 TABLET NEEDED ORALLY EVERY 6 HRS, NOTES: 04/18 2100 TAKING OMEPRAZOLE 20 MG CAPSULE DELAYED RELEASE 1 CAPSULE ORALLY ONCE A DAY, NOTES: 04/19 600 TAKING OLODATEROL HCL 2.5 MCG/ACT AEROSOL SOLUTION 2 PUFFS INHALATION ONCE A DAY, NOTES: 04/18 1400 TAKING EZETIMIBE 10 MG TABLET 1 TABLET ORALLY ONCE A DAY, NOTES: 04/18 2100 TAKING ACETAMINOPHEN 500 MG TABLET 2 TABLETS ORALLY EVERY 6 HOURS NEEDED (MDD 3000 MG), NOTES: 04/19 600 TAKING CALTRATE 600 1500 (600 CA) MG TABLET 1 CAP ORALLY BID, NOTES: 04/19 600 TAKING ASPIRIN 325 MG TABLET 1 TABLET ORALLY TWICE A DAY, NOTES: 04/19 600 TAKING GABAPENTIN 300 MG CAPSULE 1 CAPSULE ORALLY TWICE A DAY, NOTES: 04/18 2100 NOT-TAKING LATANOPROST 0.005 % SOLUTION 1 DROP INTO AFFECTED EYE IN THE EVENING OPHTHALMIC ONCE A DAY, NOTES: 04/18 2100 NOT-TAKING MAY HAVE CBD OIL ORALLY BID NOT-TAKING ALBUTEROL SULFATE HFA 108 (90 BASE) MCG/ACT AEROSOL SOLUTION 2 PUFFS NEEDED INHALATION EVERY 6 HRS NOT-TAKING ATORVASTATIN CALCIUM 10 MG TABLET 1 TABLET ORALLY ONCE A DAY MEDICATION LIST REVIEWED AND RECONCILED WITH THE PATIENT PAST MEDICAL HISTORY GLAUCOMA LOW BACK PAIN ALLERGIC RHINITIS HYPERLIPIDEMIA DYSPEPSIA, DYSPHAGIA OSTEOPENIA CHOLELITHIASIS HEMORRHOIDS RECTAL MASS RESTLESS LEGS BREAST CANCER COPD OSTEOARTHRITIS ALLERGIES PENICILLIN (FOR ALLERGIES USE ONLY): JOINT PAIN - SIDE EFFECTS OXYCODONE HCL: DIZZINESS - SIDE EFFECTS HYDROCODONE BITARTRATE: DIZZINESS - SIDE EFFECTS SURGICAL HISTORY LEFT KNEE REPLACEMENT TONSILLECTOMY BILAT MASTECTOMY RIGHT SUBCLAVIAN PORT PLACED AND REMOVED CHOLECYSTECTOMY REPAIR OF FISSURE 07/2019 FISTULA REPAIR 08/2019 PARTIAL RIGHT KNEE REPLACEMENT 07/2020 FAMILY HISTORY FATHER: , NON KNOWN HISTORY MOTHER: 89 YRS 2 BROTHER(S) , 1 SISTER(S) - HEALTHY. MOTHER-ALZHEIMERS NEPHEW DUE TO THROAT CANCER. SOCIAL HISTORY GENERAL: TOBACCO USE ARE YOU A:FORMER SMOKER QUIT 10-05-2005 LATEX QUESTIONNAIRE LATEX ALLERGY : HAVE YOU EVER DEVELOPED ANY TYPE OF REACTION AFTER HANDLING LATEX PRODUCTS SUCH RUBBER GLOVES, CONDOMS, DIAPHRAGMS, BALLOONS, SOCKS, OR UNDERWEAR?NO LATEX ALLERGY : HAVE YOU EVER DEVELOPED ANY TYPE OF REACTION DURING OR AFTER DENTAL APPOINTMENT, VAGINAL/RECTAL EXAMINATION, SURGICAL PROCEDURE, OR ANY OTHER EXPOSURE?NO DATE ASKED : 04/16/2020 LATEX RISK : HAVE YOU EVER HAD ANY DIFFICULTY BREATHING OR HIVES AFTER EATING OR HANDLING ANY FRUITS, OR VEGETABLES; SUCH KIWI, BANANAS, STONE FRUITS, OR CHESTNUTSNO LATEX RISK : DO YOU HAVE A PREVIOUS PERSONAL HISTORY OF MORE THAN NINE SURGERIES, SPINA BIFIDA, OR REPEATED CATHERIZATIONS? NO LATEX RISK : ARE YOU FREQUENTLY EXPOSED TO LATEX PRODUCTS IN YOUR OCCUPATION?NO ALCOHOL SCREENING DID YOU HAVE A DRINK CONTAINING ALCOHOL IN THE PAST YEAR?NO POINTS0 INTERPRETATIONNEGATIVE RECREATIONAL DRUG USE DRUG USE?NO MORMONISM [id number] OTHER LANGUAGE LANGUAGES SPOKEN:PERUVIAN EDUCATION LEVEL OF EDUCATION:FINISHED COLLEGE ASSOCIATES DEGREE LEARNING BARRIERS / SPECIAL NEEDS BARRIERS TO LEARNING?NO HEARING IMPAIRED?NO VISION IMPAIRED?YES COGNITIVELY IMPAIRED?NO :CORRECTIVE LENSES READINESS TO LEARN?YES LEARNING PREFERENCES?NO LEARNING CAPABILITIES PRESENT?YES EMOTIONAL BARRIERS?NO SPECIAL DEVICES?YES :CANE CAFE ASSISTANT 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 DIET: REGULAR. EXERCISE: NONE. MARITAL STATUS: SINGLE. NEW PATIENT PAIN DIARY TODAY'S VISIT 03/16/20 PATIENT DESCRIBES PAIN :ACHING, HAVE IT ALL THE TIME, STABBING, TENDER, SORE, SHOOTING FROM 0-10, WHAT LEVEL IS YOUR PAIN TODAY?6 PRECIPITATING FACTORS WALKING ALOT. GOING UP AND DOWN STAIRS, LIFTING AND HELPING HER HOUSE MATE, DAMP WEATHER ALLEVIATING FACTORS HEAT, REST IMPACT ON FUNCTION LIMITS HER ON WHAT SHE IS ABLE TO DO PAIN CLINIC PFS, CLERGY, PUBLIC HEALTH REFERRALS HAS THE PATIENT BEEN EDUCATED REGARDING HIS/HER PLAN OF CARE?YES HAS THE PATIENT BEEN EDUCATED REGARDING PAIN, THE RISK FOR PAIN, THE IMPORTANCE OF EFFECTIVE PAIN MANAGEMENT, AND THE PAIN ASSESSMENT PROCESS?YES ADVANCE DIRECTIVE ADVANCE DIRECTIVE DISCUSSED WITH PATIENT:YES HCP ON FILE @[facility] EDarryn GUTIERREZ [phone] & ELBA LAROSE (SISTER) [phone] (HOME), (CELL) 03/16/2020 PRE-APPROINTMENT CALL COMPLETED. HOSPITALIZATION/MAJOR DIAGNOSTIC PROCEDURE SURGERIES REVIEW OF SYSTEMS REVIEWED BY: PROVIDER: SHASHI ALEJANDRA . CONSTITUTIONAL: ANY CHANGE IN YOUR MEDICAL CONDITION? NO . CHILLS NO . FEVER NO . INFECTION: DO YOU HAVE NEW INFECTIONS? NO . DO YOU HAVE HISTORY OF MRSA? NO . MUSCULOSKELETAL: ANY UNUSUAL JOINT PAIN OR SWELLING NOT MENTIONED NO . GASTROENTEROLOGY: ANY NEW CHANGE IN BOWEL CONTROL? NO . GENITOURINARY: ANY NEW CHANGE IN BLADDER CONTROL? NO . IS THERE A CHANCE YOU COULD BE ? NO . HEMATOLOGY/LYMPH: DO YOU TAKE ANY BLOOD THINNERS? (FOR EXAMPLE- COUMADIN, PLAVIX, AGGRENOX, PLATEL, PRADAXA, OR XARELTO) NO . WHEN WAS YOUR LAST DOSE? DATE: TIME: . NEUROLOGY: HAVE YOU FALLEN IN THE PAST 12 MONTHS? YES, A COUPLE OF TIMES-WAS TRIPPED UP BY THE DOG-NO INJURY-NOT EVALUATED AFTER . OTHER NEW NUMBNESS OR PAIN PATTERNS NOT MENTIONED NO . CARDIOLOGY: DO YOU HAVE A PACEMAKER OR DEFIBRILLATOR? NO . RESPIRATORY: HAVE YOU BEEN SICK IN THE PAST WEEK? NO . FEVER NO . FLU LIKE SYMPTOMS? NO . COUGH NO . INTEGUMENTARY: DO YOU HAVE ANY RASHES OR OPEN SORES? NO . ALLERGIC/IMMUNO: ARE YOU ALLERGIC TO IV DYE? NO . ANY NEW ALLERGIES? NO . PSYCHIATRIC: DO YOU HAVE THOUGHTS OF HURTING YOURSELF OR SOMEONE ELSE? NO . ARE YOU ABUSED, NEGLECTED, OR IN AN UNSAFE ENVIRONMENT? NO . ENDOCRINOLOGY: ARE YOU DIABETIC? NO . OTHER: DO YOU NEED ANY PRESCRIPTIONS? NO . IF YES, PLEASE LIST: ____ . ANY NEW PROBLEMS WITH YOUR MEDICATIONS? NO . WHEN DID YOU LAST EAT? ____ . WHEN DID YOU LAST DRINK? ____ . WHAT DID YOU LAST DRINK? ____ . NAME OF PERSON DRIVING YOU HOME? ____ . DO YOU HAVE ANY OTHER QUESTIONS OR CONCERNS NO . VITAL SIGNS WT 220.4 LBS, HT 69 IN, BMI 32.54 INDEX, BP 113/69 MM HG, HR 89 /MIN, RR 16 /MIN, TEMP 97.1 F, OXYGEN SAT % 96%, SAFE IN ENV? (Y/N) YES, REVIEWED BY: [place]. EXAMINATION GENERAL EXAMINATION: GENERAL AWAKE,ALERT ,PLEAASANT . PSYCH AFFECT NORMAL . NECK:TRACHEA MIDLINE. NO CERVICAL OR SUPRACLAVICULAR LYMPHADENOPATHY NOTED. LUNGS: LUNG NAIR ARE CLEAR TO AUSCULTATION BILATERALLY. GOOD MOVEMENT OF AIR . HEART: S1, S2 IN A REGULAR RATE AND RHYTHM. NO SIGNIFICANT MURMURS, RUBS OR GALLOPS NOTED . MUSCULOSKELETAL:MUSCLE STRENGTH TESTING 5/5 BILATERAL LOWER EXTREMITIES , PALPATION: POSITIVE FOR PAIN OVER L/S SPINE. POSITIVE FOR PAIN OVER L/S PARSPINALS SPECIFIC POINT TENDERNESS OVER BILATERAL SIJ. NEUROLOGIC EXAM:NORMAL SENSATION TO LIGHT TOUCH LOWER EXTREMITIES. DIAGNOSTIC:MRI L/S [id number]-REVIEWED. ASSESSMENTS SACROILIITIS, NOT ELSEWHERE CLASSIFIED - M46.1 (PRIMARY) TREATMENT SACROILIITIS, NOT ELSEWHERE CLASSIFIED NOTES: BILAT. SIJ. PROCEDURE CODES FA211 ESTABILISHED PATIENT [facility] CHARGE DISPOSITION & COMMUNICATION FOLLOW UP POST PROC (REASON: BILAT. SIJ) ELECTRONICALLY SIGNED BY JUSTYN BOTELLO ON 09/02/2020 AT 02:13 PM EDT DISCLAIMER : THIS IS A VISIT SUMMARY EXTRACTED FROM THE [facility] CHART. IT IS NOT A COPY OF THE [employer] PROGRESS NOTE. MTDD
== END ==
LOC: M PAIN 11:00
PROVIDERS: ATTEND Nurse Practitioner Family
DX: M46.1 Sacroiliitis, not elsewhere classified (principal); H40.9 Unspecified glaucoma; E78.5 Hyperlipidemia, unspecified; G25.81 Restless legs syndrome; J44.9 Chronic obstructive pulmonary disease, unspecified; Z87.891 Personal history of nicotine dependence; Z79.82 Long term (current) use of aspirin; Z79.899 Other long term (current) drug therapy; Z88.0 Allergy status to penicillin; Z88.5 Allergy status to narcotic agent

== ENCOUNTER → 2020-09-02 | Outpatient (CLI) | payer OTHER | LOC: M LABSMTC 10:05 | PROVIDERS: ATTEND Anesthesiology | DX: Z20.828 Contact with and (suspected) exposure to other viral communicable diseases (principal) | CPT/HCPCS: C9803; U0003 ==

== ENCOUNTER → 2020-09-07 | Outpatient (CLI) | payer OTHER ==
[~2020-09-07] MED LIST changes: +TRIAMCINOLONE ACETONIDE SUSP 40 MG/ML VIAL (J3301) As Ordered ONE; -dexameTHASONE 10MG/1ML VIAL PRES.FREE (J1100 PER 1MG) As Ordered ONE
--- NOTE | 2020-09-07 13:15 | REP ---
INDICATION: BILATERAL SACRO ILIAC JOINT INJECTION. Pain COMPARISON: 04/19/2020 TECHNIQUE: Four C arm views bilateral sacroiliac joints performed during bilateral sacroiliac joint injections. FINDINGS: A needle overlies each sacroiliac joint. A small amount of contrast was injected. IMPRESSION: 26 seconds of fluoroscopy time was utilized. <Electronically signed by Roby Isbell > 09/07/20 [id number]
--- NOTE | 2020-09-13 16:33 | ECWPNPC ---
PATIENT NAME: CYNTHIA LAROSE : 1950 GENDER: FEMALE VISIT DATE: 09/07/2020 DISCHARGE DATE: 09/07/201313 VISIT LOCKED DATE TIME: PHYSICIAN: DIANA BOOKER MD RESOURCE: DIANA BOOKER MD REASON FOR APPOINTMENT 1. BILATERAL SIJ HISTORY OF PRESENT ILLNESS GENERAL: -. FALL RISK SCREENING: SCREENING :ONE FALL WITHOUT INJURY IN THE PAST YEAR PAIN SCREENING: PATIENT HAS A COMPLAINT OF ACUTE OR CHRONIC PAIN :YES LOCATION OF PAIN:LOW BACK INTENSITY OF PAIN (SCALE OF 1 TO 10):5 WHAT DOES YOUR PAIN FEEL LIKE:ACHING, CONTINOUS, STABBING DURATION:CONTINOUS, CONSTANT PAIN IS INCREASED BY:OTHERS LIFTING PAIN IS DECREASED BY:USE OF PAIN MEDICATIONS ADL'S, WALKING TREATMENT/MEDICATIONS USED TO MANAGE PAIN:OTC PAIN RELIEVERS, OPIOIDS LEVEL OF RELIEF FROM PAIN TREATMENTS IN THE PAST:75% PAIN HAS INTERFERED WITH THE FOLLOWING:BATHING/DRESSING, WALKING ABILITY, HOUSEWORK, SLEEP, TRANSPORTATION NURSING NOTE: -. PAIN CENTER INTAKE QUESTIONS: DO YOU HAVE A HISTORY OF MRSA? :NO DO YOU TAKE A BLOOD THINNERS? :NO DO YOU HAVE ANY BLEEDING DISORDERS? :NO ANY NEW NUMBNESS OR WEAKNESS IN YOUR LEGS OR ARMS? :YES BILATR LEG NUMBNESS ANY PACEMAKER,DEFIBRILLATOR, OR DORSAL COLUMN STIMULATOR? :NO DO YOU HAVE ANY RASHES OR OPEN SORES? :NO ARE YOU ALLERGIC TO IV DYE? :NO ARE YOU DIABETIC? :NO ANY NEW PROBLEMS WITH YOUR MEDICATIONS? :NO HAVE YOU RECEIVED A VACCINE IN THE PAST 30 DAYS? :NO DO YOU PLAN TO RECEIVE A VACCINE IN THE NEXT 21 DAYS? :NO DO YOU TAKE ANY IMMUNOSUPPRESSIVE MEDICATIONS? :NO ANY HISTORY OF SEIZURES? :NO ANY HISTORY OF CARDIAC ISSUES OR EVENTS? :NO DO YOU HAVE SLEEP APNEA? :NO ANY RECENT HEAD INJURY? :NO DO YOU HAVE ANY NEW INFECTIONS? :NO IS THERE A CHANCE YOU COULD BE ? :NO ARE YOU BREAST FEEDING? :NO WHEN DID YOU LAST EAT? : -09/06/202029 WHEN DID YOU LAST DRINK? : -09/07/20 09 WHAT DID YOU LAST DRINK? : -BLACK COFFEE NAME OF PERSON DRIVING YOU HOME? : -BERNARD DO YOU HAVE ANY OTHER QUESTIONS OR CONCERNS? : -NO CURRENT MEDICATIONS TAKING CYCLOSPORINE 0.1 % EMULSION 1 DROP INTO AFFECTED EYE OPHTHALMIC BEFORE BEDTIME, NOTES: 10/19/20 2100 TAKING TIMOLOL MALEATE 0.25 % SOLUTION 1 DROP INTO AFFECTED EYE OPHTHALMIC ONCE A DAY, NOTES: 09/07/20699 TAKING ROPINIROLE HCL 0.5 MG TABLET 3 TABLETS 1 TO 3 HOURS BEFORE BEDTIME ORALLY ONCE A DAY, NOTES: 09/06/202099 TAKING TRAMADOL HCL 50 MG TABLET 1 TABLET NEEDED ORALLY EVERY 6 HRS, NOTES: 09/06/202099 TAKING OMEPRAZOLE 20 MG CAPSULE DELAYED RELEASE 1 CAPSULE ORALLY ONCE A DAY, NOTES: 09/07/20699 TAKING OLODATEROL HCL 2.5 MCG/ACT AEROSOL SOLUTION 2 PUFFS INHALATION ONCE A DAY, NOTES: 09/06/20 1400 TAKING EZETIMIBE 10 MG TABLET 1 TABLET ORALLY ONCE A DAY, NOTES: 09/06/202099 TAKING ACETAMINOPHEN 500 MG TABLET 2 TABLETS ORALLY EVERY 6 HOURS NEEDED (MDD 3000 MG), NOTES: TAKING CALTRATE 600 1500 (600 CA) MG TABLET 1 CAP ORALLY BID, NOTES: 09/07/20699 TAKING ASPIRIN 81 MG TABLET CHEWABLE 1 TABLET ORALLY TWICE A DAY, NOTES: 09/07/20699 TAKING GABAPENTIN 300 MG CAPSULE 1 CAPSULE ORALLY TWICE A DAY, NOTES: 09/07/20699 NOT-TAKING LATANOPROST 0.005 % SOLUTION 1 DROP INTO AFFECTED EYE IN THE EVENING OPHTHALMIC ONCE A DAY NOT-TAKING MAY HAVE CBD OIL ORALLY BID NOT-TAKING ALBUTEROL SULFATE HFA 108 (90 BASE) MCG/ACT AEROSOL SOLUTION 2 PUFFS NEEDED INHALATION EVERY 6 HRS NOT-TAKING ATORVASTATIN CALCIUM 10 MG TABLET 1 TABLET ORALLY ONCE A DAY MEDICATION LIST REVIEWED AND RECONCILED WITH THE PATIENT PAST MEDICAL HISTORY GLAUCOMA LOW BACK PAIN ALLERGIC RHINITIS HYPERLIPIDEMIA DYSPEPSIA, DYSPHAGIA OSTEOPENIA CHOLELITHIASIS HEMORRHOIDS RECTAL MASS RESTLESS LEGS BREAST CANCER COPD OSTEOARTHRITIS ALLERGIES PENICILLIN (FOR ALLERGIES USE ONLY): JOINT PAIN - SIDE EFFECTS OXYCODONE HCL: DIZZINESS - SIDE EFFECTS HYDROCODONE BITARTRATE: DIZZINESS - SIDE EFFECTS SURGICAL HISTORY LEFT KNEE REPLACEMENT TONSILLECTOMY BILAT MASTECTOMY (LEFT RADICAL WITH NODES, RIGHT NO NODES REMOVED) RIGHT SUBCLAVIAN PORT PLACED AND REMOVED CHOLECYSTECTOMY REPAIR OF FISSURE 07/2019 FISTULA REPAIR 08/2019 PARTIAL RIGHT KNEE REPLACEMENT 07/2020 FAMILY HISTORY FATHER: , NON KNOWN HISTORY MOTHER: 89 YRS 2 BROTHER(S) , 1 SISTER(S) - HEALTHY. MOTHER-ALZHEIMERS NEPHEW DUE TO THROAT CANCER. SOCIAL HISTORY GENERAL: TOBACCO USE ARE YOU A:FORMER SMOKER QUIT 10-05-2005 LATEX QUESTIONNAIRE LATEX ALLERGY : HAVE YOU EVER DEVELOPED ANY TYPE OF REACTION AFTER HANDLING LATEX PRODUCTS SUCH RUBBER GLOVES, CONDOMS, DIAPHRAGMS, BALLOONS, SOCKS, OR UNDERWEAR?NO LATEX ALLERGY : HAVE YOU EVER DEVELOPED ANY TYPE OF REACTION DURING OR AFTER DENTAL APPOINTMENT, VAGINAL/RECTAL EXAMINATION, SURGICAL PROCEDURE, OR ANY OTHER EXPOSURE?NO LATEX RISK : HAVE YOU EVER HAD ANY DIFFICULTY BREATHING OR HIVES AFTER EATING OR HANDLING ANY FRUITS, OR VEGETABLES; SUCH KIWI, BANANAS, STONE FRUITS, OR CHESTNUTSNO LATEX RISK : DO YOU HAVE A PREVIOUS PERSONAL HISTORY OF MORE THAN NINE SURGERIES, SPINA BIFIDA, OR REPEATED CATHERIZATIONS? NO LATEX RISK : ARE YOU FREQUENTLY EXPOSED TO LATEX PRODUCTS IN YOUR OCCUPATION?NO DATE ASKED : 09/07/2020 ALCOHOL SCREENING DID YOU HAVE A DRINK CONTAINING ALCOHOL IN THE PAST YEAR?NO POINTS0 INTERPRETATIONNEGATIVE RECREATIONAL DRUG USE DRUG USE?NO MORMONISM [id number] OTHER LANGUAGE LANGUAGES SPOKEN:[place] EDUCATION LEVEL OF EDUCATION:FINISHED COLLEGE ASSOCIATES DEGREE LEARNING BARRIERS / SPECIAL NEEDS BARRIERS TO LEARNING?NO HEARING IMPAIRED?NO VISION IMPAIRED?YES COGNITIVELY IMPAIRED?NO :CORRECTIVE LENSES READINESS TO LEARN?YES LEARNING PREFERENCES?NO LEARNING CAPABILITIES PRESENT?YES EMOTIONAL BARRIERS?NO SPECIAL DEVICES?YES :CANE ANGIOGRAPHER 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 DIET: REGULAR. EXERCISE: NONE. MARITAL STATUS: SINGLE. NEW PATIENT PAIN DIARY TODAY'S VISIT 03/16/20, PATIENT DESCRIBES PAIN : ACHING, HAVE IT ALL THE TIME, STABBING, TENDER, SORE, SHOOTING, FROM 0-10, WHAT LEVEL IS YOUR PAIN TODAY? 6, PRECIPITATING FACTORS WALKING ALOT. GOING UP AND DOWN STAIRS, LIFTING AND HELPING HER HOUSE MATE, DAMP WEATHER, ALLEVIATING FACTORS HEAT, REST, IMPACT ON FUNCTION LIMITS HER ON WHAT SHE IS ABLE TO DO. PAIN CLINIC PFS, CLERGY, PUBLIC HEALTH REFERRALS HAS THE PATIENT BEEN EDUCATED REGARDING HIS/HER PLAN OF CARE?YES HAS THE PATIENT BEEN EDUCATED REGARDING PAIN, THE RISK FOR PAIN, THE IMPORTANCE OF EFFECTIVE PAIN MANAGEMENT, AND THE PAIN ASSESSMENT PROCESS?YES ADVANCE DIRECTIVE ADVANCE DIRECTIVE DISCUSSED WITH PATIENT:YES HCP ON FILE @[facility] ELBA LAROSE (SISTER) [phone] (HOME), (CELL) HOSPITALIZATION/MAJOR DIAGNOSTIC PROCEDURE SURGERIES VITAL SIGNS WT 220.2 LBS, HT 69 IN, BMI 32.51 INDEX, BP 128/80 MM HG, HR 84 /MIN, RR 18 /MIN, TEMP 97.4 F, OXYGEN SAT % 97%, SAFE IN ENV? (Y/N) Y, NA INITIALS SC 11:02, REVIEWED BY: LS. EXAMINATION GENERAL EXAMINATION: THE PATIENT IS ALERT, ORIENTED TIMES THREE AND COOPERATIVE. HEART SHOWS REGULAR RHYTHM, NO MURMURS AND NO GALLOPS. LUNGS ARE CLEAR TO AUSCULTATION. ASSESSMENTS SACROILIITIS, NOT ELSEWHERE CLASSIFIED - M46.1 (PRIMARY), RISK: (NULL) SACROILIAC JOINT DYSFUNCTION - M53.3 TREATMENT SACROILIITIS, NOT ELSEWHERE CLASSIFIED [facility] FLUORO GUIDANCE (PAIN)[id number] NOTES: 09/06/20 ANN MARIE MALLORY ARCHITECTURAL DESIGN LECTURER. SACROILIAC JOINT DYSFUNCTION [facility] FLUORO GUIDANCE (PAIN)[id number] PROCEDURES PAIN NURSING RECORD PRE-PROCEDURE IV SITE N/A, PRE-PROCEDURE ORAL MEDICATIONS NO PRESEDATE PER PATIENT REQUEST PROCEDURE IN ROOM 1233, PHYSICIAN IN ROOM 1243, START 1246, FINISH 1252, PHYSICIAN OUT OF ROOM 1254, OUT OF ROOM 1301, STEROID KENALOG 80 MG, O2 RA, ECG NORMAL SINUS, PATIENT SHIELDED YES, SAFETY STRAP YES, PREP CHLOROPREP, IV INFUSED N/A, DRESSING TEGADERM MD BOOKER LOC: 1. ALERT, ORIENTED RESP: 1. REGULAR, NO DYSPNEA COLOR: 1. PINK SKIN: 1. WARM, DRY POSITION: 1. PRONE VITALS: RAMIREZ TRONCOSO 09/07/2020 12:45:01 PM > 138/70 84 18 98% , RAMIREZ TRONCOSO 09/07/2020 1:06:38 PM > 134/62 HR 80 18 97% DISCHARGE: DRESSING SITE DRY AND INTACT, IV N/A, GAIT STEADY, TEACHING COMPLETED, PATIENT ACKNOWLEDGES UNDERSTANDING YES, PATIENT DISCHARGED AT 1312 PN SI PRE PROCEDURE DIAGNOSIS SACROILIITIS, SACROILIAC JOINT DYSFUNCTION POST PROCEDURE DIAGNOSIS SACROILIITIS, SACROILIAC JOINT DYSFUNCTION PROCEDURE BILATERAL SACROILIAC JOINT BLOCK SURGEON DR. DIANA BOOKER HEAD CHARGER NONE ANESTHESIA LOCAL PRE PROCEDURE NOTE THE PATIENT WITH HISTORY OF CHRONIC LOW BACK PAIN. I EVALUATED THE PATIENT AND REVIEWED THE CHART. I WENT OVER THE RISKS, ALTERNATIVES, AND BENEFITS ASSOCIATED WITH THIS PROCEDURE. I DISCUSSED THAT THE USE OF STEROIDS MAY CONTRIBUTE TO IMMUNOSUPPRESSION OF THE PATIENT'S BODY AGAINST INFECTIONS SUCH COVID-19. THE PATIENT IS AWARE OF THE POTENTIAL COMPLICATIONS ASSOCIATED WITH THIS VIRUS, INCLUDING, BUT NOT LIMITED TO, . THE PATIENT WOULD LIKE TO PROCEED AND GAVE CONSENT TO PERFORM THE PROCEDURE. THE PATIENT DENIES UNEXPLAINABLE WEIGHT LOSS, FEVER, CHILLS, OR NEW CHANGES IN URINARY OR BOWEL CONTROL. THE PATIENT IS COVID-19 NEGATIVE DESCRIPTION OF PROCEDURE THE PATIENT WAS BROUGHT TO THE PROCEDURE ROOM AND PLACED IN THE PRONE POSITION. THE LUMBOSACRAL AREA WAS CLEANED WITH CHLORAPREP SOLUTION AND DRAPED ASEPTICALLY. THE PROCEDURE WAS DONE UNDER STERILE CONDITIONS. A TIMEOUT WAS PERFORMED WHERE LATERALITY AND THE SITE OF THE PROCEDURE WERE CHECKED AND CONFIRMED WITH EVERYONE IN THE ROOM. UNDER FLUOROSCOPIC GUIDANCE, THE TARGET POINT WAS SELECTED AT THE LOWER BORDER OF THE RIGHT AND LEFT SACROILIAC JOINT. TARGET POINT WAS SELECTED AFTER MEDIAL ROTATION AND TILT OF THE MAGNIFIER OR THE C-ARM. I CONFIRMED AGAIN WITH EVERYONE IN THE ROOM THE LATERALITY OF THE TARGET AT 1247 ON THE LEFT AND 1249 ON THE RIGHT. LIDOCAINE 0.5% WAS USED TO NUMB THE SKIN AND THE SUBCUTANEOUS TISSUE BELOW IT. SPINAL NEEDLES, 22-GAUGE, WERE ADVANCED UNDER FLUOROSCOPIC GUIDANCE AND FOLLOWING PATIENT FEEDBACK UNTIL THE TARGETS WERE TOUCHED. THE POSITION OF THE NEEDLES WAS VERIFIED WITH AP AND OBLIQUE VIEWS. AFTER PROPER POSITION OF THE NEEDLES WAS ACHIEVED, ISOVUE-M DYE 30%, 0.1 ML, WAS INJECTED SHOWING ADEQUATE SPREAD OF THE DYE. KENALOG 40 MG WAS INJECTED AT EACH SITE. THEN, A SOLUTION OF 3.0 ML OF BUPIVACAINE 0.125% WAS USED TO FLUSH EACH NEEDLE. THE MEDICATIONS WERE VERIFIED WITH THE NURSE. THERE WAS NO EVIDENCE OF BLOOD, PARESTHESIA OR CEREBROSPINAL FLUID DURING THE PROCEDURE. THE PATIENT WAS SENT TO THE RECOVERY ROOM. THE PATIENT WAS MOVING THE EXTREMITIES AND DOING WELL. THERE WERE NO COMPLICATIONS DURING THE PROCEDURE. ESTIMATED BLOOD LOSS WAS LESS THAN 5 ML. FLUOROSCOPIC TIME WAS 26 SECONDS. POST PROCEDURE NOTE THE PROCEDURE DONE WAS DISCUSSED WITH THE PATIENT. THE PATIENT WILL BE SEEN IN A FOLLOW UP IN THE NEXT FEW WEEKS. I AM LOOKING FOR LONG LASTING PAIN RELIEF FOR THE PATIENT WITH THIS INTERVENTION. INSTRUCTIONS WERE GIVEN, QUESTIONS WERE ANSWERED, AND THE PATIENT EXPRESSED UNDERSTANDING AND AGREES WITH THE PLAN. I, EVERARDO FISHER, DOCUMENTED THE ABOVE INFORMATION ACTING A SCRIBE FOR DR. BOOKER. I HAVE REVIEWED THE ABOVE DOCUMENT, WRITTEN BY EVERARDO FISHER, EXTRUSION LINE OPERATOR, AND I VERIFY THAT IT IS ACCURATE PROCEDURE CODES 30045 INJECT SACROILIAC JOINT, MODIFIERS: 50 DISPOSITION & COMMUNICATION FOLLOW UP FOLLOW UP WITH RN TRANSPLANT (REASON: POST BILATERAL SIJ) ELECTRONICALLY SIGNED BY DIANA BOOKER MD, MD ON 09/13/2020 AT 01:19 PM EDT DISCLAIMER : THIS IS A VISIT SUMMARY EXTRACTED FROM THE [employer] CHART. IT IS NOT A COPY OF THE [employer] PROGRESS NOTE. JORDYN
== END ==
LOC: M PAIN 11:00
PROVIDERS: ATTEND Anesthesiology
DX: M46.1 Sacroiliitis, not elsewhere classified (principal); M53.3 Sacrococcygeal disorders, not elsewhere classified; G25.81 Restless legs syndrome; J44.9 Chronic obstructive pulmonary disease, unspecified; Z96.653 Presence of artificial knee joint, bilateral; Z87.891 Personal history of nicotine dependence; Z88.0 Allergy status to penicillin; Z88.5 Allergy status to narcotic agent; Z79.82 Long term (current) use of aspirin; Z79.899 Other long term (current) drug therapy
CPT/HCPCS: G0260; J3301; Q9967

== ENCOUNTER → 2020-09-24 | Outpatient (CLI) | payer OTHER ==
[~2020-09-24] MED LIST changes: +ASPI81TA26 PO; -BUPIVACAINE HCL 0.25% 30ML VIAL As Ordered ONE; +CALTCHW5 PO; +CELE1CAP7 PO; +CYCL-707 PO; +EZET10TA21 PO; +GABA-843 PO; -ISOVUE-M 300 61% 15ML VIAL As Ordered ONE; +LIDO5TD TOP; -LIDOCAINE 1% SDV 30ML VIAL As Ordered ONE; +OMEP1CAP73 PO; +ROPI0.5T3 PO; +STRI1AER2 INH; +TIMOXEOPD OU; +TRAM50TA2 PO; -TRIAMCINOLONE ACETONIDE SUSP 40 MG/ML VIAL (J3301) As Ordered ONE
--- NOTE | 2020-09-28 23:34 | ECWPNPC ---
PATIENT NAME: CYNTHIA LAROSE : 1950 GENDER: FEMALE VISIT DATE: 09/24/2020 DISCHARGE DATE: 09/24/20 1436 VISIT LOCKED DATE TIME: PHYSICIAN: SHASHI NGUYEN RESOURCE: SHASHI NGUYEN REASON FOR APPOINTMENT 1. POST BILAT SIJ HISTORY OF PRESENT ILLNESS GENERAL: -. FALL RISK SCREENING: SCREENING :NO FALLS REPORTED IN THE LAST YEAR PAIN SCREENING: PATIENT HAS A COMPLAINT OF ACUTE OR CHRONIC PAIN :YES INTENSITY OF PAIN (SCALE OF 1 TO 10):0 NURSING NOTE: -. PAIN CENTER INTAKE QUESTIONS: DO YOU HAVE A HISTORY OF MRSA? :NO DO YOU TAKE A BLOOD THINNERS? :NO DO YOU HAVE ANY BLEEDING DISORDERS? :NO ANY NEW NUMBNESS OR WEAKNESS IN YOUR LEGS OR ARMS? :NO ANY PACEMAKER,DEFIBRILLATOR, OR DORSAL COLUMN STIMULATOR? :NO DO YOU HAVE ANY RASHES OR OPEN SORES? :NO ARE YOU ALLERGIC TO IV DYE? :NO ARE YOU DIABETIC? :NO ANY NEW PROBLEMS WITH YOUR MEDICATIONS? :NO HAVE YOU RECEIVED A VACCINE IN THE PAST 30 DAYS? :NO DO YOU PLAN TO RECEIVE A VACCINE IN THE NEXT 21 DAYS? :YES IF SO WHAT VACCINE AND WHEN? FLU VACCINE DO YOU NEED ANY PRESCRIPTION? :NO DO YOU TAKE ANY IMMUNOSUPPRESSIVE MEDICATIONS? :NO IS THERE A CHANCE YOU COULD BE ? :NO ARE YOU BREAST FEEDING? :NO HISTORY OF PRESENT ILLNESS: HERE FOR F/U OF CHRONIC LBP.HAD BILAT SIJ 09/07/2020 .REPORTING >80% REDUCTION IN PAIN THAT CONTINUES TODAY.RATING PAIN VAS 0/10.DOING WELL. PAIN THE PATIENT DESCRIBES THE PAIN... CURRENT MEDICATIONS TAKING CYCLOSPORINE 0.1 % EMULSION 1 DROP INTO AFFECTED EYE OPHTHALMIC BEFORE BEDTIME TAKING TIMOLOL MALEATE 0.25 % SOLUTION 1 DROP INTO AFFECTED EYE OPHTHALMIC ONCE A DAY TAKING ROPINIROLE HCL 0.5 MG TABLET .15MG 3 TABLETS 1 TO 3 HOURS BEFORE BEDTIME ORALLY ONCE A DAY TAKING OMEPRAZOLE 20 MG CAPSULE DELAYED RELEASE 1 CAPSULE ORALLY ONCE A DAY TAKING OLODATEROL HCL 2.5 MCG/ACT AEROSOL SOLUTION 2 PUFFS INHALATION ONCE A DAY TAKING EZETIMIBE 10 MG TABLET 1 TABLET ORALLY ONCE A DAY TAKING ACETAMINOPHEN 500 MG TABLET 2 TABLETS ORALLY EVERY 6 HOURS NEEDED (MDD 3000 MG) TAKING CALTRATE 600 1500 (600 CA) MG TABLET 1 CAP ORALLY BID TAKING ASPIRIN 81 MG TABLET CHEWABLE 1 TABLET ORALLY TWICE A DAY TAKING GABAPENTIN 300 MG CAPSULE 1 CAPSULE ORALLY TWICE A DAY TAKING CELEBREX 100 MG CAPSULE 1 CAPSULE WITH FOOD ORALLY BID TAKING LIDOCAINE & ADHESIVE SHEET 5 % KIT DIRECTED EXTERNALLY PRN TAKING CYCLOBENZAPRINE HCL 10 MG TABLET 1 TABLET AT BEDTIME NEEDED ORALLY ONCE A DAY PRN NOT-TAKING TRAMADOL HCL 50 MG TABLET 1 TABLET NEEDED ORALLY EVERY 6 HRS NOT-TAKING LATANOPROST 0.005 % SOLUTION 1 DROP INTO AFFECTED EYE IN THE EVENING OPHTHALMIC ONCE A DAY NOT-TAKING MAY HAVE CBD OIL ORALLY BID NOT-TAKING ALBUTEROL SULFATE HFA 108 (90 BASE) MCG/ACT AEROSOL SOLUTION 2 PUFFS NEEDED INHALATION EVERY 6 HRS NOT-TAKING ATORVASTATIN CALCIUM 10 MG TABLET 1 TABLET ORALLY ONCE A DAY MEDICATION LIST REVIEWED AND RECONCILED WITH THE PATIENT PAST MEDICAL HISTORY GLAUCOMA LOW BACK PAIN ALLERGIC RHINITIS HYPERLIPIDEMIA DYSPEPSIA, DYSPHAGIA OSTEOPENIA CHOLELITHIASIS HEMORRHOIDS RECTAL MASS RESTLESS LEGS BREAST CANCER COPD OSTEOARTHRITIS ALLERGIES PENICILLIN (FOR ALLERGIES USE ONLY): JOINT PAIN - SIDE EFFECTS OXYCODONE HCL: DIZZINESS - SIDE EFFECTS HYDROCODONE BITARTRATE: DIZZINESS - SIDE EFFECTS SURGICAL HISTORY LEFT KNEE REPLACEMENT TONSILLECTOMY BILAT MASTECTOMY (LEFT RADICAL WITH NODES, RIGHT NO NODES REMOVED) RIGHT SUBCLAVIAN PORT PLACED AND REMOVED CHOLECYSTECTOMY REPAIR OF FISSURE 07/2019 FISTULA REPAIR 08/2019 PARTIAL RIGHT KNEE REPLACEMENT 07/2020 FAMILY HISTORY FATHER: , NON KNOWN HISTORY MOTHER: 89 YRS 2 BROTHER(S) , 1 SISTER(S) - HEALTHY. MOTHER-ALZHEIMERS NEPHEW DUE TO THROAT CANCER. SOCIAL HISTORY GENERAL: TOBACCO USE ARE YOU A:FORMER SMOKER QUIT 10-05-2005 LATEX QUESTIONNAIRE LATEX ALLERGY : HAVE YOU EVER DEVELOPED ANY TYPE OF REACTION AFTER HANDLING LATEX PRODUCTS SUCH RUBBER GLOVES, CONDOMS, DIAPHRAGMS, BALLOONS, SOCKS, OR UNDERWEAR?NO LATEX ALLERGY : HAVE YOU EVER DEVELOPED ANY TYPE OF REACTION DURING OR AFTER DENTAL APPOINTMENT, VAGINAL/RECTAL EXAMINATION, SURGICAL PROCEDURE, OR ANY OTHER EXPOSURE?NO LATEX RISK : HAVE YOU EVER HAD ANY DIFFICULTY BREATHING OR HIVES AFTER EATING OR HANDLING ANY FRUITS, OR VEGETABLES; SUCH KIWI, BANANAS, STONE FRUITS, OR CHESTNUTSNO LATEX RISK : DO YOU HAVE A PREVIOUS PERSONAL HISTORY OF MORE THAN NINE SURGERIES, SPINA BIFIDA, OR REPEATED CATHERIZATIONS? NO LATEX RISK : ARE YOU FREQUENTLY EXPOSED TO LATEX PRODUCTS IN YOUR OCCUPATION?NO DATE ASKED : 09/21/2020 ALCOHOL SCREENING DID YOU HAVE A DRINK CONTAINING ALCOHOL IN THE PAST YEAR?NO POINTS0 INTERPRETATIONNEGATIVE RECREATIONAL DRUG USE DRUG USE?NO PROTESTANT [id number] OTHER LANGUAGE LANGUAGES SPOKEN:NEPALESE EDUCATION LEVEL OF EDUCATION:FINISHED [employer] LEARNING BARRIERS / SPECIAL NEEDS BARRIERS TO LEARNING?NO HEARING IMPAIRED?NO VISION IMPAIRED?YES COGNITIVELY IMPAIRED?NO :CORRECTIVE LENSES READINESS TO LEARN?YES LEARNING PREFERENCES?NO LEARNING CAPABILITIES PRESENT?YES EMOTIONAL BARRIERS?NO SPECIAL DEVICES?YES :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 DIET: REGULAR. EXERCISE: NONE. MARITAL STATUS: SINGLE. TODAY'S VISIT 03/16/20, PATIENT DESCRIBES PAIN : ACHING, HAVE IT ALL THE TIME, STABBING, TENDER, SORE, SHOOTING, FROM 0-10, WHAT LEVEL IS YOUR PAIN TODAY? 6, PRECIPITATING FACTORS WALKING ALOT. GOING UP AND DOWN STAIRS, LIFTING AND HELPING HER HOUSE MATE, DAMP WEATHER, ALLEVIATING FACTORS HEAT, REST, IMPACT ON FUNCTION LIMITS HER ON WHAT SHE IS ABLE TO DO. PAIN CLINIC PFS, CLERGY, PUBLIC HEALTH REFERRALS HAS THE PATIENT BEEN EDUCATED REGARDING HIS/HER PLAN OF CARE?YES HAS THE PATIENT BEEN EDUCATED REGARDING PAIN, THE RISK FOR PAIN, THE IMPORTANCE OF EFFECTIVE PAIN MANAGEMENT, AND THE PAIN ASSESSMENT PROCESS?YES ADVANCE DIRECTIVE ADVANCE DIRECTIVE DISCUSSED WITH PATIENT:YES HCP ON FILE @[facility] ([place]) [phone] (HOME), (CELL) HOSPITALIZATION/MAJOR DIAGNOSTIC PROCEDURE SURGERIES REVIEW OF SYSTEMS CONSTITUTIONAL: ANY RECENT FEVER NO . CHILLS NO . WEIGHT CHANGE OF UNKNOWN REASONS NO . GASTROENTEROLOGY: NEW UNEXPLAINABLE CHANGES IN BOWEL CONTROL NO . CONSTIPATION NO . GENITOURINARY: ANY NEW CHANGE IN BLADDER CONTROL? NO . NEUROLOGY: NEW ONSET DIZZINESS OR NEUROLOGICAL CHANGES NOT MENTIONED NO . NEW NUMBNESS OR PAIN PATTERNS NOT MENTIONED AND PERTINENT TO TODAY'S VISIT NO . CARDIOLOGY: NEW CHEST PRESSURE NO . NEW CHEST PAIN NO . RESPIRATORY: UNEXPLAINABLE COUGH NO . NEW SHORTNESS OF BREATH NO . VITAL SIGNS WT 218.8 LBS, HT 69 IN, BMI 32.31 INDEX, BP 135/72 MM HG, HR 97 /MIN, RR 18 /MIN, TEMP 97.9 F, OXYGEN SAT % 98%, NA INITIALS AW 1401, REVIEWED BY: EILEEN. EXAMINATION GENERAL EXAMINATION: GENERALAWAKE,ALERT ,PLEASANT . PSYCHAFFECT NORMAL . LUNGS:LUNG NAIR ARE CLEAR TO AUSCULTATION BILATERALLY. GOOD MOVEMENT OF AIR . HEART:S1, S2 IN A REGULAR RATE AND RHYTHM. NO SIGNIFICANT MURMURS, RUBS OR GALLOPS NOTED . ASSESSMENTS OTHER CHRONIC POSTPROCEDURAL PAIN - G89.28 (PRIMARY) TREATMENT OTHER CHRONIC POSTPROCEDURAL PAIN PAIN PROCEDURE LOGDATE OF UTBOKEWMD28/20/20PROCEDURE:BILAT SACROILIAC BLOCKAMOUNT OF PRE SEDATE0/0RESULT:MARKED REDUCTION IN PAIN CONTINUES TODAY PROCEDURE CODES FA211 ESTABILISHED PATIENT [facility] CHARGE DISPOSITION & COMMUNICATION FOLLOW UP 3 MONTHS (REASON: SACROILIITIS) ELECTRONICALLY SIGNED BY JUSTYN BOTELLO ON 09/28/2020 AT 12:39 PM EST DISCLAIMER : THIS IS A VISIT SUMMARY EXTRACTED FROM THE [employer] CHART. IT IS NOT A COPY OF THE [employer] PROGRESS NOTE. JORDYN
== END ==
LOC: M PAIN 14:00
PROVIDERS: ATTEND Nurse Practitioner Family
DX: G89.28 Other chronic postprocedural pain (principal); H40.9 Unspecified glaucoma; E78.5 Hyperlipidemia, unspecified; G25.81 Restless legs syndrome; J44.9 Chronic obstructive pulmonary disease, unspecified; R10.13 Epigastric pain; R13.10 Dysphagia, unspecified; J30.9 Allergic rhinitis, unspecified; Z85.3 Personal history of malignant neoplasm of breast; Z79.82 Long term (current) use of aspirin; Z79.899 Other long term (current) drug therapy; Z87.891 Personal history of nicotine dependence; Z88.0 Allergy status to penicillin; Z88.5 Allergy status to narcotic agent

== ENCOUNTER → 2020-09-29 | Outpatient (CLI) | payer OTHER | LOC: M LABSMTC 11:07 | PROVIDERS: ATTEND Anesthesiology | DX: Z01.812 Encounter for preprocedural laboratory examination (principal); Z20.828 Contact with and (suspected) exposure to other viral communicable diseases ==

== ENCOUNTER 2020-10-04 09:16 | Day surgery (SDC) | payer OTHER ==
[~2020-10-04] VITALS: Ht 175.3 cm; Wt 97.7 kg
[~2020-10-04 09:16] MED LIST changes: +NS 1,000 ML IV ONE
--- NOTE | 2020-10-04 11:01 | ROOR ---
Patient Name: Maureen Rios Procedure Date: 10/04/2020 10:42 AM Date of : 1950 Age: 70 Room: [facility] Gender: Female Note Status: Finalized Procedure: Upper Endoscopy + Biopsies Indications: Heartburn, Exclusion of Iniguez's esophagus Providers: Brandon Sol MD Referring MD: IGNACIO PIERRE, Admin. Requesting Provider: Medicines: Monitored Anesthesia Care Complications: No immediate complications. Procedure: Pre-Anesthesia Assessment: - The heart rate, respiratory rate, oxygen saturations, blood pressure, adequacy of pulmonary ventilation, and response to care were monitored throughout the procedure. The Endoscope was introduced through the mouth, and advanced to the second part of duodenum. The upper GI endoscopy was accomplished without difficulty. The patient tolerated the procedure well. Findings: The Z-line was regular and was found 40 cm from the incisors. Multiple biopsies were obtained with cold forceps for evaluation to rule out Iniguez's Esophagus randomly at the gastroesophageal junction. A small hiatal hernia was present. No other significant abnormalities were identified in a careful examination of the stomach. The exam of the duodenum was otherwise normal. Impression: - Z-line regular, 40 cm from the incisors. - Small hiatal hernia. - Multiple biopsies were obtained at the gastroesophageal junction. - The examination was otherwise normal. Recommendation: - Patient has a contact number available for emergencies. The signs and symptoms of potential delayed complications were discussed with the patient. Return to normal activities tomorrow. Written discharge instructions were provided to the patient. - High fiber diet. - Discharge patient to home. - Follow an antireflux regimen. - Await pathology results. - Continue present medications. - Return to referring physician. - The findings and recommendations were discussed with the patient. Brandon Sol MD Brandon Sol MD 10/04/2020 11:00:45 AM Electronically signed by Brandon Sol MD Number of Addenda: 0 Note Initiated On: 10/04/2020 10:42 AM Estimated Blood Loss: Estimated blood loss: none.
--- NOTE | 2020-10-04 11:19 | ROOR ---
Patient Name: Maureen Rios Procedure Date: 10/04/2020 10:42 AM Date of : 1950 Age: 70 Room: [facility] Gender: Female Note Status: Finalized Procedure: Total Colonoscopy to Cecum Indications: Screening for colorectal malignant neoplasm Providers: Brandon Sol MD Referring MD: IGNACIO PIERRE, Admin. Requesting Provider: Medicines: Monitored Anesthesia Care Complications: No immediate complications. Procedure: Pre-Anesthesia Assessment: - The heart rate, respiratory rate, oxygen saturations, blood pressure, adequacy of pulmonary ventilation, and response to care were monitored throughout the procedure. The Colonoscope was introduced through the anus and advanced to the cecum, identified by appendiceal orifice and ileocecal valve. The colonoscopy was performed without difficulty. The patient tolerated the procedure well. The quality of the bowel preparation was excellent. Findings: The perianal and digital rectal examinations were normal. Non-bleeding internal hemorrhoids were found during retroflexion. The hemorrhoids were small and Grade I (internal hemorrhoids that do not prolapse). No other significant abnormalities were identified in a careful examination of the remainder of the colon. The exam was otherwise without abnormality on direct and retroflexion views. Impression: - Non-bleeding internal hemorrhoids. - The examination was otherwise normal on direct and retroflexion views. - No specimens collected. - The exam was otherwise normal to the cecum. Recommendation: - Patient has a contact number available for emergencies. The signs and symptoms of potential delayed complications were discussed with the patient. Return to normal activities tomorrow. Written discharge instructions were provided to the patient. - High fiber diet. - Discharge patient to home. - Continue present medications. - Repeat colonoscopy in 10 years for screening purposes. - Return to referring physician. - The findings and recommendations were discussed with the patient. Brandon Sol MD Brandon Sol MD 10/04/2020 11:19:05 AM Electronically signed by Brandon Sol MD Number of Addenda: 0 Note Initiated On: 10/04/2020 10:42 AM Estimated Blood Loss: Estimated blood loss: none.
[2020-10-04] MEDS ORDERED: propofoL 200 MG/20 ML VIAL As Ordered ONE (11:25)
[2020-10-04] MEDS ORDERED: LIDOCAINE 2% 100MG/5ML SDV (FOR ANES.) As Ordered ONE (11:25)
[2020-10-04 11:45] VITALS: BP 128/72
== END 2020-10-04 12:22 | disposition home or self-care (01) ==
LOC: M OPP 09:16
PROVIDERS: ATTEND Internal Medicine Gastroenterology
DX: Z12.11 Encounter for screening for malignant neoplasm of colon (principal); K64.0 First degree hemorrhoids; K44.9 Diaphragmatic hernia without obstruction or gangrene; R12 Heartburn; Z79.82 Long term (current) use of aspirin; Z79.899 Other long term (current) drug therapy; Z88.0 Allergy status to penicillin; Z88.5 Allergy status to narcotic agent; Z87.891 Personal history of nicotine dependence; Z85.3 Personal history of malignant neoplasm of breast; Z92.21 Personal history of antineoplastic chemotherapy; Z92.3 Personal history of irradiation
CPT/HCPCS: 43239; 88305; G0121

== ENCOUNTER → 2020-12-27 | Outpatient (CLI) | payer OTHER ==
[~2020-12-27] MED LIST changes: +GABA-282 PO; -GABA-843 PO; -NS 1,000 ML IV ONE
--- NOTE | 2020-12-30 05:30 | ECWPNPC ---
PATIENT NAME: CYNTHIA LAROSE : 1950 GENDER: FEMALE VISIT DATE: 12/27/2020 DISCHARGE DATE: 12/27/20 1132 VISIT LOCKED DATE TIME: PHYSICIAN: SHASHI NGUYEN RESOURCE: SHASIH NGUYEN REASON FOR APPOINTMENT 1. LOW BACK HISTORY OF PRESENT ILLNESS DEPRESSION SCREENING: PHQ-2 (2015 EDITION) LITTLE INTEREST OR PLEASURE IN DOING THINGS?NOT AT ALL FEELING DOWN, DEPRESSED, OR HOPELESS?NOT AT ALL TOTAL SCORE0 GENERAL: HERE FOR FOLLOW-UP OF CHRONIC LOW BACK PAIN. PAIN HAS BEGUN TO RETURN. PAIN IS AGGRAVATED BY WALKING OR STANDING. HAS BENEFITED FROM SACROILIAC JOINT BLOCKS IN THE PAST. RELIEF FROM THESE INJECTIONS LAST SEVERAL MONTHS. - -. FALL RISK SCREENING: SCREENING :NO FALLS REPORTED IN THE LAST YEAR PAIN SCREENING: PATIENT HAS A COMPLAINT OF ACUTE OR CHRONIC PAIN :YES LOCATION OF PAIN:LOW BACK INTENSITY OF PAIN (SCALE OF 1 TO 10):4 WHAT DOES YOUR PAIN FEEL LIKE:ACHING DURATION:CONTINOUS, CONSTANT, ALL DAY PAIN IS INCREASED BY:ACTIVITIES PAIN IS DECREASED BY:USE OF PAIN MEDICATIONS NURSING NOTE: -. PAIN CENTER INTAKE QUESTIONS: DO YOU HAVE A HISTORY OF MRSA? :NO DO YOU TAKE A BLOOD THINNERS? :NO DO YOU HAVE ANY BLEEDING DISORDERS? :NO ANY NEW NUMBNESS OR WEAKNESS IN YOUR LEGS OR ARMS? :NO ANY PACEMAKER,DEFIBRILLATOR, OR DORSAL COLUMN STIMULATOR? :NO DO YOU HAVE ANY RASHES OR OPEN SORES? :NO ARE YOU ALLERGIC TO IV DYE? :NO ARE YOU DIABETIC? :NO ANY NEW PROBLEMS WITH YOUR MEDICATIONS? :NO HAVE YOU RECEIVED A VACCINE IN THE PAST 30 DAYS? :YES IF SO WHAT VACCINE AND WHEN? COVID DO YOU PLAN TO RECEIVE A VACCINE IN THE NEXT 21 DAYS? :YES IF SO WHAT VACCINE AND WHEN? 2ND COVID DO YOU NEED ANY PRESCRIPTION? :NO DO YOU TAKE ANY IMMUNOSUPPRESSIVE MEDICATIONS? :NO IS THERE A CHANCE YOU COULD BE ? :NO ARE YOU BREAST FEEDING? :NO CURRENT MEDICATIONS TAKING CYCLOSPORINE 0.1 % EMULSION 1 DROP INTO AFFECTED EYE OPHTHALMIC BEFORE BEDTIME TAKING TIMOLOL MALEATE 0.25 % SOLUTION 1 DROP INTO AFFECTED EYE OPHTHALMIC ONCE A DAY TAKING ROPINIROLE HCL 0.5 MG TABLET 2.MG 2 TABLETS 1 TO 3 HOURS BEFORE BEDTIME ORALLY ONCE A DAY TAKING OMEPRAZOLE 20 MG CAPSULE DELAYED RELEASE 1 CAPSULE ORALLY ONCE A DAY TAKING OLODATEROL HCL 2.5 MCG/ACT AEROSOL SOLUTION 2 PUFFS INHALATION ONCE A DAY TAKING EZETIMIBE 10 MG TABLET 1 TABLET ORALLY ONCE A DAY TAKING ACETAMINOPHEN 500 MG TABLET 2 TABLETS ORALLY EVERY 6 HOURS NEEDED (MDD 3000 MG) TAKING CALTRATE 600 1500 (600 CA) MG TABLET 1 CAP ORALLY BID TAKING ASPIRIN 81 MG TABLET CHEWABLE 1 TABLET ORALLY TWICE A DAY TAKING GABAPENTIN 300 MG CAPSULE 1 CAPSULE ORALLY TWICE A DAY TAKING CELEBREX 100 MG CAPSULE 1 CAPSULE WITH FOOD ORALLY BID TAKING LIDOCAINE & ADHESIVE SHEET 5 % KIT DIRECTED EXTERNALLY PRN TAKING CYCLOBENZAPRINE HCL 10 MG TABLET 1 TABLET AT BEDTIME NEEDED ORALLY ONCE A DAY PRN NOT-TAKING TRAMADOL HCL 50 MG TABLET 1 TABLET NEEDED ORALLY EVERY 6 HRS NOT-TAKING LATANOPROST 0.005 % SOLUTION 1 DROP INTO AFFECTED EYE IN THE EVENING OPHTHALMIC ONCE A DAY NOT-TAKING MAY HAVE CBD OIL ORALLY BID NOT-TAKING ALBUTEROL SULFATE HFA 108 (90 BASE) MCG/ACT AEROSOL SOLUTION 2 PUFFS NEEDED INHALATION EVERY 6 HRS NOT-TAKING ATORVASTATIN CALCIUM 10 MG TABLET 1 TABLET ORALLY ONCE A DAY MEDICATION LIST REVIEWED AND RECONCILED WITH THE PATIENT PAST MEDICAL HISTORY GLAUCOMA LOW BACK PAIN ALLERGIC RHINITIS HYPERLIPIDEMIA DYSPEPSIA, DYSPHAGIA OSTEOPENIA CHOLELITHIASIS HEMORRHOIDS RECTAL MASS RESTLESS LEGS BREAST CANCER COPD OSTEOARTHRITIS ALLERGIES PENICILLIN (FOR ALLERGIES USE ONLY): JOINT PAIN - SIDE EFFECTS OXYCODONE HCL: DIZZINESS - SIDE EFFECTS HYDROCODONE BITARTRATE: DIZZINESS - SIDE EFFECTS REVIEW OF SYSTEMS CONSTITUTIONAL: ANY RECENT FEVER NO . CHILLS NO . WEIGHT CHANGE OF UNKNOWN REASONS NO . GASTROENTEROLOGY: NEW UNEXPLAINABLE CHANGES IN BOWEL CONTROL NO . CONSTIPATION NO . GENITOURINARY: ANY NEW CHANGE IN BLADDER CONTROL? NO . NEUROLOGY: NEW ONSET DIZZINESS OR NEUROLOGICAL CHANGES NOT MENTIONED NO . NEW NUMBNESS OR PAIN PATTERNS NOT MENTIONED AND PERTINENT TO TODAY'S VISIT NO . CARDIOLOGY: NEW CHEST PRESSURE NO . NEW CHEST PAIN NO . RESPIRATORY: UNEXPLAINABLE COUGH NO . NEW SHORTNESS OF BREATH NO . VITAL SIGNS WT 235 LBS, HT 69 IN, BMI 34.70 INDEX, BP 134/58 MM HG, HR 86 /MIN, RR 18 /MIN, TEMP 97.8 F, OXYGEN SAT % 95%, SAFE IN ENV? (Y/N) YEST.GENESIS MARK. EXAMINATION GENERAL EXAMINATION: GENERAL AWAKE,ALERT ,PLEAASANT . PSYCH AFFECT NORMAL . NECK:TRACHEA MIDLINE. NO CERVICAL OR SUPRACLAVICULAR LYMPHADENOPATHY NOTED. LUNGS: LUNG NAIR ARE CLEAR TO AUSCULTATION BILATERALLY. GOOD MOVEMENT OF AIR . HEART: S1, S2 IN A REGULAR RATE AND RHYTHM. NO SIGNIFICANT MURMURS, RUBS OR GALLOPS NOTED . MUSCULOSKELETAL:MUSCLE STRENGTH TESTING 5/5 BILATERAL LOWER EXTREMITIES , PALPATION: POSITIVE FOR PAIN OVER L/S SPINE. POSITIVE FOR PAIN OVER L/S PARSPINALS SPECIFIC POINT TENDERNESS OVER BILATERAL SIJ. NEUROLOGIC EXAM:NORMAL SENSATION TO LIGHT TOUCH LOWER EXTREMITIES. DIAGNOSTIC:MRI L/S 02-28-18-REVIEWED. ASSESSMENTS SACROILIITIS, NOT ELSEWHERE CLASSIFIED - [id number] (PRIMARY) TREATMENT SACROILIITIS, NOT ELSEWHERE CLASSIFIED NOTES: BILATERAL SACROILLIAC JOINT BLOCK/NEEDS [place] REQUEST FOR MORE VISITS. PROCEDURE CODES FA211 ESTABILISHED PATIENT [facility]AC[facility] CHARGE DISPOSITION & COMMUNICATION FOLLOW UP POST PROCEDURE (REASON: BILAT. SIJ/NEEDS [place] REQUEST FOR MORE VISITS) ELECTRONICALLY SIGNED BY JUSTYN BOTELLO ON 12/29/2020 AT 08:56 PM EST DISCLAIMER : THIS IS A VISIT SUMMARY EXTRACTED FROM THE [employer] CHART. IT IS NOT A COPY OF THE [employer] PROGRESS NOTE. JORDYN
== END ==
LOC: M PAIN 10:30
PROVIDERS: ATTEND Nurse Practitioner Family
DX: M46.1 Sacroiliitis, not elsewhere classified (principal); H40.9 Unspecified glaucoma; E78.5 Hyperlipidemia, unspecified; G25.81 Restless legs syndrome; J44.9 Chronic obstructive pulmonary disease, unspecified; M19.90 Unspecified osteoarthritis, unspecified site; Z85.3 Personal history of malignant neoplasm of breast; Z88.0 Allergy status to penicillin; Z88.5 Allergy status to narcotic agent; Z79.82 Long term (current) use of aspirin; Z79.899 Other long term (current) drug therapy

== ENCOUNTER → 2021-01-29 | Outpatient (CLI) | payer OTHER | LOC: M LABSMTC 09:19 | DX: Z01.812 Encounter for preprocedural laboratory examination (principal); Z20.822 Contact with and (suspected) exposure to COVID-19 ==

== ENCOUNTER → 2021-02-03 | Outpatient (CLI) | payer OTHER ==
[~2021-02-03] MED LIST changes: +BUPIVACAINE HCL 0.25% 30ML VIAL As Ordered ONE; +ISOVUE-M 300 61% 15ML VIAL As Ordered ONE; +LIDOCAINE 1% SDV 30ML VIAL As Ordered ONE; +TRIAMCINOLONE ACETONIDE SUSP 40 MG/ML VIAL (J3301) As Ordered ONE
--- NOTE | 2021-02-03 12:25 | REP ---
INDICATION: BILATERAL SIJ. COMPARISON: None. TECHNIQUE: Two views. 23.6 seconds of fluoroscopy time is reported. FINDINGS: A sequence of 2 last image hold fluoroscopically obtained spot radiographs document bilateral needle position and contrast injection associated with injection procedure. IMPRESSION: Procedural imaging. <Electronically signed by John Paul Johnson > 02/03/21 0944
--- NOTE | 2021-02-04 05:57 | ECWPNPC ---
PATIENT NAME: CYNTHIA LAROSE : 1950 GENDER: FEMALE VISIT DATE: 02/03/2021 DISCHARGE DATE: 02/03/21 1209 VISIT LOCKED DATE TIME: PHYSICIAN: DIANA BOOKER MD RESOURCE: DIANA BOOKER MD REASON FOR APPOINTMENT 1. BILATERAL SACROILIAC JOINT INJECTION HISTORY OF PRESENT ILLNESS GENERAL: -. FALL RISK SCREENING: SCREENING : NO FALLS REPORTED IN THE LAST YEAR. PAIN SCREENING: PATIENT HAS A COMPLAINT OF ACUTE OR CHRONIC PAIN :YES LOCATION OF PAIN:LOW BACK, LEFT HIP, RIGHT HIP, LEG(S), OTHER: BUTTOCKS INTENSITY OF PAIN (SCALE OF 1 TO 10):9 WHAT DOES YOUR PAIN FEEL LIKE:ACHING, CONTINOUS, STABBING DURATION:CONTINOUS, CONSTANT, STEADY, ALL DAY PAIN IS INCREASED BY:ACTIVITIES, OTHERS LIFTING, BENDING, PAINTING PAIN IS DECREASED BY:OTHERS LAYING DOWN, HEAT, LIDOCAINE NURSING NOTE: -. PAIN CENTER INTAKE QUESTIONS: DO YOU HAVE A HISTORY OF MRSA? :NO DO YOU TAKE A BLOOD THINNERS? :NO DO YOU HAVE ANY BLEEDING DISORDERS? :NO ANY NEW NUMBNESS OR WEAKNESS IN YOUR LEGS OR ARMS? :YES WEAKNESS IN BILATERAL LEGS, NUMBNESS IN TOES ANY PACEMAKER,DEFIBRILLATOR, OR DORSAL COLUMN STIMULATOR? :NO DO YOU HAVE ANY RASHES OR OPEN SORES? :NO ARE YOU ALLERGIC TO IV DYE? :NO ARE YOU DIABETIC? :NO ANY NEW PROBLEMS WITH YOUR MEDICATIONS? :NO HAVE YOU RECEIVED A VACCINE IN THE PAST 30 DAYS? :NO 2ND COVID VACCINE ON 01/01/21. DO YOU PLAN TO RECEIVE A VACCINE IN THE NEXT 21 DAYS? :NO DO YOU TAKE ANY IMMUNOSUPPRESSIVE MEDICATIONS? :NO ANY HISTORY OF SEIZURES? :NO ANY HISTORY OF CARDIAC ISSUES OR EVENTS? :NO DO YOU HAVE ANY KIDNEY OR LIVER DISEASE? :NO DO YOU HAVE SLEEP APNEA? :NO ANY RECENT HEAD INJURY? :NO DO YOU HAVE ANY NEW INFECTIONS? :NO IS THERE A CHANCE YOU COULD BE ? :NO ARE YOU BREAST FEEDING? :NO WHEN DID YOU LAST EAT? : 02/02/21 1900 WHEN DID YOU LAST DRINK? : 0600 WHAT DID YOU LAST DRINK? : BLACK COFFEE NAME OF PERSON DRIVING YOU HOME? : JESSICA WINTER (FRIEND) DO YOU HAVE ANY OTHER QUESTIONS OR CONCERNS? : - CURRENT MEDICATIONS TAKING ROPINIROLE HCL 0.5 MG TABLET 2.MG 2 TABLETS 1 TO 3 HOURS BEFORE BEDTIME ORALLY ONCE A DAY TAKING OMEPRAZOLE 20 MG CAPSULE DELAYED RELEASE 1 CAPSULE ORALLY ONCE A DAY TAKING OLODATEROL HCL 2.5 MCG/ACT AEROSOL SOLUTION 2 PUFFS INHALATION ONCE A DAY TAKING EZETIMIBE 10 MG TABLET 1 TABLET ORALLY ONCE A DAY TAKING ACETAMINOPHEN 500 MG TABLET 2 TABLETS ORALLY EVERY 6 HOURS NEEDED (MDD 3000 MG), NOTES: 02/02/21 PM TAKING CALTRATE 600 1500 (600 CA) MG TABLET 1 CAP ORALLY BID TAKING ASPIRIN 81 MG TABLET CHEWABLE 1 TABLET ORALLY TWICE A DAY, NOTES: 0600 TAKING GABAPENTIN 300 MG CAPSULE 1 CAPSULE ORALLY TWICE A DAY, NOTES: 0600 TAKING CELEBREX 100 MG CAPSULE 1 CAPSULE WITH FOOD ORALLY BID, NOTES: 02/02/21 PM TAKING LIDOCAINE & ADHESIVE SHEET 5 % KIT DIRECTED EXTERNALLY PRN TAKING CYCLOBENZAPRINE HCL 10 MG TABLET 1 TABLET AT BEDTIME NEEDED ORALLY ONCE A DAY PRN, NOTES: 02/02/21 2130 NOT-TAKING CYCLOSPORINE 0.1 % EMULSION 1 DROP INTO AFFECTED EYE OPHTHALMIC BEFORE BEDTIME NOT-TAKING TIMOLOL MALEATE 0.25 % SOLUTION 1 DROP INTO AFFECTED EYE OPHTHALMIC ONCE A DAY NOT-TAKING TRAMADOL HCL 50 MG TABLET 1 TABLET NEEDED ORALLY EVERY 6 HRS NOT-TAKING LATANOPROST 0.005 % SOLUTION 1 DROP INTO AFFECTED EYE IN THE EVENING OPHTHALMIC ONCE A DAY NOT-TAKING MAY HAVE CBD OIL ORALLY BID NOT-TAKING ALBUTEROL SULFATE HFA 108 (90 BASE) MCG/ACT AEROSOL SOLUTION 2 PUFFS NEEDED INHALATION EVERY 6 HRS NOT-TAKING ATORVASTATIN CALCIUM 10 MG TABLET 1 TABLET ORALLY ONCE A DAY MEDICATION LIST REVIEWED AND RECONCILED WITH THE PATIENT PAST MEDICAL HISTORY GLAUCOMA LOW BACK PAIN ALLERGIC RHINITIS HYPERLIPIDEMIA DYSPEPSIA, DYSPHAGIA OSTEOPENIA CHOLELITHIASIS HEMORRHOIDS RECTAL MASS RESTLESS LEGS BREAST CANCER COPD OSTEOARTHRITIS ALLERGIES PENICILLIN (FOR ALLERGIES USE ONLY): JOINT PAIN - SIDE EFFECTS OXYCODONE HCL: DIZZINESS - SIDE EFFECTS HYDROCODONE BITARTRATE: DIZZINESS - SIDE EFFECTS SOCIAL HISTORY GENERAL: TOBACCO USE ARE YOU A:FORMER SMOKER QUIT 10-05-2005 LATEX QUESTIONNAIRE LATEX ALLERGY : HAVE YOU EVER DEVELOPED ANY TYPE OF REACTION AFTER HANDLING LATEX PRODUCTS SUCH RUBBER GLOVES, CONDOMS, DIAPHRAGMS, BALLOONS, SOCKS, OR UNDERWEAR?NO LATEX ALLERGY : HAVE YOU EVER DEVELOPED ANY TYPE OF REACTION DURING OR AFTER DENTAL APPOINTMENT, VAGINAL/RECTAL EXAMINATION, SURGICAL PROCEDURE, OR ANY OTHER EXPOSURE?NO LATEX RISK : HAVE YOU EVER HAD ANY DIFFICULTY BREATHING OR HIVES AFTER EATING OR HANDLING ANY FRUITS, OR VEGETABLES; SUCH KIWI, BANANAS, STONE FRUITS, OR CHESTNUTSNO LATEX RISK : DO YOU HAVE A PREVIOUS PERSONAL HISTORY OF MORE THAN NINE SURGERIES, SPINA BIFIDA, OR REPEATED CATHERIZATIONS? NO LATEX RISK : ARE YOU FREQUENTLY EXPOSED TO LATEX PRODUCTS IN YOUR OCCUPATION?NO DATE ASKED : 02/03/2021 ALCOHOL USE: NO. ALCOHOL SCREENING DID YOU HAVE A DRINK CONTAINING ALCOHOL IN THE PAST YEAR?NO POINTS0 INTERPRETATIONNEGATIVE RECREATIONAL DRUG USE DRUG USE?NO ZOROASTRIAN [id number] OTHER LANGUAGE LANGUAGES SPOKEN:BRAZILIAN EDUCATION LEVEL OF EDUCATION:FINISHED COL[employer]ATES DEGREE LEARNING BARRIERS / SPECIAL NEEDS CHANGE FROM LAST VISIT?NO BARRIERS TO LEARNING?NO HEARING IMPAIRED?NO VISION IMPAIRED?YES :CORRECTIVE LENSES COGNITIVELY IMPAIRED?NO READINESS TO LEARN?YES LEARNING PREFERENCES?NO LEARNING CAPABILITIES PRESENT?YES EMOTIONAL BARRIERS?NO SPECIAL DEVICES?YES :CANE SPD MANAGER NEEDED?NO OCCUPATION: RETIRED FROM [employer] WORKING WITH MENTALLY DISABLED. DIET: REGULAR. EXERCISE: NONE. MARITAL STATUS: SINGLE. TODAY'S VISIT 03/16/20, PATIENT DESCRIBES PAIN : ACHING, HAVE IT ALL THE TIME, STABBING, TENDER, SORE, SHOOTING, FROM 0-10, WHAT LEVEL IS YOUR PAIN TODAY? 6, PRECIPITATING FACTORS WALKING ALOT. GOING UP AND DOWN STAIRS, LIFTING AND HELPING HER HOUSE MATE, DAMP WEATHER, ALLEVIATING FACTORS HEAT, REST, IMPACT ON FUNCTION LIMITS HER ON WHAT SHE IS ABLE TO DO. - HAS THE PATIENT BEEN EDUCATED REGARDING HIS/HER PLAN OF CARE?YES HAS THE PATIENT BEEN EDUCATED REGARDING PAIN, THE RISK FOR PAIN, THE IMPORTANCE OF EFFECTIVE PAIN MANAGEMENT, AND THE PAIN ASSESSMENT PROCESS?YES ADVANCE DIRECTIVE ADVANCE DIRECTIVE DISCUSSED WITH PATIENT:YES HCP ON FILE @[facility] ELBA LAROSE (SISTER) [phone] (HOME), (CELL) VITAL SIGNS WT 236 LBS, HT 69 IN, BMI 34.85 INDEX, BP 140/84 MM HG, HR 108 /MIN, RR 18 /MIN, TEMP 97.5 F, OXYGEN SAT % 95%, SAFE IN ENV? (Y/N) YES, NA INITIALS SC 10:35, REVIEWED BY: Osorio ROSENBERG RN. EXAMINATION GENERAL EXAMINATION: THE PATIENT IS ALERT, ORIENTED TIMES THREE AND COOPERATIVE. LUNGS ARE CLEAR TO AUSCULTATION. HEART SHOWS REGULAR RHYTHM, NO MURMURS AND NO GALLOPS. ASSESSMENTS SACROILIITIS, NOT ELSEWHERE CLASSIFIED - M46.1 (PRIMARY) TREATMENT SACROILIITIS, NOT ELSEWHERE CLASSIFIED [facility] FLUORO GUIDANCE (PAIN)[id number] COMPLETION OF PROCEDURAL VISIT WHEN MEETS CRITERIAFABIEN ROSENBERG 02/03/2021 12:05:36 PM > CRITERIA MET. PROCEDURES PAIN NURSING RECORD PROCEDURE IN ROOM 1112, PHYSICIAN IN ROOM 1134, START 1137, FINISH 1142, PHYSICIAN OUT OF ROOM 1144, OUT OF ROOM 1151, ECG NORMAL SINUS, PATIENT SHIELDED YES, SAFETY STRAP YES, PREP CHLOROPREP BY: Osorio ROSENBERG, RENETTA, DRESSING TEGADERM BY: DR. BOOKER LOC: FABIEN ROSENBERG 02/03/2021 11:38:08 AM > , 1. ALERT, ORIENTED RESP: FABIEN ROSENBERG 02/03/2021 11:38:12 AM > , 1. REGULAR, NO DYSPNEA COLOR: FABIEN ROSENBERG 02/03/2021 11:38:15 AM > , 1. PINK SKIN: FABIEN ROSENBERG 02/03/2021 11:38:19 AM > , 1. WARM, DRY POSITION: FABIEN ROSENBERG 02/03/2021 11:38:22 AM > , 1. PRONE VITALS: FABIEN ROSENBERG 02/03/2021 11:16:10 AM > 141/78, 97, 16, 96% FABIEN ROSENBERG 02/03/2021 11:28:07 AM > 132/73, 94, 16, 94% FABIEN ROSENBERG 02/03/2021 11:43:15 AM > 131/73, 93, 18, 95% FABIEN ROSENBERG 02/03/2021 11:47:49 AM > 156/77, 96, 18, 97% FABIEN ROSENBERG 02/03/2021 11:59:19 AM > 131/70, 96, 16, 98% COMPLETION OF PROCEDURE APPOINTMENT: POST PAIN 1, DRESSING SITE DRY AND INTACT, IV N/A, GAIT STEADY, TEACHING COMPLETED, PATIENT ACKNOWLEDGES UNDERSTANDING YES, PROCEDURE APPOINTMENT COMPLETED AT 1208 BY: Osorio ROSENBERG RN PN SI PRE PROCEDURE DIAGNOSIS SACROILIITIS, SACROILIAC JOINT DYSFUNCTION POST PROCEDURE DIAGNOSIS SACROILIITIS, SACROILIAC JOINT DYSFUNCTION PROCEDURE BILATERAL SACROILIAC JOINT BLOCK SURGEON DR. DIANA BOOKER PUBLIC EVENTS FACILITIES RENTAL MANAGER NONE ANESTHESIA LOCAL PRE PROCEDURE NOTE THE PATIENT WITH HISTORY OF CHRONIC LOW BACK PAIN. I EVALUATED THE PATIENT AND REVIEWED THE CHART. I WENT OVER THE RISKS, ALTERNATIVES, AND BENEFITS ASSOCIATED WITH THIS PROCEDURE. THE PATIENT WOULD LIKE TO PROCEED AND GAVE CONSENT TO PERFORM THE PROCEDURE. THE PATIENT DENIES UNEXPLAINABLE WEIGHT LOSS, FEVER, CHILLS, OR NEW CHANGES IN URINARY OR BOWEL CONTROL. THE PATIENT IS COVID-19 NEGATIVE DESCRIPTION OF PROCEDURE THE PATIENT WAS BROUGHT TO THE PROCEDURE ROOM AND PLACED IN THE PRONE POSITION. THE LUMBOSACRAL AREA WAS CLEANED WITH CHLORAPREP SOLUTION AND DRAPED ASEPTICALLY. THE PROCEDURE WAS DONE UNDER STERILE CONDITIONS. A TIMEOUT WAS PERFORMED WHERE THE CONSENTED SITE WAS VERIFIED WITH EVERYONE IN THE ROOM. UNDER FLUOROSCOPIC GUIDANCE, THE TARGET POINT WAS SELECTED AT THE LOWER BORDER OF THE RIGHT AND LEFT SACROILIAC JOINT. TARGET POINT WAS SELECTED AFTER MEDIAL ROTATION AND TILT OF THE MAGNIFIER OR THE C-ARM. I CONFIRMED AGAIN THE SITE OF TARGET. LIDOCAINE 0.5% WAS USED TO NUMB THE SKIN AND THE SUBCUTANEOUS TISSUE BELOW IT. SPINAL NEEDLES, 22-GAUGE, WERE ADVANCED UNDER FLUOROSCOPIC GUIDANCE AND FOLLOWING PATIENT FEEDBACK UNTIL THE TARGETS WERE TOUCHED. THE POSITION OF THE NEEDLES WAS VERIFIED WITH AP AND OBLIQUE VIEWS. AFTER PROPER POSITION OF THE NEEDLES WAS ACHIEVED, ISOVUE-M DYE 30%, 0.1 ML, WAS INJECTED SHOWING ADEQUATE SPREAD OF THE DYE. KENALOG 20 MG WAS INJECTED AT EACH SITE. THEN, A SOLUTION OF 3.0 ML OF BUPIVACAINE 0.125% WAS USED TO FLUSH EACH NEEDLE. THE MEDICATIONS WERE VERIFIED WITH THE NURSE. THERE WAS NO EVIDENCE OF BLOOD, PARESTHESIA OR CEREBROSPINAL FLUID DURING THE PROCEDURE. THE PATIENT WAS SENT TO THE RECOVERY ROOM. THE PATIENT WAS MOVING THE EXTREMITIES AND DOING WELL. THERE WERE NO COMPLICATIONS DURING THE PROCEDURE. ESTIMATED BLOOD LOSS WAS LESS THAN 5 ML. FLUOROSCOPIC TIME WAS 23 SECONDS. POST PROCEDURE NOTE THE PROCEDURE DONE WAS DISCUSSED WITH THE PATIENT. THE PATIENT WILL BE SEEN IN A FOLLOW UP IN THE NEXT FEW WEEKS. I AM LOOKING FOR LONG LASTING PAIN RELIEF FOR THE PATIENT WITH THIS INTERVENTION. INSTRUCTIONS WERE GIVEN, QUESTIONS WERE ANSWERED, AND THE PATIENT EXPRESSED UNDERSTANDING AND AGREES WITH THE PLAN. I, EVERARDO FISHER, DOCUMENTED THE ABOVE INFORMATION ACTING A SCRIBE FOR DR. BOOKER. I HAVE REVIEWED THE ABOVE DOCUMENT, WRITTEN BY EVERARDO FISHER, STEAM FITTER HELPER, AND I VERIFY THAT IT IS ACCURATE PROCEDURE CODES 69830 INJECT SACROILIAC JOINT, MODIFIERS: 50 DISPOSITION & COMMUNICATION FOLLOW UP FOLLOW UP WITH LEAD PASTOR (REASON: POST BILATERAL SACROILIAC JOINT BLOCK) ELECTRONICALLY SIGNED BY DIANA BOOKER MD, MD ON 02/03/2021 AT 03:40 PM EDT DISCLAIMER : THIS IS A VISIT SUMMARY EXTRACTED FROM THE [employer] CHART. IT IS NOT A COPY OF THE [employer] PROGRESS NOTE. JORDYN
== END ==
LOC: M PAIN 10:30
PROVIDERS: ATTEND Anesthesiology
DX: M46.1 Sacroiliitis, not elsewhere classified (principal); H40.9 Unspecified glaucoma; M54.5 Low back pain; J30.9 Allergic rhinitis, unspecified; E78.5 Hyperlipidemia, unspecified; R13.10 Dysphagia, unspecified; K64.8 Other hemorrhoids; J44.9 Chronic obstructive pulmonary disease, unspecified; Z85.3 Personal history of malignant neoplasm of breast; Z87.891 Personal history of nicotine dependence; Z79.82 Long term (current) use of aspirin; Z79.899 Other long term (current) drug therapy; Z88.0 Allergy status to penicillin; Z88.5 Allergy status to narcotic agent
CPT/HCPCS: G0260; J3301; Q9967

== ENCOUNTER → 2021-02-17 | Outpatient (CLI) | payer OTHER ==
[~2021-02-17] MED LIST changes: -BUPIVACAINE HCL 0.25% 30ML VIAL As Ordered ONE; -ISOVUE-M 300 61% 15ML VIAL As Ordered ONE; -LIDOCAINE 1% SDV 30ML VIAL As Ordered ONE; -TRIAMCINOLONE ACETONIDE SUSP 40 MG/ML VIAL (J3301) As Ordered ONE
--- NOTE | 2021-02-19 03:57 | ECWPNPC ---
PATIENT NAME: CYNTHIA LAROSE : 1950 GENDER: FEMALE VISIT DATE: 02/17/2021 DISCHARGE DATE: 02/17/21 1205 VISIT LOCKED DATE TIME: PHYSICIAN: SHASHI NGUYEN RESOURCE: SHASHI NGUYEN REASON FOR APPOINTMENT 1. POST BILATERAL SACROILIAC JOINT BLOCK HISTORY OF PRESENT ILLNESS GENERAL: HERE FOR POST PROCEDURE FOLLOW-UP. HAD BILATERAL SACROILIAC JOINT BLOCK ON 02/03/2021. REPORTING MARKED REDUCTION IN PAIN AND IMPROVED MOBILITY SINCE INJECTION. DR. BOOKER SPOKE TO HER ABOUT CONSIDERING PROCEDURE IN THE FUTURE BUT AFTER RESEARCHING PROCEDURE NOTE I AM NOT SURE WHAT IS PLANNED. IT MAY BE A RADIOFREQUENCY OF THE SACROILIAC NERVES. I WILL DISCUSS THIS WITH HIM AND GET BACK TO CYNTHIA. -. FALL RISK SCREENING: SCREENING : NO FALLS REPORTED IN THE LAST YEAR. PAIN SCREENING: PATIENT HAS A COMPLAINT OF ACUTE OR CHRONIC PAIN :YES LOCATION OF PAIN:LOW BACK INTENSITY OF PAIN (SCALE OF 1 TO 10):1 WHAT DOES YOUR PAIN FEEL LIKE:ACHING, SHOOTING DURATION:CONTINOUS, CONSTANT, ALL DAY PAIN IS INCREASED BY:ACTIVITIES PAIN IS DECREASED BY:USE OF PAIN MEDICATIONS NURSING NOTE: -. PAIN CENTER INTAKE QUESTIONS: DO YOU HAVE A HISTORY OF MRSA? :NO DO YOU TAKE A BLOOD THINNERS? :NO DO YOU HAVE ANY BLEEDING DISORDERS? :NO ANY NEW NUMBNESS OR WEAKNESS IN YOUR LEGS OR ARMS? :NO ANY PACEMAKER,DEFIBRILLATOR, OR DORSAL COLUMN STIMULATOR? :NO DO YOU HAVE ANY RASHES OR OPEN SORES? :NO ARE YOU ALLERGIC TO IV DYE? :NO ARE YOU DIABETIC? :NO ANY NEW PROBLEMS WITH YOUR MEDICATIONS? :NO HAVE YOU RECEIVED A VACCINE IN THE PAST 30 DAYS? :YES IF SO WHAT VACCINE AND WHEN? COVID 01/01/2021 DO YOU PLAN TO RECEIVE A VACCINE IN THE NEXT 21 DAYS? :NO DO YOU NEED ANY PRESCRIPTION? :NO DO YOU TAKE ANY IMMUNOSUPPRESSIVE MEDICATIONS? :NO IS THERE A CHANCE YOU COULD BE ? :NO ARE YOU BREAST FEEDING? :NO CURRENT MEDICATIONS TAKING ROPINIROLE HCL 0.5 MG TABLET 2.MG 2 TABLETS 1 TO 3 HOURS BEFORE BEDTIME ORALLY ONCE A DAY TAKING OMEPRAZOLE 20 MG CAPSULE DELAYED RELEASE 1 CAPSULE ORALLY ONCE A DAY TAKING OLODATEROL HCL 2.5 MCG/ACT AEROSOL SOLUTION 2 PUFFS INHALATION ONCE A DAY TAKING EZETIMIBE 10 MG TABLET 1 TABLET ORALLY ONCE A DAY TAKING ACETAMINOPHEN 500 MG TABLET 2 TABLETS ORALLY EVERY 6 HOURS NEEDED (MDD 3000 MG) TAKING CALTRATE 600 1500 (600 CA) MG TABLET 1 CAP ORALLY BID TAKING ASPIRIN 81 MG TABLET CHEWABLE 1 TABLET ORALLY TWICE A DAY TAKING GABAPENTIN 300 MG CAPSULE 1 CAPSULE ORALLY TWICE A DAY TAKING CELEBREX 100 MG CAPSULE 1 CAPSULE WITH FOOD ORALLY BID TAKING LIDOCAINE & ADHESIVE SHEET 5 % KIT DIRECTED EXTERNALLY PRN TAKING CYCLOBENZAPRINE HCL 10 MG TABLET 1 TABLET AT BEDTIME NEEDED ORALLY ONCE A DAY PRN NOT-TAKING CYCLOSPORINE 0.1 % EMULSION 1 DROP INTO AFFECTED EYE OPHTHALMIC BEFORE BEDTIME NOT-TAKING TIMOLOL MALEATE 0.25 % SOLUTION 1 DROP INTO AFFECTED EYE OPHTHALMIC ONCE A DAY NOT-TAKING TRAMADOL HCL 50 MG TABLET 1 TABLET NEEDED ORALLY EVERY 6 HRS NOT-TAKING LATANOPROST 0.005 % SOLUTION 1 DROP INTO AFFECTED EYE IN THE EVENING OPHTHALMIC ONCE A DAY NOT-TAKING MAY HAVE CBD OIL ORALLY BID NOT-TAKING ALBUTEROL SULFATE HFA 108 (90 BASE) MCG/ACT AEROSOL SOLUTION 2 PUFFS NEEDED INHALATION EVERY 6 HRS NOT-TAKING ATORVASTATIN CALCIUM 10 MG TABLET 1 TABLET ORALLY ONCE A DAY MEDICATION LIST REVIEWED AND RECONCILED WITH THE PATIENT PAST MEDICAL HISTORY GLAUCOMA LOW BACK PAIN ALLERGIC RHINITIS HYPERLIPIDEMIA DYSPEPSIA, DYSPHAGIA OSTEOPENIA CHOLELITHIASIS HEMORRHOIDS RECTAL MASS RESTLESS LEGS BREAST CANCER COPD OSTEOARTHRITIS ALLERGIES PENICILLIN (FOR ALLERGIES USE ONLY): JOINT PAIN - SIDE EFFECTS OXYCODONE HCL: DIZZINESS - SIDE EFFECTS HYDROCODONE BITARTRATE: DIZZINESS - SIDE EFFECTS SURGICAL HISTORY LEFT KNEE REPLACEMENT TONSILLECTOMY BILAT MASTECTOMY (LEFT RADICAL WITH NODES, RIGHT NO NODES REMOVED) RIGHT SUBCLAVIAN PORT PLACED AND REMOVED CHOLECYSTECTOMY REPAIR OF FISSURE 07/2019 FISTULA REPAIR 08/2019 PARTIAL RIGHT KNEE REPLACEMENT 07/2020 SOCIAL HISTORY GENERAL: TOBACCO USE ARE YOU A:FORMER SMOKER QUIT 10-05-2005 LATEX QUESTIONNAIRE LATEX ALLERGY : HAVE YOU EVER DEVELOPED ANY TYPE OF REACTION AFTER HANDLING LATEX PRODUCTS SUCH RUBBER GLOVES, CONDOMS, DIAPHRAGMS, BALLOONS, SOCKS, OR UNDERWEAR?NO LATEX ALLERGY : HAVE YOU EVER DEVELOPED ANY TYPE OF REACTION DURING OR AFTER DENTAL APPOINTMENT, VAGINAL/RECTAL EXAMINATION, SURGICAL PROCEDURE, OR ANY OTHER EXPOSURE?NO LATEX RISK : HAVE YOU EVER HAD ANY DIFFICULTY BREATHING OR HIVES AFTER EATING OR HANDLING ANY FRUITS, OR VEGETABLES; SUCH KIWI, BANANAS, STONE FRUITS, OR CHESTNUTSNO LATEX RISK : DO YOU HAVE A PREVIOUS PERSONAL HISTORY OF MORE THAN NINE SURGERIES, SPINA BIFIDA, OR REPEATED CATHERIZATIONS? NO LATEX RISK : ARE YOU FREQUENTLY EXPOSED TO LATEX PRODUCTS IN YOUR OCCUPATION?NO DATE ASKED : 02/17/2021 ALCOHOL USE: NO. ALCOHOL SCREENING DID YOU HAVE A DRINK CONTAINING ALCOHOL IN THE PAST YEAR?NO POINTS0 INTERPRETATIONNEGATIVE RECREATIONAL DRUG USE DRUG USE?NO SCIENTOLOGIST [id number] OTHER LANGUAGE LANGUAGES SPOKEN:[place] ISLANDER EDUCATION LEVEL OF EDUCATION:FINISHED [employer] DEGREE LEARNING BARRIERS / SPECIAL NEEDS CHANGE FROM LAST VISIT?NO BARRIERS TO LEARNING?NO HEARING IMPAIRED?NO VISION IMPAIRED?YES :CORRECTIVE LENSES COGNITIVELY IMPAIRED?NO READINESS TO LEARN?YES LEARNING PREFERENCES?NO LEARNING CAPABILITIES PRESENT?YES EMOTIONAL BARRIERS?NO SPECIAL DEVICES?YES :CANE NEEDED AQUATIC INSTRUCTOR NEEDED?NO OCCUPATION: RETIRED FROM [employer] WORKING WITH MENTALLY DISABLED. DIET: REGULAR. EXERCISE: NONE. MARITAL STATUS: SINGLE. TODAY'S VISIT 03/16/20, PATIENT DESCRIBES PAIN : ACHING, HAVE IT ALL THE TIME, STABBING, TENDER, SORE, SHOOTING, FROM 0-10, WHAT LEVEL IS YOUR PAIN TODAY? 6, PRECIPITATING FACTORS WALKING ALOT. GOING UP AND DOWN STAIRS, LIFTING AND HELPING HER HOUSE MATE, DAMP WEATHER, ALLEVIATING FACTORS HEAT, REST, IMPACT ON FUNCTION LIMITS HER ON WHAT SHE IS ABLE TO DO. - HAS THE PATIENT BEEN EDUCATED REGARDING HIS/HER PLAN OF CARE?YES HAS THE PATIENT BEEN EDUCATED REGARDING PAIN, THE RISK FOR PAIN, THE IMPORTANCE OF EFFECTIVE PAIN MANAGEMENT, AND THE PAIN ASSESSMENT PROCESS?YES ADVANCE DIRECTIVE ADVANCE DIRECTIVE DISCUSSED WITH PATIENT:YES HCP ON FILE @[facility] ELBA LAROSE ([place]STER) [phone] (HOME), (CELL) HOSPITALIZATION/MAJOR DIAGNOSTIC PROCEDURE SURGERIES REVIEW OF SYSTEMS CONSTITUTIONAL: ANY RECENT FEVER NO . CHILLS NO . WEIGHT CHANGE OF UNKNOWN REASONS NO . GASTROENTEROLOGY: NEW UNEXPLAINABLE CHANGES IN BOWEL CONTROL NO . CONSTIPATION NO . GENITOURINARY: ANY NEW CHANGE IN BLADDER CONTROL? NO . NEUROLOGY: NEW ONSET DIZZINESS OR NEUROLOGICAL CHANGES NOT MENTIONED NO . NEW NUMBNESS OR PAIN PATTERNS NOT MENTIONED AND PERTINENT TO TODAY'S VISIT NO . CARDIOLOGY: NEW CHEST PRESSURE NO . PATIENT DENIES NO . RESPIRATORY: UNEXPLAINABLE COUGH NO . NEW SHORTNESS OF BREATH NO . VITAL SIGNS WT 235 LBS, HT 69 IN, BMI 34.70 INDEX, BP 137/71 MM HG, HR 104 /MIN, RR 18 /MIN, TEMP 97.5 F, OXYGEN SAT % 96%, SAFE IN ENV? (Y/N) YEST.GENESIS MARK. EXAMINATION GENERAL EXAMINATION: GENERALAWAKE,ALERT ,PLEASANT . PSYCHAFFECT NORMAL . LUNGS:LUNG NAIR ARE CLEAR TO AUSCULTATION BILATERALLY. GOOD MOVEMENT OF AIR . HEART:S1, S2 IN A REGULAR RATE AND RHYTHM. NO SIGNIFICANT MURMURS, RUBS OR GALLOPS NOTED . ASSESSMENTS OTHER CHRONIC PAIN - G89.29 (PRIMARY) SACROILIITIS, NOT ELSEWHERE CLASSIFIED - M46.1 TREATMENT OTHER CHRONIC PAIN PAIN PROCEDURE LOGDATE OF PROCEDURE02/03/21PROCEDURE:BILATERAL SACROILIAC BLOCKAMOUNT OF PRE SEDATE0/0RESULT:MARKED REDUCTION IN PAIN CONTINUES PROCEDURE CODES FA211 ESTABILISHED PATIENT [facility] CHARGE DISPOSITION & COMMUNICATION FOLLOW UP 10 WKS (REASON: LOW BACK PAIN/RESPONDS WELL TO [facility]) ELECTRONICALLY SIGNED BY JUSTYN BOTELLO ON 02/18/2021 AT 09:09 AM EDT DISCLAIMER : THIS IS A VISIT SUMMARY EXTRACTED FROM THE [employer] CHART. IT IS NOT A COPY OF THE [employer] PROGRESS NOTE. JORDYN
--- NOTE | 2021-02-19 03:59 | ECWPNPC ---
PATIENT NAME: CYNTHIA LAROSE : 1950 GENDER: FEMALE VISIT DATE: 02/17/2021 DISCHARGE DATE: 02/17/21 1205 VISIT LOCKED DATE TIME: PHYSICIAN: SHASHI NGUYNE RESOURCE: SHASHI NGUYEN REASON FOR APPOINTMENT 1. POST BILATERAL SACROILIAC JOINT BLOCK HISTORY OF PRESENT ILLNESS GENERAL: HERE FOR POST PROCEDURE FOLLOW-UP. HAD BILATERAL SACROILIAC JOINT BLOCK ON 02/03/2021. REPORTING MARKED REDUCTION IN PAIN AND IMPROVED MOBILITY SINCE INJECTION. DR. BOOKER SPOKE TO HER ABOUT CONSIDERING PROCEDURE IN THE FUTURE BUT AFTER RESEARCHING PROCEDURE NOTE I AM NOT SURE WHAT IS PLANNED. IT MAY BE A RADIOFREQUENCY OF THE SACROILIAC NERVES. I WILL DISCUSS THIS WITH HIM AND GET BACK TO CYNTHIA. -. FALL RISK SCREENING: SCREENING : NO FALLS REPORTED IN THE LAST YEAR. PAIN SCREENING: PATIENT HAS A COMPLAINT OF ACUTE OR CHRONIC PAIN :YES LOCATION OF PAIN:LOW BACK INTENSITY OF PAIN (SCALE OF 1 TO 10):1 WHAT DOES YOUR PAIN FEEL LIKE:ACHING, SHOOTING DURATION:CONTINOUS, CONSTANT, ALL DAY PAIN IS INCREASED BY:ACTIVITIES PAIN IS DECREASED BY:USE OF PAIN MEDICATIONS NURSING NOTE: -. PAIN CENTER INTAKE QUESTIONS: DO YOU HAVE A HISTORY OF MRSA? :NO DO YOU TAKE A BLOOD THINNERS? :NO DO YOU HAVE ANY BLEEDING DISORDERS? :NO ANY NEW NUMBNESS OR WEAKNESS IN YOUR LEGS OR ARMS? :NO ANY PACEMAKER,DEFIBRILLATOR, OR DORSAL COLUMN STIMULATOR? :NO DO YOU HAVE ANY RASHES OR OPEN SORES? :NO ARE YOU ALLERGIC TO IV DYE? :NO ARE YOU DIABETIC? :NO ANY NEW PROBLEMS WITH YOUR MEDICATIONS? :NO HAVE YOU RECEIVED A VACCINE IN THE PAST 30 DAYS? :YES IF SO WHAT VACCINE AND WHEN? COVID 01/01/2021 DO YOU PLAN TO RECEIVE A VACCINE IN THE NEXT 21 DAYS? :NO DO YOU NEED ANY PRESCRIPTION? :NO DO YOU TAKE ANY IMMUNOSUPPRESSIVE MEDICATIONS? :NO IS THERE A CHANCE YOU COULD BE ? :NO ARE YOU BREAST FEEDING? :NO CURRENT MEDICATIONS TAKING ROPINIROLE HCL 0.5 MG TABLET 2.MG 2 TABLETS 1 TO 3 HOURS BEFORE BEDTIME ORALLY ONCE A DAY TAKING OMEPRAZOLE 20 MG CAPSULE DELAYED RELEASE 1 CAPSULE ORALLY ONCE A DAY TAKING OLODATEROL HCL 2.5 MCG/ACT AEROSOL SOLUTION 2 PUFFS INHALATION ONCE A DAY TAKING EZETIMIBE 10 MG TABLET 1 TABLET ORALLY ONCE A DAY TAKING ACETAMINOPHEN 500 MG TABLET 2 TABLETS ORALLY EVERY 6 HOURS NEEDED (MDD 3000 MG) TAKING CALTRATE 600 1500 (600 CA) MG TABLET 1 CAP ORALLY BID TAKING ASPIRIN 81 MG TABLET CHEWABLE 1 TABLET ORALLY TWICE A DAY TAKING GABAPENTIN 300 MG CAPSULE 1 CAPSULE ORALLY TWICE A DAY TAKING CELEBREX 100 MG CAPSULE 1 CAPSULE WITH FOOD ORALLY BID TAKING LIDOCAINE & ADHESIVE SHEET 5 % KIT DIRECTED EXTERNALLY PRN TAKING CYCLOBENZAPRINE HCL 10 MG TABLET 1 TABLET AT BEDTIME NEEDED ORALLY ONCE A DAY PRN NOT-TAKING CYCLOSPORINE 0.1 % EMULSION 1 DROP INTO AFFECTED EYE OPHTHALMIC BEFORE BEDTIME NOT-TAKING TIMOLOL MALEATE 0.25 % SOLUTION 1 DROP INTO AFFECTED EYE OPHTHALMIC ONCE A DAY NOT-TAKING TRAMADOL HCL 50 MG TABLET 1 TABLET NEEDED ORALLY EVERY 6 HRS NOT-TAKING LATANOPROST 0.005 % SOLUTION 1 DROP INTO AFFECTED EYE IN THE EVENING OPHTHALMIC ONCE A DAY NOT-TAKING MAY HAVE CBD OIL ORALLY BID NOT-TAKING ALBUTEROL SULFATE HFA 108 (90 BASE) MCG/ACT AEROSOL SOLUTION 2 PUFFS NEEDED INHALATION EVERY 6 HRS NOT-TAKING ATORVASTATIN CALCIUM 10 MG TABLET 1 TABLET ORALLY ONCE A DAY MEDICATION LIST REVIEWED AND RECONCILED WITH THE PATIENT PAST MEDICAL HISTORY GLAUCOMA LOW BACK PAIN ALLERGIC RHINITIS HYPERLIPIDEMIA DYSPEPSIA, DYSPHAGIA OSTEOPENIA CHOLELITHIASIS HEMORRHOIDS RECTAL MASS RESTLESS LEGS BREAST CANCER COPD OSTEOARTHRITIS ALLERGIES PENICILLIN (FOR ALLERGIES USE ONLY): JOINT PAIN - SIDE EFFECTS OXYCODONE HCL: DIZZINESS - SIDE EFFECTS HYDROCODONE BITARTRATE: DIZZINESS - SIDE EFFECTS SURGICAL HISTORY LEFT KNEE REPLACEMENT TONSILLECTOMY BILAT MASTECTOMY (LEFT RADICAL WITH NODES, RIGHT NO NODES REMOVED) RIGHT SUBCLAVIAN PORT PLACED AND REMOVED CHOLECYSTECTOMY REPAIR OF FISSURE 07/2019 FISTULA REPAIR 08/2019 PARTIAL RIGHT KNEE REPLACEMENT 07/2020 SOCIAL HISTORY GENERAL: TOBACCO USE ARE YOU A:FORMER SMOKER QUIT 10-05-2005 LATEX QUESTIONNAIRE LATEX ALLERGY : HAVE YOU EVER DEVELOPED ANY TYPE OF REACTION AFTER HANDLING LATEX PRODUCTS SUCH RUBBER GLOVES, CONDOMS, DIAPHRAGMS, BALLOONS, SOCKS, OR UNDERWEAR?NO LATEX ALLERGY : HAVE YOU EVER DEVELOPED ANY TYPE OF REACTION DURING OR AFTER DENTAL APPOINTMENT, VAGINAL/RECTAL EXAMINATION, SURGICAL PROCEDURE, OR ANY OTHER EXPOSURE?NO LATEX RISK : HAVE YOU EVER HAD ANY DIFFICULTY BREATHING OR HIVES AFTER EATING OR HANDLING ANY FRUITS, OR VEGETABLES; SUCH KIWI, BANANAS, STONE FRUITS, OR CHESTNUTSNO LATEX RISK : DO YOU HAVE A PREVIOUS PERSONAL HISTORY OF MORE THAN NINE SURGERIES, SPINA BIFIDA, OR REPEATED CATHERIZATIONS? NO LATEX RISK : ARE YOU FREQUENTLY EXPOSED TO LATEX PRODUCTS IN YOUR OCCUPATION?NO DATE ASKED : 02/17/2021 ALCOHOL USE: NO. 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 DIET: REGULAR. EXERCISE: NONE. MARITAL STATUS: SINGLE. TODAY'S VISIT 03/16/20, PATIENT DESCRIBES PAIN : ACHING, HAVE IT ALL THE TIME, STABBING, TENDER, SORE, SHOOTING, FROM 0-10, WHAT LEVEL IS YOUR PAIN TODAY? 6, PRECIPITATING FACTORS WALKING ALOT. GOING UP AND DOWN STAIRS, LIFTING AND HELPING HER HOUSE MATE, DAMP WEATHER, ALLEVIATING FACTORS HEAT, REST, IMPACT ON FUNCTION LIMITS HER ON WHAT SHE IS ABLE TO DO. - HAS THE PATIENT BEEN EDUCATED REGARDING HIS/HER PLAN OF CARE?YES HAS THE PATIENT BEEN EDUCATED REGARDING PAIN, THE RISK FOR PAIN, THE IMPORTANCE OF EFFECTIVE PAIN MANAGEMENT, AND THE PAIN ASSESSMENT PROCESS?YES ADVANCE DIRECTIVE ADVANCE DIRECTIVE DISCUSSED WITH PATIENT:YES HCP ON FILE @[facility] ELBA LAROSE ([place]) [phone] (HOME), (CELL) HOSPITALIZATION/MAJOR DIAGNOSTIC PROCEDURE SURGERIES REVIEW OF SYSTEMS CONSTITUTIONAL: ANY RECENT FEVER NO . CHILLS NO . WEIGHT CHANGE OF UNKNOWN REASONS NO . GASTROENTEROLOGY: NEW UNEXPLAINABLE CHANGES IN BOWEL CONTROL NO . CONSTIPATION NO . GENITOURINARY: ANY NEW CHANGE IN BLADDER CONTROL? NO . NEUROLOGY: NEW ONSET DIZZINESS OR NEUROLOGICAL CHANGES NOT MENTIONED NO . NEW NUMBNESS OR PAIN PATTERNS NOT MENTIONED AND PERTINENT TO TODAY'S VISIT NO . CARDIOLOGY: NEW CHEST PRESSURE NO . PATIENT DENIES NO . RESPIRATORY: UNEXPLAINABLE COUGH NO . NEW SHORTNESS OF BREATH NO . VITAL SIGNS WT 235 LBS, HT 69 IN, BMI 34.70 INDEX, BP 137/71 MM HG, HR 104 /MIN, RR 18 /MIN, TEMP 97.5 F, OXYGEN SAT % 96%, SAFE IN ENV? (Y/N) YEST.GENESIS MARK. EXAMINATION GENERAL EXAMINATION: GENERALAWAKE,ALERT ,PLEASANT . PSYCHAFFECT NORMAL . LUNGS:LUNG NAIR ARE CLEAR TO AUSCULTATION BILATERALLY. GOOD MOVEMENT OF AIR . HEART:S1, S2 IN A REGULAR RATE AND RHYTHM. NO SIGNIFICANT MURMURS, RUBS OR GALLOPS NOTED . ASSESSMENTS OTHER CHRONIC PAIN - G89.29 (PRIMARY) SACROILIITIS, NOT ELSEWHERE CLASSIFIED - M46.1 TREATMENT OTHER CHRONIC PAIN PAIN PROCEDURE LOGDATE OF PROCEDURE02/03/21PROCEDURE:BILATERAL SACROILIAC BLOCKAMOUNT OF PRE SEDATE0/0RESULT:MARKED REDUCTION IN PAIN CONTINUES PROCEDURE CODES FA211 ESTABILISHED PATIENT [facility] CHARGE DISPOSITION & COMMUNICATION FOLLOW UP 10 WKS (REASON: LOW BACK PAIN/RESPONDS WELL TO SIJ) ELECTRONICALLY SIGNED BY JUSTYN BOTELLO ON 02/18/2021 AT 09:09 AM EDT DISCLAIMER : THIS IS A VISIT SUMMARY EXTRACTED FROM THE [employer] CHART. IT IS NOT A COPY OF THE [employer] PROGRESS NOTE. JORDYN
--- NOTE | 2021-02-19 04:00 | ECWPNPC ---
PATIENT NAME: CYNTHIA LAROSE : 1950 GENDER: FEMALE VISIT DATE: 02/17/2021 DISCHARGE DATE: 02/17/21 1205 VISIT LOCKED DATE TIME: PHYSICIAN: SHASHI NGUYEN RESOURCE: SHASHI NGUYEN REASON FOR APPOINTMENT 1. POST BILATERAL SACROILIAC JOINT BLOCK HISTORY OF PRESENT ILLNESS GENERAL: HERE FOR POST PROCEDURE FOLLOW-UP. HAD BILATERAL SACROILIAC JOINT BLOCK ON 02/03/2021. REPORTING MARKED REDUCTION IN PAIN AND IMPROVED MOBILITY SINCE INJECTION. DR. BOOKER SPOKE TO HER ABOUT CONSIDERING PROCEDURE IN THE FUTURE BUT AFTER RESEARCHING PROCEDURE NOTE I AM NOT SURE WHAT IS PLANNED. IT MAY BE A RADIOFREQUENCY OF THE SACROILIAC NERVES. I WILL DISCUSS THIS WITH HIM AND GET BACK TO CYNTHIA. -. FALL RISK SCREENING: SCREENING : NO FALLS REPORTED IN THE LAST YEAR. PAIN SCREENING: PATIENT HAS A COMPLAINT OF ACUTE OR CHRONIC PAIN :YES LOCATION OF PAIN:LOW BACK INTENSITY OF PAIN (SCALE OF 1 TO 10):1 WHAT DOES YOUR PAIN FEEL LIKE:ACHING, SHOOTING DURATION:CONTINOUS, CONSTANT, ALL DAY PAIN IS INCREASED BY:ACTIVITIES PAIN IS DECREASED BY:USE OF PAIN MEDICATIONS NURSING NOTE: -. PAIN CENTER INTAKE QUESTIONS: DO YOU HAVE A HISTORY OF MRSA? :NO DO YOU TAKE A BLOOD THINNERS? :NO DO YOU HAVE ANY BLEEDING DISORDERS? :NO ANY NEW NUMBNESS OR WEAKNESS IN YOUR LEGS OR ARMS? :NO ANY PACEMAKER,DEFIBRILLATOR, OR DORSAL COLUMN STIMULATOR? :NO DO YOU HAVE ANY RASHES OR OPEN SORES? :NO ARE YOU ALLERGIC TO IV DYE? :NO ARE YOU DIABETIC? :NO ANY NEW PROBLEMS WITH YOUR MEDICATIONS? :NO HAVE YOU RECEIVED A VACCINE IN THE PAST 30 DAYS? :YES IF SO WHAT VACCINE AND WHEN? COVID 01/01/2021 DO YOU PLAN TO RECEIVE A VACCINE IN THE NEXT 21 DAYS? :NO DO YOU NEED ANY PRESCRIPTION? :NO DO YOU TAKE ANY IMMUNOSUPPRESSIVE MEDICATIONS? :NO IS THERE A CHANCE YOU COULD BE ? :NO ARE YOU BREAST FEEDING? :NO CURRENT MEDICATIONS TAKING ROPINIROLE HCL 0.5 MG TABLET 2.MG 2 TABLETS 1 TO 3 HOURS BEFORE BEDTIME ORALLY ONCE A DAY TAKING OMEPRAZOLE 20 MG CAPSULE DELAYED RELEASE 1 CAPSULE ORALLY ONCE A DAY TAKING OLODATEROL HCL 2.5 MCG/ACT AEROSOL SOLUTION 2 PUFFS INHALATION ONCE A DAY TAKING EZETIMIBE 10 MG TABLET 1 TABLET ORALLY ONCE A DAY TAKING ACETAMINOPHEN 500 MG TABLET 2 TABLETS ORALLY EVERY 6 HOURS NEEDED (MDD 3000 MG) TAKING CALTRATE 600 1500 (600 CA) MG TABLET 1 CAP ORALLY BID TAKING ASPIRIN 81 MG TABLET CHEWABLE 1 TABLET ORALLY TWICE A DAY TAKING GABAPENTIN 300 MG CAPSULE 1 CAPSULE ORALLY TWICE A DAY TAKING CELEBREX 100 MG CAPSULE 1 CAPSULE WITH FOOD ORALLY BID TAKING LIDOCAINE & ADHESIVE SHEET 5 % KIT DIRECTED EXTERNALLY PRN TAKING CYCLOBENZAPRINE HCL 10 MG TABLET 1 TABLET AT BEDTIME NEEDED ORALLY ONCE A DAY PRN NOT-TAKING CYCLOSPORINE 0.1 % EMULSION 1 DROP INTO AFFECTED EYE OPHTHALMIC BEFORE BEDTIME NOT-TAKING TIMOLOL MALEATE 0.25 % SOLUTION 1 DROP INTO AFFECTED EYE OPHTHALMIC ONCE A DAY NOT-TAKING TRAMADOL HCL 50 MG TABLET 1 TABLET NEEDED ORALLY EVERY 6 HRS NOT-TAKING LATANOPROST 0.005 % SOLUTION 1 DROP INTO AFFECTED EYE IN THE EVENING OPHTHALMIC ONCE A DAY NOT-TAKING MAY HAVE CBD OIL ORALLY BID NOT-TAKING ALBUTEROL SULFATE HFA 108 (90 BASE) MCG/ACT AEROSOL SOLUTION 2 PUFFS NEEDED INHALATION EVERY 6 HRS NOT-TAKING ATORVASTATIN CALCIUM 10 MG TABLET 1 TABLET ORALLY ONCE A DAY MEDICATION LIST REVIEWED AND RECONCILED WITH THE PATIENT PAST MEDICAL HISTORY GLAUCOMA LOW BACK PAIN ALLERGIC RHINITIS HYPERLIPIDEMIA DYSPEPSIA, DYSPHAGIA OSTEOPENIA CHOLELITHIASIS HEMORRHOIDS RECTAL MASS RESTLESS LEGS BREAST CANCER COPD OSTEOARTHRITIS ALLERGIES PENICILLIN (FOR ALLERGIES USE ONLY): JOINT PAIN - SIDE EFFECTS OXYCODONE HCL: DIZZINESS - SIDE EFFECTS HYDROCODONE BITARTRATE: DIZZINESS - SIDE EFFECTS SURGICAL HISTORY LEFT KNEE REPLACEMENT TONSILLECTOMY BILAT MASTECTOMY (LEFT RADICAL WITH NODES, RIGHT NO NODES REMOVED) RIGHT SUBCLAVIAN PORT PLACED AND REMOVED CHOLECYSTECTOMY REPAIR OF FISSURE 07/2019 FISTULA REPAIR 08/2019 PARTIAL RIGHT KNEE REPLACEMENT 07/2020 SOCIAL HISTORY GENERAL: TOBACCO USE ARE YOU A:FORMER SMOKER QUIT 10-05-2005 LATEX QUESTIONNAIRE LATEX ALLERGY : HAVE YOU EVER DEVELOPED ANY TYPE OF REACTION AFTER HANDLING LATEX PRODUCTS SUCH RUBBER GLOVES, CONDOMS, DIAPHRAGMS, BALLOONS, SOCKS, OR UNDERWEAR?NO LATEX ALLERGY : HAVE YOU EVER DEVELOPED ANY TYPE OF REACTION DURING OR AFTER DENTAL APPOINTMENT, VAGINAL/RECTAL EXAMINATION, SURGICAL PROCEDURE, OR ANY OTHER EXPOSURE?NO LATEX RISK : HAVE YOU EVER HAD ANY DIFFICULTY BREATHING OR HIVES AFTER EATING OR HANDLING ANY FRUITS, OR VEGETABLES; SUCH KIWI, BANANAS, STONE FRUITS, OR CHESTNUTSNO LATEX RISK : DO YOU HAVE A PREVIOUS PERSONAL HISTORY OF MORE THAN NINE SURGERIES, SPINA BIFIDA, OR REPEATED CATHERIZATIONS? NO LATEX RISK : ARE YOU FREQUENTLY EXPOSED TO LATEX PRODUCTS IN YOUR OCCUPATION?NO DATE ASKED : 02/17/2021 ALCOHOL USE: NO. 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 DIET: REGULAR. EXERCISE: NONE. MARITAL STATUS: SINGLE. TODAY'S VISIT 03/16/20, PATIENT DESCRIBES PAIN : ACHING, HAVE IT ALL THE TIME, STABBING, TENDER, SORE, SHOOTING, FROM 0-10, WHAT LEVEL IS YOUR PAIN TODAY? 6, PRECIPITATING FACTORS WALKING ALOT. GOING UP AND DOWN STAIRS, LIFTING AND HELPING HER HOUSE MATE, DAMP WEATHER, ALLEVIATING FACTORS HEAT, REST, IMPACT ON FUNCTION LIMITS HER ON WHAT SHE IS ABLE TO DO. - HAS THE PATIENT BEEN EDUCATED REGARDING HIS/HER PLAN OF CARE?YES HAS THE PATIENT BEEN EDUCATED REGARDING PAIN, THE RISK FOR PAIN, THE IMPORTANCE OF EFFECTIVE PAIN MANAGEMENT, AND THE PAIN ASSESSMENT PROCESS?YES ADVANCE DIRECTIVE ADVANCE DIRECTIVE DISCUSSED WITH PATIENT:YES HCP ON FILE @[facility] ELBA LAROSE ([place]) [phone] (HOME), (CELL) HOSPITALIZATION/MAJOR DIAGNOSTIC PROCEDURE SURGERIES REVIEW OF SYSTEMS CONSTITUTIONAL: ANY RECENT FEVER NO . CHILLS NO . WEIGHT CHANGE OF UNKNOWN REASONS NO . GASTROENTEROLOGY: NEW UNEXPLAINABLE CHANGES IN BOWEL CONTROL NO . CONSTIPATION NO . GENITOURINARY: ANY NEW CHANGE IN BLADDER CONTROL? NO . NEUROLOGY: NEW ONSET DIZZINESS OR NEUROLOGICAL CHANGES NOT MENTIONED NO . NEW NUMBNESS OR PAIN PATTERNS NOT MENTIONED AND PERTINENT TO TODAY'S VISIT NO . CARDIOLOGY: NEW CHEST PRESSURE NO . PATIENT DENIES NO . RESPIRATORY: UNEXPLAINABLE COUGH NO . NEW SHORTNESS OF BREATH NO . VITAL SIGNS WT 235 LBS, HT 69 IN, BMI 34.70 INDEX, BP 137/71 MM HG, HR 104 /MIN, RR 18 /MIN, TEMP 97.5 F, OXYGEN SAT % 96%, SAFE IN ENV? (Y/N) YEST.GENESIS MARK. EXAMINATION GENERAL EXAMINATION: GENERALAWAKE,ALERT ,PLEASANT . PSYCHAFFECT NORMAL . LUNGS:LUNG NAIR ARE CLEAR TO AUSCULTATION BILATERALLY. GOOD MOVEMENT OF AIR . HEART:S1, S2 IN A REGULAR RATE AND RHYTHM. NO SIGNIFICANT MURMURS, RUBS OR GALLOPS NOTED . ASSESSMENTS OTHER CHRONIC PAIN - G89.29 (PRIMARY) SACROILIITIS, NOT ELSEWHERE CLASSIFIED - M46.1 TREATMENT OTHER CHRONIC PAIN PAIN PROCEDURE LOGDATE OF PROCEDURE02/03/21PROCEDURE:BILATERAL SACROILIAC BLOCKAMOUNT OF PRE SEDATE0/0RESULT:MARKED REDUCTION IN PAIN CONTINUES PROCEDURE CODES FA211 ESTABILISHED PATIENT [facility] CHARGE DISPOSITION & COMMUNICATION FOLLOW UP 10 WKS (REASON: LOW BACK PAIN/RESPONDS WELL TO SIJ) ELECTRONICALLY SIGNED BY JUSTYN BOTELLO ON 02/18/2021 AT 09:09 AM EDT DISCLAIMER : THIS IS A VISIT SUMMARY EXTRACTED FROM THE [employer] CHART. IT IS NOT A COPY OF THE [employer] PROGRESS NOTE. JORDYN
--- NOTE | 2021-02-19 04:02 | ECWPNPC ---
PATIENT NAME: CYNTHIA LAROSE : 1950 GENDER: FEMALE VISIT DATE: 02/17/2021 DISCHARGE DATE: 02/17/21 1205 VISIT LOCKED DATE TIME: PHYSICIAN: SHASHI NGUYEN RESOURCE: SHASHI NGUYEN REASON FOR APPOINTMENT 1. POST BILATERAL SACROILIAC JOINT BLOCK HISTORY OF PRESENT ILLNESS GENERAL: HERE FOR POST PROCEDURE FOLLOW-UP. HAD BILATERAL SACROILIAC JOINT BLOCK ON 02/03/2021. REPORTING MARKED REDUCTION IN PAIN AND IMPROVED MOBILITY SINCE INJECTION. DR. BOOKER SPOKE TO HER ABOUT CONSIDERING PROCEDURE IN THE FUTURE BUT AFTER RESEARCHING PROCEDURE NOTE I AM NOT SURE WHAT IS PLANNED. IT MAY BE A RADIOFREQUENCY OF THE SACROILIAC NERVES. I WILL DISCUSS THIS WITH HIM AND GET BACK TO CYNTHIA. -. FALL RISK SCREENING: SCREENING : NO FALLS REPORTED IN THE LAST YEAR. PAIN SCREENING: PATIENT HAS A COMPLAINT OF ACUTE OR CHRONIC PAIN :YES LOCATION OF PAIN:LOW BACK INTENSITY OF PAIN (SCALE OF 1 TO 10):1 WHAT DOES YOUR PAIN FEEL LIKE:ACHING, SHOOTING DURATION:CONTINOUS, CONSTANT, ALL DAY PAIN IS INCREASED BY:ACTIVITIES PAIN IS DECREASED BY:USE OF PAIN MEDICATIONS NURSING NOTE: -. PAIN CENTER INTAKE QUESTIONS: DO YOU HAVE A HISTORY OF MRSA? :NO DO YOU TAKE A BLOOD THINNERS? :NO DO YOU HAVE ANY BLEEDING DISORDERS? :NO ANY NEW NUMBNESS OR WEAKNESS IN YOUR LEGS OR ARMS? :NO ANY PACEMAKER,DEFIBRILLATOR, OR DORSAL COLUMN STIMULATOR? :NO DO YOU HAVE ANY RASHES OR OPEN SORES? :NO ARE YOU ALLERGIC TO IV DYE? :NO ARE YOU DIABETIC? :NO ANY NEW PROBLEMS WITH YOUR MEDICATIONS? :NO HAVE YOU RECEIVED A VACCINE IN THE PAST 30 DAYS? :YES IF SO WHAT VACCINE AND WHEN? COVID 01/01/2021 DO YOU PLAN TO RECEIVE A VACCINE IN THE NEXT 21 DAYS? :NO DO YOU NEED ANY PRESCRIPTION? :NO DO YOU TAKE ANY IMMUNOSUPPRESSIVE MEDICATIONS? :NO IS THERE A CHANCE YOU COULD BE ? :NO ARE YOU BREAST FEEDING? :NO CURRENT MEDICATIONS TAKING ROPINIROLE HCL 0.5 MG TABLET 2.MG 2 TABLETS 1 TO 3 HOURS BEFORE BEDTIME ORALLY ONCE A DAY TAKING OMEPRAZOLE 20 MG CAPSULE DELAYED RELEASE 1 CAPSULE ORALLY ONCE A DAY TAKING OLODATEROL HCL 2.5 MCG/ACT AEROSOL SOLUTION 2 PUFFS INHALATION ONCE A DAY TAKING EZETIMIBE 10 MG TABLET 1 TABLET ORALLY ONCE A DAY TAKING ACETAMINOPHEN 500 MG TABLET 2 TABLETS ORALLY EVERY 6 HOURS NEEDED (MDD 3000 MG) TAKING CALTRATE 600 1500 (600 CA) MG TABLET 1 CAP ORALLY BID TAKING ASPIRIN 81 MG TABLET CHEWABLE 1 TABLET ORALLY TWICE A DAY TAKING GABAPENTIN 300 MG CAPSULE 1 CAPSULE ORALLY TWICE A DAY TAKING CELEBREX 100 MG CAPSULE 1 CAPSULE WITH FOOD ORALLY BID TAKING LIDOCAINE & ADHESIVE SHEET 5 % KIT DIRECTED EXTERNALLY PRN TAKING CYCLOBENZAPRINE HCL 10 MG TABLET 1 TABLET AT BEDTIME NEEDED ORALLY ONCE A DAY PRN NOT-TAKING CYCLOSPORINE 0.1 % EMULSION 1 DROP INTO AFFECTED EYE OPHTHALMIC BEFORE BEDTIME NOT-TAKING TIMOLOL MALEATE 0.25 % SOLUTION 1 DROP INTO AFFECTED EYE OPHTHALMIC ONCE A DAY NOT-TAKING TRAMADOL HCL 50 MG TABLET 1 TABLET NEEDED ORALLY EVERY 6 HRS NOT-TAKING LATANOPROST 0.005 % SOLUTION 1 DROP INTO AFFECTED EYE IN THE EVENING OPHTHALMIC ONCE A DAY NOT-TAKING MAY HAVE CBD OIL ORALLY BID NOT-TAKING ALBUTEROL SULFATE HFA 108 (90 BASE) MCG/ACT AEROSOL SOLUTION 2 PUFFS NEEDED INHALATION EVERY 6 HRS NOT-TAKING ATORVASTATIN CALCIUM 10 MG TABLET 1 TABLET ORALLY ONCE A DAY MEDICATION LIST REVIEWED AND RECONCILED WITH THE PATIENT PAST MEDICAL HISTORY GLAUCOMA LOW BACK PAIN ALLERGIC RHINITIS HYPERLIPIDEMIA DYSPEPSIA, DYSPHAGIA OSTEOPENIA CHOLELITHIASIS HEMORRHOIDS RECTAL MASS RESTLESS LEGS BREAST CANCER COPD OSTEOARTHRITIS ALLERGIES PENICILLIN (FOR ALLERGIES USE ONLY): JOINT PAIN - SIDE EFFECTS OXYCODONE HCL: DIZZINESS - SIDE EFFECTS HYDROCODONE BITARTRATE: DIZZINESS - SIDE EFFECTS SURGICAL HISTORY LEFT KNEE REPLACEMENT TONSILLECTOMY BILAT MASTECTOMY (LEFT RADICAL WITH NODES, RIGHT NO NODES REMOVED) RIGHT SUBCLAVIAN PORT PLACED AND REMOVED CHOLECYSTECTOMY REPAIR OF FISSURE 07/2019 FISTULA REPAIR 08/2019 PARTIAL RIGHT KNEE REPLACEMENT 07/2020 SOCIAL HISTORY GENERAL: TOBACCO USE ARE YOU A:FORMER SMOKER QUIT 10-05-2005 LATEX QUESTIONNAIRE LATEX ALLERGY : HAVE YOU EVER DEVELOPED ANY TYPE OF REACTION AFTER HANDLING LATEX PRODUCTS SUCH RUBBER GLOVES, CONDOMS, DIAPHRAGMS, BALLOONS, SOCKS, OR UNDERWEAR?NO LATEX ALLERGY : HAVE YOU EVER DEVELOPED ANY TYPE OF REACTION DURING OR AFTER DENTAL APPOINTMENT, VAGINAL/RECTAL EXAMINATION, SURGICAL PROCEDURE, OR ANY OTHER EXPOSURE?NO LATEX RISK : HAVE YOU EVER HAD ANY DIFFICULTY BREATHING OR HIVES AFTER EATING OR HANDLING ANY FRUITS, OR VEGETABLES; SUCH KIWI, BANANAS, STONE FRUITS, OR CHESTNUTSNO LATEX RISK : DO YOU HAVE A PREVIOUS PERSONAL HISTORY OF MORE THAN NINE SURGERIES, SPINA BIFIDA, OR REPEATED CATHERIZATIONS? NO LATEX RISK : ARE YOU FREQUENTLY EXPOSED TO LATEX PRODUCTS IN YOUR OCCUPATION?NO DATE ASKED : 02/17/2021 ALCOHOL USE: NO. 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 DIET: REGULAR. EXERCISE: NONE. MARITAL STATUS: SINGLE. TODAY'S VISIT 03/16/20, PATIENT DESCRIBES PAIN : ACHING, HAVE IT ALL THE TIME, STABBING, TENDER, SORE, SHOOTING, FROM 0-10, WHAT LEVEL IS YOUR PAIN TODAY? 6, PRECIPITATING FACTORS WALKING ALOT. GOING UP AND DOWN STAIRS, LIFTING AND HELPING HER HOUSE MATE, DAMP WEATHER, ALLEVIATING FACTORS HEAT, REST, IMPACT ON FUNCTION LIMITS HER ON WHAT SHE IS ABLE TO DO. - HAS THE PATIENT BEEN EDUCATED REGARDING HIS/HER PLAN OF CARE?YES HAS THE PATIENT BEEN EDUCATED REGARDING PAIN, THE RISK FOR PAIN, THE IMPORTANCE OF EFFECTIVE PAIN MANAGEMENT, AND THE PAIN ASSESSMENT PROCESS?YES ADVANCE DIRECTIVE ADVANCE DIRECTIVE DISCUSSED WITH PATIENT:YES HCP ON FILE @[facility] ELBA LAROSE (SISTER) [phone] (HOME), (CELL) HOSPITALIZATION/MAJOR DIAGNOSTIC PROCEDURE SURGERIES REVIEW OF SYSTEMS CONSTITUTIONAL: ANY RECENT FEVER NO . CHILLS NO . WEIGHT CHANGE OF UNKNOWN REASONS NO . GASTROENTEROLOGY: NEW UNEXPLAINABLE CHANGES IN BOWEL CONTROL NO . CONSTIPATION NO . GENITOURINARY: ANY NEW CHANGE IN BLADDER CONTROL? NO . NEUROLOGY: NEW ONSET DIZZINESS OR NEUROLOGICAL CHANGES NOT MENTIONED NO . NEW NUMBNESS OR PAIN PATTERNS NOT MENTIONED AND PERTINENT TO TODAY'S VISIT NO . CARDIOLOGY: NEW CHEST PRESSURE NO . PATIENT DENIES NO . RESPIRATORY: UNEXPLAINABLE COUGH NO . NEW SHORTNESS OF BREATH NO . VITAL SIGNS WT 235 LBS, HT 69 IN, BMI 34.70 INDEX, BP 137/71 MM HG, HR 104 /MIN, RR 18 /MIN, TEMP 97.5 F, OXYGEN SAT % 96%, SAFE IN ENV? (Y/N) YEST.GENESIS MARK. EXAMINATION GENERAL EXAMINATION: GENERALAWAKE,ALERT ,PLEASANT . PSYCHAFFECT NORMAL . LUNGS:LUNG NAIR ARE CLEAR TO AUSCULTATION BILATERALLY. GOOD MOVEMENT OF AIR . HEART:S1, S2 IN A REGULAR RATE AND RHYTHM. NO SIGNIFICANT MURMURS, RUBS OR GALLOPS NOTED . ASSESSMENTS OTHER CHRONIC PAIN - G89.29 (PRIMARY) SACROILIITIS, NOT ELSEWHERE CLASSIFIED - M46.1 TREATMENT OTHER CHRONIC PAIN PAIN PROCEDURE LOGDATE OF PROCEDURE02/03/21PROCEDURE:BILATERAL SACROILIAC BLOCKAMOUNT OF PRE SEDATE0/0RESULT:MARKED REDUCTION IN PAIN CONTINUES PROCEDURE CODES FA211 ESTABILISHED PATIENT [facility] CHARGE DISPOSITION & COMMUNICATION FOLLOW UP 10 WKS (REASON: LOW BACK PAIN/RESPONDS WELL TO SIJ) ELECTRONICALLY SIGNED BY JUSTYN BOTELLO ON 02/18/2021 AT 09:09 AM EDT DISCLAIMER : THIS IS A VISIT SUMMARY EXTRACTED FROM THE [employer] CHART. IT IS NOT A COPY OF THE [employer] PROGRESS NOTE. JORDYN
== END ==
LOC: M PAIN 11:30
PROVIDERS: ATTEND Nurse Practitioner Family
DX: G89.29 Other chronic pain (principal); M46.1 Sacroiliitis, not elsewhere classified; H40.9 Unspecified glaucoma; J30.9 Allergic rhinitis, unspecified; E78.5 Hyperlipidemia, unspecified; G25.81 Restless legs syndrome; J44.9 Chronic obstructive pulmonary disease, unspecified; M19.90 Unspecified osteoarthritis, unspecified site; Z87.891 Personal history of nicotine dependence; Z79.82 Long term (current) use of aspirin; Z79.899 Other long term (current) drug therapy; Z88.0 Allergy status to penicillin; Z88.5 Allergy status to narcotic agent

== ENCOUNTER → 2021-05-03 | Outpatient (CLI) | payer OTHER ==
--- NOTE | 2021-05-05 03:52 | ECWPNPC ---
PATIENT NAME: CYNTHIA LAROSE : 1950 GENDER: FEMALE VISIT DATE: 05/03/2021 DISCHARGE DATE: 05/03/21 1207 VISIT LOCKED DATE TIME: PHYSICIAN: SHASHI NGUYEN RESOURCE: SHASHI NGUYEN REASON FOR APPOINTMENT 1. LOW BACK PAIN/RESPONDS WELL TO SIJ HISTORY OF PRESENT ILLNESS GENERAL: HERE FOR FOLLOW-UP OF CHRONIC LOW BACK PAIN. PAIN HAS BEGUN TO RETURN. PAIN IS AGGRAVATED BY WALKING OR STANDING. HAS BENEFITED FROM SACROILIAC JOINT BLOCKS IN THE PAST. RELIEF FROM THESE INJECTIONS LAST SEVERAL MONTHS. - - -. FALL RISK SCREENING: SCREENING ONE FALLS REPORTED IN THE LAST YEAR WITH INJURY. PATIENT DID NOT SEEK IMMEDIATE MEDICAL TREATMENT.. PAIN SCREENING: PATIENT HAS A COMPLAINT OF ACUTE OR CHRONIC PAIN :YES LOCATION OF PAIN:LOW BACK, LEG(S) INTENSITY OF PAIN (SCALE OF 1 TO 10):3 WHAT DOES YOUR PAIN FEEL LIKE:CONTINOUS, SORE DURATION:CONTINOUS, CONSTANT PAIN IS INCREASED BY:ACTIVITIES, PROLONGED STANDING PAIN IS DECREASED BY:USE OF PAIN MEDICATIONS LAYING DOWN NURSING NOTE: -. PAIN CENTER INTAKE QUESTIONS: DO YOU HAVE A HISTORY OF MRSA? :NO DO YOU TAKE A BLOOD THINNERS? :NO DO YOU HAVE ANY BLEEDING DISORDERS? :NO ANY NEW NUMBNESS OR WEAKNESS IN YOUR LEGS OR ARMS? :NO ANY PACEMAKER,DEFIBRILLATOR, OR DORSAL COLUMN STIMULATOR? :NO DO YOU HAVE ANY RASHES OR OPEN SORES? :NO ARE YOU ALLERGIC TO IV DYE? :NO ARE YOU DIABETIC? :NO ANY NEW PROBLEMS WITH YOUR MEDICATIONS? :NO HAVE YOU RECEIVED A VACCINE IN THE PAST 30 DAYS? :NO SECOND COVID VACCINATION 01/01/2021 DO YOU PLAN TO RECEIVE A VACCINE IN THE NEXT 21 DAYS? :NO DO YOU NEED ANY PRESCRIPTION? :NO DO YOU TAKE ANY IMMUNOSUPPRESSIVE MEDICATIONS? :NO IS THERE A CHANCE YOU COULD BE ? :NO ARE YOU BREAST FEEDING? :NO CURRENT MEDICATIONS TAKING ROPINIROLE HCL 0.5 MG TABLET 2.MG 2 TABLETS 1 TO 3 HOURS BEFORE BEDTIME ORALLY ONCE A DAY TAKING OMEPRAZOLE 20 MG CAPSULE DELAYED RELEASE 1 CAPSULE ORALLY ONCE A DAY TAKING OLODATEROL HCL 2.5 MCG/ACT AEROSOL SOLUTION 2 PUFFS INHALATION ONCE A DAY TAKING EZETIMIBE 10 MG TABLET 1 TABLET ORALLY ONCE A DAY TAKING ACETAMINOPHEN 500 MG TABLET 2 TABLETS ORALLY EVERY 6 HOURS NEEDED (MDD 3000 MG) TAKING CALTRATE 600 1500 (600 CA) MG TABLET 1 CAP ORALLY BID TAKING ASPIRIN 81 MG TABLET CHEWABLE 1 TABLET ORALLY TWICE A DAY TAKING GABAPENTIN 300 MG CAPSULE 1 CAPSULE ORALLY TWICE A DAY TAKING CELEBREX 100 MG CAPSULE 1 CAPSULE WITH FOOD ORALLY BID TAKING LIDOCAINE & ADHESIVE SHEET 5 % KIT DIRECTED EXTERNALLY PRN TAKING CYCLOBENZAPRINE HCL 10 MG TABLET 1 TABLET AT BEDTIME NEEDED ORALLY ONCE A DAY PRN NOT-TAKING CYCLOSPORINE 0.1 % EMULSION 1 DROP INTO AFFECTED EYE OPHTHALMIC BEFORE BEDTIME NOT-TAKING TIMOLOL MALEATE 0.25 % SOLUTION 1 DROP INTO AFFECTED EYE OPHTHALMIC ONCE A DAY NOT-TAKING TRAMADOL HCL 50 MG TABLET 1 TABLET NEEDED ORALLY EVERY 6 HRS NOT-TAKING LATANOPROST 0.005 % SOLUTION 1 DROP INTO AFFECTED EYE IN THE EVENING OPHTHALMIC ONCE A DAY NOT-TAKING MAY HAVE CBD OIL ORALLY BID NOT-TAKING ALBUTEROL SULFATE HFA 108 (90 BASE) MCG/ACT AEROSOL SOLUTION 2 PUFFS NEEDED INHALATION EVERY 6 HRS NOT-TAKING ATORVASTATIN CALCIUM 10 MG TABLET 1 TABLET ORALLY ONCE A DAY MEDICATION LIST REVIEWED AND RECONCILED WITH THE PATIENT PAST MEDICAL HISTORY GLAUCOMA LOW BACK PAIN ALLERGIC RHINITIS HYPERLIPIDEMIA DYSPEPSIA, DYSPHAGIA OSTEOPENIA CHOLELITHIASIS HEMORRHOIDS RECTAL MASS RESTLESS LEGS BREAST CANCER COPD OSTEOARTHRITIS ALLERGIES PENICILLIN (FOR ALLERGIES USE ONLY): JOINT PAIN - SIDE EFFECTS OXYCODONE HCL: DIZZINESS - SIDE EFFECTS HYDROCODONE BITARTRATE: DIZZINESS - SIDE EFFECTS SOCIAL HISTORY GENERAL: TOBACCO USE ARE YOU A:FORMER SMOKER QUIT 10-05-2005 LATEX QUESTIONNAIRE LATEX ALLERGY : HAVE YOU EVER DEVELOPED ANY TYPE OF REACTION AFTER HANDLING LATEX PRODUCTS SUCH RUBBER GLOVES, CONDOMS, DIAPHRAGMS, BALLOONS, SOCKS, OR UNDERWEAR?NO LATEX ALLERGY : HAVE YOU EVER DEVELOPED ANY TYPE OF REACTION DURING OR AFTER DENTAL APPOINTMENT, VAGINAL/RECTAL EXAMINATION, SURGICAL PROCEDURE, OR ANY OTHER EXPOSURE?NO LATEX RISK : HAVE YOU EVER HAD ANY DIFFICULTY BREATHING OR HIVES AFTER EATING OR HANDLING ANY FRUITS, OR VEGETABLES; SUCH KIWI, BANANAS, STONE FRUITS, OR CHESTNUTSNO LATEX RISK : DO YOU HAVE A PREVIOUS PERSONAL HISTORY OF MORE THAN NINE SURGERIES, SPINA BIFIDA, OR REPEATED CATHERIZATIONS? NO LATEX RISK : ARE YOU FREQUENTLY EXPOSED TO LATEX PRODUCTS IN YOUR OCCUPATION?NO DATE ASKED : 05/03/2021 ALCOHOL USE: NO. ALCOHOL SCREENING DID YOU HAVE A DRINK CONTAINING ALCOHOL IN THE PAST YEAR?NO POINTS0 INTERPRETATIONNEGATIVE RECREATIONAL DRUG USE DRUG USE?NO TAOISM [id number] OTHER LANGUAGE LANGUAGES SPOKEN:BOLIVIAN EDUCATION LEVEL OF EDUCATION:FINISHED COLLEGE ASSOCIATES DEGREE LEARNING BARRIERS / SPECIAL NEEDS CHANGE FROM LAST VISIT?NO BARRIERS TO LEARNING?NO HEARING IMPAIRED?NO VISION IMPAIRED?YES :CORRECTIVE LENSES COGNITIVELY IMPAIRED?NO READINESS TO LEARN?YES LEARNING PREFERENCES?NO LEARNING CAPABILITIES PRESENT?YES EMOTIONAL BARRIERS?NO SPECIAL DEVICES?YES :CANE NEEDED LIFESTYLE COORDINATOR NEEDED?NO OCCUPATION: RETIRED FROM [employer] WORKING WITH MENTALLY DISABLED. DIET: REGULAR. EXERCISE: NONE. MARITAL STATUS: SINGLE. TODAY'S VISIT 03/16/20, PATIENT DESCRIBES PAIN : ACHING, HAVE IT ALL THE TIME, STABBING, TENDER, SORE, SHOOTING, FROM 0-10, WHAT LEVEL IS YOUR PAIN TODAY? 6, PRECIPITATING FACTORS WALKING ALOT. GOING UP AND DOWN STAIRS, LIFTING AND HELPING HER HOUSE MATE, DAMP WEATHER, ALLEVIATING FACTORS HEAT, REST, IMPACT ON FUNCTION LIMITS HER ON WHAT SHE IS ABLE TO DO. - HAS THE PATIENT BEEN EDUCATED REGARDING HIS/HER PLAN OF CARE?YES HAS THE PATIENT BEEN EDUCATED REGARDING PAIN, THE RISK FOR PAIN, THE IMPORTANCE OF EFFECTIVE PAIN MANAGEMENT, AND THE PAIN ASSESSMENT PROCESS?YES ADVANCE DIRECTIVE ADVANCE DIRECTIVE DISCUSSED WITH PATIENT:YES HCP ON FILE @[facility] ([place]) [phone] (HOME), (CELL) REVIEW OF SYSTEMS CONSTITUTIONAL: ANY RECENT FEVER NO . CHILLS NO . WEIGHT CHANGE OF UNKNOWN REASONS NO . GASTROENTEROLOGY: NEW UNEXPLAINABLE CHANGES IN BOWEL CONTROL NO . CONSTIPATION NO . GENITOURINARY: ANY NEW CHANGE IN BLADDER CONTROL? NO . NEUROLOGY: NEW ONSET DIZZINESS OR NEUROLOGICAL CHANGES NOT MENTIONED NO . NEW NUMBNESS OR PAIN PATTERNS NOT MENTIONED AND PERTINENT TO TODAY'S VISIT NO . CARDIOLOGY: NEW CHEST PRESSURE NO . PATIENT DENIES NO . RESPIRATORY: UNEXPLAINABLE COUGH NO . NEW SHORTNESS OF BREATH NO . VITAL SIGNS WT 234.0 LBS, HT 69 IN, BMI 34.55 INDEX, BP 133/62 MM HG, HR 101 /MIN, RR 18 /MIN, TEMP 97.2 F, OXYGEN SAT % 96%, SAFE IN ENV? (Y/N) YES, NA INITIALS AW 1123, REVIEWED BY: CARLOS MILTON MA. EXAMINATION GENERAL EXAMINATION: GENERAL AWAKE,ALERT ,PLEAASANT . PSYCH AFFECT NORMAL . NECK:TRACHEA MIDLINE. NO CERVICAL OR SUPRACLAVICULAR LYMPHADENOPATHY NOTED. LUNGS: LUNG NAIR ARE CLEAR TO AUSCULTATION BILATERALLY. GOOD MOVEMENT OF AIR . HEART: S1, S2 IN A REGULAR RATE AND RHYTHM. NO SIGNIFICANT MURMURS, RUBS OR GALLOPS NOTED . MUSCULOSKELETAL:MUSCLE STRENGTH TESTING 5/5 BILATERAL LOWER EXTREMITIES , PALPATION: POSITIVE FOR PAIN OVER L/S SPINE. POSITIVE FOR PAIN OVER L/S PARSPINALS SPECIFIC POINT TENDERNESS OVER BILATERAL SIJ. NEUROLOGIC EXAM:NORMAL SENSATION TO LIGHT TOUCH LOWER EXTREMITIES. DIAGNOSTIC:MRI L/S 02-28-18-REVIEWED. ASSESSMENTS SACROILIITIS, NOT ELSEWHERE CLASSIFIED - M46.1 (PRIMARY) TREATMENT SACROILIITIS, NOT ELSEWHERE CLASSIFIED NOTES: BILATERAL SACROILIAC JOINT BLOCK. CLINICAL NOTES: PREPROCEDURE AND PROCEDURE INFORMATION PRINTED AND PROVIDED TO PATIENT. PATIENT VERBALIZED AN UNDERSTANDING. MARISOL MILTON MA. PROCEDURE CODES FA211 ESTABILISHED PATIENT [facility] CHARGE DISPOSITION & COMMUNICATION FOLLOW UP POST (REASON: BILATERAL SACROILIAC JOINT BLOCK ) ELECTRONICALLY SIGNED BY JUSTYN BOTELLO ON 05/04/2021 AT 02:38 PM EDT DISCLAIMER : THIS IS A VISIT SUMMARY EXTRACTED FROM THE [employer] CHART. IT IS NOT A COPY OF THE [employer] PROGRESS NOTE. JORDYN
== END ==
LOC: M PAIN 11:30
PROVIDERS: ATTEND Nurse Practitioner Family
DX: M46.1 Sacroiliitis, not elsewhere classified (principal); H40.9 Unspecified glaucoma; J30.9 Allergic rhinitis, unspecified; E78.5 Hyperlipidemia, unspecified; R10.13 Epigastric pain; R13.10 Dysphagia, unspecified; G25.81 Restless legs syndrome; J44.9 Chronic obstructive pulmonary disease, unspecified; M19.90 Unspecified osteoarthritis, unspecified site; Z85.3 Personal history of malignant neoplasm of breast; Z87.891 Personal history of nicotine dependence; Z79.82 Long term (current) use of aspirin; Z79.899 Other long term (current) drug therapy; Z88.0 Allergy status to penicillin; Z88.5 Allergy status to narcotic agent

== ENCOUNTER → 2021-05-12 | Outpatient (REF) | payer OTHER ==
[2021-05-12 14:13] LABS: APPEARANCE, URINE CLEAR (CLEAR); BACTERIA, URINE AUTO NEGATIVE (NEGATIVE); BILIRUBIN, URINE AUTO NEGATIVE (NEGATIVE); BLOOD, URINE BLOOD NEGATIVE (NEGATIVE); COLOR, URINE YELLOW (YELLOW); GLUCOSE, URINE (UA) AUTO NEGATIVE (NEGATIVE); KETONE, URINE AUTO NEGATIVE (NEGATIVE); LEUKOCYTE ESTERASE, URINE AUTO NEGATIVE (NEGATIVE); NITRITE, URINE AUTO NEGATIVE (NEGATIVE); PROTEIN, URINE AUTO NEGATIVE (NEGATIVE); RBC, URINE AUTO 0 /HPF (0-3); SPECIFIC GRAVITY URINE AUTO 1.012 (1.002-1.035); SQUAMOUS EPITHELIAL CELL UR AU 0 /HPF (0-6); UROBILINOGEN, URINE AUTO 0.2 mg/dL (0.0-2.0); WBC, URINE AUTO 1 /HPF (0-3)
== END ==
LOC: M SMT 12:49
PROVIDERS: ATTEND Nurse Practitioner Family
DX: R32 Unspecified urinary incontinence (principal)
CPT/HCPCS: 51798; 81001; 87086; G0463

== ENCOUNTER → 2021-06-09 | Outpatient (CLI) | payer OTHER | LOC: M LABSMTC 09:53 | PROVIDERS: ATTEND Anesthesiology | DX: Z01.818 Encounter for other preprocedural examination (principal); Z11.52 Encounter for screening for COVID-19 ==

== ENCOUNTER → 2021-06-14 | Outpatient (CLI) | payer OTHER ==
[~2021-06-14] MED LIST changes: +BUPIVACAINE HCL 0.25% 30ML VIAL As Ordered ONE; +ISOVUE-M 300 61% 15ML VIAL As Ordered ONE; +LIDOCAINE 1% SDV 30ML VIAL As Ordered ONE; +TRIAMCINOLONE ACETONIDE SUSP 40 MG/ML VIAL (J3301) As Ordered ONE
--- NOTE | 2021-06-14 12:44 | REP ---
INDICATION: BILATERAL SACROILIAC JOINT BLOCK. COMPARISON: None. TECHNIQUE: 24.6 seconds of fluoroscopy time is reported. 2 fluoroscopically obtained spot radiographs. FINDINGS: A sequence of 2 last image hold fluoroscopic spot radiographs the SI joints document bilateral needle position and contrast injection associated with injection procedure. IMPRESSION: Procedural imaging. <Electronically signed by John Paul Johnson > 06/14/21 [id number]
--- NOTE | 2021-06-15 02:45 | ECWPNPC ---
PATIENT NAME: CYNTHIA LAROSE : 1950 GENDER: FEMALE VISIT DATE: 06/14/2021 DISCHARGE DATE: 06/14/21 1209 VISIT LOCKED DATE TIME: PHYSICIAN: DIANA BOOKER MD RESOURCE: DIANA BOOKER MD REASON FOR APPOINTMENT 1. BILATERAL SACROILIAC JOINT BLOCK HISTORY OF PRESENT ILLNESS GENERAL: -. FALL RISK SCREENING: SCREENING : ONE FALL REPORTED IN THE LAST YEAR WITHOUT INJURY. PAIN SCREENING: PATIENT HAS A COMPLAINT OF ACUTE OR CHRONIC PAIN :YES LOCATION OF PAIN:LOW BACK, LEG(S) INTENSITY OF PAIN (SCALE OF 1 TO 10):2 UP TO 7 WITH ACTIVITY WHAT DOES YOUR PAIN FEEL LIKE:THROBBING DURATION:CONTINOUS, CONSTANT PAIN IS INCREASED BY:ACTIVITIES PAIN IS DECREASED BY: INJECTIONS NURSING NOTE: -. PAIN CENTER INTAKE QUESTIONS: DO YOU HAVE A HISTORY OF MRSA? :NO DO YOU TAKE A BLOOD THINNERS? :NO DO YOU HAVE ANY BLEEDING DISORDERS? :NO ANY NEW NUMBNESS OR WEAKNESS IN YOUR LEGS OR ARMS? :YES BILAT LEGS ANY PACEMAKER,DEFIBRILLATOR, OR DORSAL COLUMN STIMULATOR? :NO DO YOU HAVE ANY RASHES OR OPEN SORES? :NO ARE YOU ALLERGIC TO IV DYE? :NO ARE YOU DIABETIC? :NO ANY NEW PROBLEMS WITH YOUR MEDICATIONS? :NO HAVE YOU RECEIVED A VACCINE IN THE PAST 30 DAYS? :NO DO YOU PLAN TO RECEIVE A VACCINE IN THE NEXT 21 DAYS? :NO DO YOU TAKE ANY IMMUNOSUPPRESSIVE MEDICATIONS? :NO ANY HISTORY OF SEIZURES? :NO ANY HISTORY OF CARDIAC ISSUES OR EVENTS? :NO DO YOU HAVE ANY KIDNEY OR LIVER DISEASE? :NO DO YOU HAVE SLEEP APNEA? :NO ANY RECENT HEAD INJURY? :NO DO YOU HAVE ANY NEW INFECTIONS? :NO IS THERE A CHANCE YOU COULD BE ? :NO ARE YOU BREAST FEEDING? :NO WHEN DID YOU LAST EAT? : 06/13/21 2100 WHEN DID YOU LAST DRINK? : 0800 WHAT DID YOU LAST DRINK? : WATER NAME OF PERSON DRIVING YOU HOME? : DAVONTE DO YOU HAVE ANY OTHER QUESTIONS OR CONCERNS? : NO CURRENT MEDICATIONS TAKING ROPINIROLE HCL 0.5 MG TABLET 2.MG 2 TABLETS 1 TO 3 HOURS BEFORE BEDTIME ORALLY ONCE A DAY TAKING OMEPRAZOLE 20 MG CAPSULE DELAYED RELEASE 1 CAPSULE ORALLY ONCE A DAY TAKING OLODATEROL HCL 2.5 MCG/ACT AEROSOL SOLUTION 2 PUFFS INHALATION ONCE A DAY, NOTES: 06/13/21 0800 TAKING EZETIMIBE 10 MG TABLET 1 TABLET ORALLY ONCE A DAY TAKING ACETAMINOPHEN 500 MG TABLET 2 TABLETS ORALLY EVERY 6 HOURS NEEDED (MDD 3000 MG) TAKING CALTRATE 600 1500 (600 CA) MG TABLET 1 CAP ORALLY BID TAKING ASPIRIN 81 MG TABLET CHEWABLE 1 TABLET ORALLY TWICE A DAY, NOTES: 0800 TAKING GABAPENTIN 300 MG CAPSULE 1 CAPSULE ORALLY TWICE A DAY TAKING CELEBREX 100 MG CAPSULE 1 CAPSULE WITH FOOD ORALLY BID, NOTES: 0800 TAKING LIDOCAINE & ADHESIVE SHEET 5 % KIT DIRECTED EXTERNALLY PRN TAKING CYCLOBENZAPRINE HCL 10 MG TABLET 1 TABLET AT BEDTIME NEEDED ORALLY ONCE A DAY PRN, NOTES: NONE RECENTLY TAKING EYE DROPS TAKING FAMOTIDINE NOT-TAKING CYCLOSPORINE 0.1 % EMULSION 1 DROP INTO AFFECTED EYE OPHTHALMIC BEFORE BEDTIME NOT-TAKING TIMOLOL MALEATE 0.25 % SOLUTION 1 DROP INTO AFFECTED EYE OPHTHALMIC ONCE A DAY NOT-TAKING TRAMADOL HCL 50 MG TABLET 1 TABLET NEEDED ORALLY EVERY 6 HRS NOT-TAKING LATANOPROST 0.005 % SOLUTION 1 DROP INTO AFFECTED EYE IN THE EVENING OPHTHALMIC ONCE A DAY NOT-TAKING MAY HAVE CBD OIL ORALLY BID NOT-TAKING ALBUTEROL SULFATE HFA 108 (90 BASE) MCG/ACT AEROSOL SOLUTION 2 PUFFS NEEDED INHALATION EVERY 6 HRS NOT-TAKING ATORVASTATIN CALCIUM 10 MG TABLET 1 TABLET ORALLY ONCE A DAY NOT-TAKING MYRBETRIQ 50 MG TABLET EXTENDED RELEASE 24 HOUR 1 TABLET ORALLY ONCE A DAY MEDICATION LIST REVIEWED AND RECONCILED WITH THE PATIENT PAST MEDICAL HISTORY GLAUCOMA LOW BACK PAIN ALLERGIC RHINITIS HYPERLIPIDEMIA DYSPEPSIA, DYSPHAGIA OSTEOPENIA CHOLELITHIASIS HEMORRHOIDS RECTAL MASS RESTLESS LEGS BREAST CANCER COPD OSTEOARTHRITIS ALLERGIES PENICILLIN (FOR ALLERGIES USE ONLY): JOINT PAIN - SIDE EFFECTS OXYCODONE HCL: DIZZINESS - SIDE EFFECTS HYDROCODONE BITARTRATE: DIZZINESS - SIDE EFFECTS SOCIAL HISTORY GENERAL: TOBACCO USE ARE YOU A:FORMER SMOKER QUIT 10-05-2005 LATEX QUESTIONNAIRE LATEX ALLERGY : HAVE YOU EVER DEVELOPED ANY TYPE OF REACTION AFTER HANDLING LATEX PRODUCTS SUCH RUBBER GLOVES, CONDOMS, DIAPHRAGMS, BALLOONS, SOCKS, OR UNDERWEAR?NO LATEX ALLERGY : HAVE YOU EVER DEVELOPED ANY TYPE OF REACTION DURING OR AFTER DENTAL APPOINTMENT, VAGINAL/RECTAL EXAMINATION, SURGICAL PROCEDURE, OR ANY OTHER EXPOSURE?NO DATE ASKED : 05/12/2021 LATEX RISK : HAVE YOU EVER HAD ANY DIFFICULTY BREATHING OR HIVES AFTER EATING OR HANDLING ANY FRUITS, OR VEGETABLES; SUCH KIWI, BANANAS, STONE FRUITS, OR CHESTNUTSNO LATEX RISK : DO YOU HAVE A PREVIOUS PERSONAL HISTORY OF MORE THAN NINE SURGERIES, SPINA BIFIDA, OR REPEATED CATHERIZATIONS? NO LATEX RISK : ARE YOU FREQUENTLY EXPOSED TO LATEX PRODUCTS IN YOUR OCCUPATION?NO ALCOHOL USE: NO. ALCOHOL SCREENING DID YOU HAVE A DRINK CONTAINING ALCOHOL IN THE PAST YEAR?NO POINTS0 INTERPRETATIONNEGATIVE RECREATIONAL DRUG USE DRUG USE?NO CAFFEINE CAFFEINE USE?YES HOW OFTEN AND HOW MUCH? 2/DAY COFFEE- ICED TEA ZOROASTRIAN [id number] OTHER LANGUAGE LANGUAGES SPOKEN:MALAY EDUCATION LEVEL OF EDUCATION:FINISHED COLLEGE ASSOCIATES DEGREE LEARNING BARRIERS / SPECIAL NEEDS CHANGE FROM LAST VISIT?NO BARRIERS TO LEARNING?NO HEARING IMPAIRED?NO VISION IMPAIRED?YES COGNITIVELY IMPAIRED?NO :CORRECTIVE LENSES READINESS TO LEARN?YES LEARNING PREFERENCES?NO LEARNING CAPABILITIES PRESENT?YES EMOTIONAL BARRIERS?NO SPECIAL DEVICES?YES :CANE NEEDED SEO ANALYST 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 DIET: REGULAR. EXERCISE: NONE. MARITAL STATUS: SINGLE. TODAY'S VISIT 03/16/20, PATIENT DESCRIBES PAIN : ACHING, HAVE IT ALL THE TIME, STABBING, TENDER, SORE, SHOOTING, FROM 0-10, WHAT LEVEL IS YOUR PAIN TODAY? 6, PRECIPITATING FACTORS WALKING ALOT. GOING UP AND DOWN STAIRS, LIFTING AND HELPING HER HOUSE MATE, DAMP WEATHER, ALLEVIATING FACTORS HEAT, REST, IMPACT ON FUNCTION LIMITS HER ON WHAT SHE IS ABLE TO DO. - HAS THE PATIENT BEEN EDUCATED REGARDING HIS/HER PLAN OF CARE?YES HAS THE PATIENT BEEN EDUCATED REGARDING PAIN, THE RISK FOR PAIN, THE IMPORTANCE OF EFFECTIVE PAIN MANAGEMENT, AND THE PAIN ASSESSMENT PROCESS?YES ADVANCE DIRECTIVE ADVANCE DIRECTIVE DISCUSSED WITH PATIENT:YES HCP ON FILE @[facility] ([place]) [phone] (HOME), (CELL) VITAL SIGNS WT 233.0 LBS, HT 69 IN, BMI 34.40 INDEX, BP 130/70 MM HG, HR 85 /MIN, RR 18 /MIN, TEMP 98.2 F, OXYGEN SAT % 95%, SAFE IN ENV? (Y/N) YES, NA INITIALS AW 0955, REVIEWED BY: APA. LI RN. EXAMINATION GENERAL: THE PATIENT IS ALERT, ORIENTED TIMES THREE AND COOPERATIVE. LUNGS ARE CLEAR TO AUSCULTATION. HEART SHOWS REGULAR RHYTHM, NO MURMURS AND NO GALLOPS. ASSESSMENTS SACROILIITIS, NOT ELSEWHERE CLASSIFIED - M46.1 (PRIMARY) TREATMENT SACROILIITIS, NOT ELSEWHERE CLASSIFIED [facility] FLUORO GUIDANCE (PAIN)[id number] COMPLETION OF PROCEDURAL VISIT WHEN MEETS CRITERIAPEMARVIN BETTSGAIL R 06/14/2021 12:05:05 PM > CRITERIA MET OTHERS NOTES: PAT DONE 06/09/21 EM. PROCEDURES PAIN NURSING RECORD PROCEDURE IN ROOM 1129, PHYSICIAN IN ROOM 1141, START 1145, FINISH 1152, PHYSICIAN OUT OF ROOM 1153, OUT OF ROOM 1158, ECG NORMAL SINUS, PATIENT SHIELDED YES, SAFETY STRAP YES, PREP CHLOROPREP Liana JEFFERSON RN, DRESSING TEGADERM DR. BOOKER LOC: PETRAS,JUAN R 06/14/2021 11:45:51 AM > , 1. ALERT, ORIENTED RESP: PETRAS,JUAN R 06/14/2021 11:45:54 AM > , 1. REGULAR, NO DYSPNEA COLOR: PETRAS,JUAN R 06/14/2021 11:45:57 AM > , 1. PINK SKIN: PETRAS,JUAN R 06/14/2021 11:46:04 AM > , 1. WARM, DRY POSITION: PETRAS,JUAN R 06/14/2021 11:46:07 AM > , 1. PRONE VITALS: PETRAS,JUAN R 06/14/2021 11:32:05 AM > 131/69, 79, 18, 97% PETRAS,JUAN R 06/14/2021 11:40:38 AM > 142/83, 80, 18, 97% PETRAS,JUAN R 06/14/2021 11:52:49 AM > 128/61, 76, 18, 97% PETRAS,JUAN R 06/14/2021 12:05:21 PM > 130/76, 73, 16, 98% COMPLETION OF PROCEDURE APPOINTMENT: POST PAIN 2, DRESSING SITE DRY AND INTACT, IV N/A, GAIT STEADY, TEACHING COMPLETED, PATIENT ACKNOWLEDGES UNDERSTANDING YES, PROCEDURE APPOINTMENT COMPLETED AT 1208 BY: Liana JEFFERSON RN PN SI PRE PROCEDURE DIAGNOSIS SACROILIITIS, SACROILIAC JOINT DYSFUNCTION POST PROCEDURE DIAGNOSIS SACROILIITIS, SACROILIAC JOINT DYSFUNCTION PROCEDURE BILATERAL SACROILIAC JOINT BLOCK SURGEON DR. DIANA BOOKER SOFTWARE ENGINEERING SPECIALIST NONE ANESTHESIA LOCAL PRE PROCEDURE NOTE THE PATIENT WITH HISTORY OF CHRONIC LOW BACK PAIN. I EVALUATED THE PATIENT AND REVIEWED THE CHART. I WENT OVER THE RISKS, ALTERNATIVES, AND BENEFITS ASSOCIATED WITH THIS PROCEDURE. THE PATIENT WOULD LIKE TO PROCEED AND GAVE CONSENT TO PERFORM THE PROCEDURE. THE PATIENT DENIES UNEXPLAINABLE WEIGHT LOSS, FEVER, CHILLS, OR NEW CHANGES IN URINARY OR BOWEL CONTROL. THE PATIENT IS COVID-19 NEGATIVE DESCRIPTION OF PROCEDURE THE PATIENT WAS BROUGHT TO THE PROCEDURE ROOM AND PLACED IN THE PRONE POSITION. THE LUMBOSACRAL AREA WAS CLEANED WITH CHLORAPREP SOLUTION AND DRAPED ASEPTICALLY. THE PROCEDURE WAS DONE UNDER STERILE CONDITIONS. A TIMEOUT WAS PERFORMED WHERE THE CONSENTED SITE WAS VERIFIED WITH EVERYONE IN THE ROOM. UNDER FLUOROSCOPIC GUIDANCE, THE TARGET POINT WAS SELECTED AT THE LOWER BORDER OF THE RIGHT AND LEFT SACROILIAC JOINT. TARGET POINT WAS SELECTED AFTER MEDIAL ROTATION AND TILT OF THE MAGNIFIER OR THE C-ARM. I CONFIRMED AGAIN THE SITE OF TARGET. LIDOCAINE 0.5% WAS USED TO NUMB THE SKIN AND THE SUBCUTANEOUS TISSUE BELOW IT. SPINAL NEEDLES, 22-GAUGE, WERE ADVANCED UNDER FLUOROSCOPIC GUIDANCE AND FOLLOWING PATIENT FEEDBACK UNTIL THE TARGETS WERE TOUCHED. THE POSITION OF THE NEEDLES WAS VERIFIED WITH AP AND OBLIQUE VIEWS. AFTER PROPER POSITION OF THE NEEDLES WAS ACHIEVED, ISOVUE-M DYE 30%, 0.1 ML, WAS INJECTED SHOWING ADEQUATE SPREAD OF THE DYE. KENALOG 40 MG WAS INJECTED AT EACH SITE. THEN, A SOLUTION OF 3.0 ML OF BUPIVACAINE 0.125% WAS USED TO FLUSH EACH NEEDLE. THE MEDICATIONS WERE VERIFIED WITH THE NURSE. THERE WAS NO EVIDENCE OF BLOOD, PARESTHESIA OR CEREBROSPINAL FLUID DURING THE PROCEDURE. THE PATIENT WAS SENT TO THE RECOVERY ROOM. THE PATIENT WAS MOVING THE EXTREMITIES AND DOING WELL. THERE WERE NO COMPLICATIONS DURING THE PROCEDURE. ESTIMATED BLOOD LOSS WAS LESS THAN 5 ML. FLUOROSCOPIC TIME WAS 24 SECONDS. POST PROCEDURE NOTE THE PROCEDURE DONE WAS DISCUSSED WITH THE PATIENT. THE PATIENT WILL BE SEEN IN A FOLLOW UP IN THE NEXT FEW WEEKS. I AM LOOKING FOR LONG LASTING PAIN RELIEF FOR THE PATIENT WITH THIS INTERVENTION. INSTRUCTIONS WERE GIVEN, QUESTIONS WERE ANSWERED, AND THE PATIENT EXPRESSED UNDERSTANDING AND AGREES WITH THE PLAN. I, EVERARDO FISHER, DOCUMENTED THE ABOVE INFORMATION ACTING A SCRIBE FOR DR. BOOKER. I HAVE REVIEWED THE ABOVE DOCUMENT, WRITTEN BY EVERARDO FISHER PACKAGE DYER, AND I VERIFY THAT IT IS ACCURATE PROCEDURE CODES 29008 INJECT SACROILIAC JOINT, MODIFIERS: 50 DISPOSITION & COMMUNICATION FOLLOW UP FOLLOW UP WITH SCROLL SHEAR OPERATOR (REASON: POST BILATERAL SACROILIAC JOINT BLOCK) ELECTRONICALLY SIGNED BY DIANA BOOKER MD, MD ON 06/14/2021 AT 05:47 PM EDT DISCLAIMER : THIS IS A VISIT SUMMARY EXTRACTED FROM THE [employer] CHART. IT IS NOT A COPY OF THE [employer] PROGRESS NOTE. JORDYN
== END ==
LOC: M PAIN 10:00
PROVIDERS: ATTEND Anesthesiology
DX: M46.1 Sacroiliitis, not elsewhere classified (principal); H40.9 Unspecified glaucoma; M54.5 Low back pain; J30.9 Allergic rhinitis, unspecified; R78.5 Finding of other psychotropic drug in blood; R13.10 Dysphagia, unspecified; R10.13 Epigastric pain; G25.81 Restless legs syndrome; H04.123 Dry eye syndrome of bilateral lacrimal glands; J44.9 Chronic obstructive pulmonary disease, unspecified; M19.90 Unspecified osteoarthritis, unspecified site; Z87.891 Personal history of nicotine dependence; Z79.82 Long term (current) use of aspirin; Z79.899 Other long term (current) drug therapy; Z88.0 Allergy status to penicillin; Z88.5 Allergy status to narcotic agent
CPT/HCPCS: G0260; J3301; Q9967

== ENCOUNTER → 2021-06-29 | Outpatient (CLI) | payer OTHER ==
[~2021-06-29] MED LIST changes: -BUPIVACAINE HCL 0.25% 30ML VIAL As Ordered ONE; -ISOVUE-M 300 61% 15ML VIAL As Ordered ONE; -LIDOCAINE 1% SDV 30ML VIAL As Ordered ONE; -TRIAMCINOLONE ACETONIDE SUSP 40 MG/ML VIAL (J3301) As Ordered ONE
== END ==
LOC: M PAIN 10:30
PROVIDERS: ATTEND Anesthesiology
DX: G89.29 Other chronic pain (principal); M53.3 Sacrococcygeal disorders, not elsewhere classified; H40.9 Unspecified glaucoma; M54.5 Low back pain; J30.9 Allergic rhinitis, unspecified; E78.5 Hyperlipidemia, unspecified; R13.10 Dysphagia, unspecified; R10.13 Epigastric pain; M85.80 Other specified disorders of bone density and structure, unspecified site; G25.81 Restless legs syndrome; J44.9 Chronic obstructive pulmonary disease, unspecified; Z85.3 Personal history of malignant neoplasm of breast; M19.90 Unspecified osteoarthritis, unspecified site; Z87.891 Personal history of nicotine dependence; Z79.891 Long term (current) use of opiate analgesic; Z79.899 Other long term (current) drug therapy; Z88.0 Allergy status to penicillin; Z88.5 Allergy status to narcotic agent

== ENCOUNTER → 2021-08-04 | Outpatient (CLI) | payer OTHER | LOC: M PAIN 15:00 | PROVIDERS: ATTEND Anesthesiology | DX: M53.3 Sacrococcygeal disorders, not elsewhere classified (principal); H40.9 Unspecified glaucoma; E78.5 Hyperlipidemia, unspecified; R13.10 Dysphagia, unspecified; R10.13 Epigastric pain; G25.81 Restless legs syndrome; J44.9 Chronic obstructive pulmonary disease, unspecified; Z85.3 Personal history of malignant neoplasm of breast; N39.3 Stress incontinence (female) (male); Z87.891 Personal history of nicotine dependence; Z79.82 Long term (current) use of aspirin; Z79.899 Other long term (current) drug therapy; Z88.0 Allergy status to penicillin; Z88.5 Allergy status to narcotic agent ==

== ENCOUNTER → 2022-08-08 | Outpatient (CLI) | payer OTHER ==
[~2022-08-08] MED LIST changes: +PROHANCE 279.3MG/ML 15ML VIAL As Ordered ONE; +PROHANCE 279.3MG/ML 5ML VIAL As Ordered ONE
== END ==
LOC: M RAD 13:00
PROVIDERS: ATTEND Nurse Practitioner Family
DX: Z12.31 Encounter for screening mammogram for malignant neoplasm of breast (principal); Z85.3 Personal history of malignant neoplasm of breast; Z90.13 Acquired absence of bilateral breasts and nipples
CPT/HCPCS: A9576; C8908

== ENCOUNTER → 2025-05-26 | Outpatient (CLI) | payer MEDICARE, OTHER ==
[~2025-05-26] MED LIST changes: -CELE1CAP7 PO; +CELE1CAP99 PO; +GABA-1172 PO; -GABA-282 PO; +LETR2.5T2 PO; +LYRI75CA PO; +MIRA3350 PO; +MYRB50TA PO; +PREG-35 PO; -PROHANCE 279.3MG/ML 15ML VIAL As Ordered ONE; -PROHANCE 279.3MG/ML 5ML VIAL As Ordered ONE; +RIBO1TAB PO; -ROPI0.5T3 PO; +ROPI0.5T33 PO
== END ==
LOC: M PLARAD 09:56
PROVIDERS: ATTEND Internal Medicine Hematology & Oncology
DX: C50.812 Malignant neoplasm of overlapping sites of left female breast (principal)
CPT/HCPCS: 78815; A9552